=== PATIENT | female | born 1960 | race Caucasian/White ===

== ENCOUNTER 2021-08-15 05:29 | Outpatient (CLI) | payer OTHER, SELFPAY | END 2021-08-15 05:30 | disposition home or self-care (01) | LOC: AMB 08-25 15:04 | PROVIDERS: PCP Physician Assistant Medical; Visit Provider Family Medicine | DX: M25.561 Pain in right knee (principal) | CPT/HCPCS: A0425; A0429 ==

== ENCOUNTER 2021-08-15 05:46 | Emergency (ER) | payer OTHER, SELFPAY ==
[2021-08-15 05:55] VITALS: BP 113/83; PULSE 102; RESP 20; TEMP 36.6; O2SAT 94; BMI 33.3
--- NOTE | 2021-08-15 06:20 | XR_ITS ---
Final Report Patient: LYNN BAKER Facility:?[facility] Patient ID:?[id number] Site Patient ID:?[id number]. Site :?[id number] Study:?XRay Knee Right 2v-08/15/2021 6:58:51 AM Ordering Physician:Rome York Final Report: Indication: Knee pain. Technique: Right knee 2 views. Comparison: None. Findings: No acute fracture or dislocation. Joint spaces are preserved. Mild tricompartmental spurring. Small to moderate knee joint effusion. Soft tissues are unremarkable. Impression: Small to moderate knee joint effusion. No other acute findings. Dictated by Christa Rodríguez MD @ 08/15/2021 7:02:07 AM (Electronic Signature)
--- NOTE | 2021-08-15 06:22 | ED_ITS ---
HPI - Extremity Injury (Lower) General Time Seen by Provider: 06:21 Date Seen: 08/15/21 Chief Complaint: Extremity Pain/Injury, Lower Stated Complaint: Knee pain Time Seen by Provider: 08/15/21 05:53 Source: patient Mode of arrival: EMS Limitations: no limitations History of Present Illness HPI Narrative: Patient is a 61-year-old female with rheumatoid arthritis who presents by ambulance code there is no one else to bring her to the emergency room. She has had gradually increasing knee pain in her right knee. She was recently placed on prednisone course that significantly help this by her primary care physician. Remember injuring her right knee, it is not been warm, there is no history of fevers, she did go to the [address] last week. And they wrapped her knee. But otherwise did nothing. MD complaint: other Onset (ago): day(s) Injury: Right: knee Other symptoms: none Treatments prior to arrival: other Related Data Home Medications Medication Instructions Recorded Confirmed albuterol sulfate 2.5 mg/3 mL mg 08/15/21 (0.083 %) solution for nebulization ammonium lactate 12 % lotion TOPICAL 08/15/21 atorvastatin 40 mg tablet mg 08/15/21 baclofen 20 mg tablet mg 08/15/21 blood sugar diagnostic (Contour 08/15/21 08/15/21 Next Test Strips) blood-glucose meter (Contour Next 08/15/21 08/15/21 Meter) cetirizine 10 mg tablet mg 08/15/21 dapagliflozin 10 mg tablet mg 08/15/21 (Farxiga) duloxetine 60 mg capsule,delayed mg PO 08/15/21 release fluticasone propionate 50 INTRANASAL 08/15/21 mcg/actuation nasal spray,suspension folic acid 1 mg tablet 08/15/21 furosemide 40 mg tablet mg 08/15/21 gabapentin 300 mg capsule mg 08/15/21 glipizide 10 mg tablet, extended mg PO 08/15/21 release 24 hr glipizide 5 mg tablet mg 08/15/21 methotrexate sodium 2.5 mg tablet mg 08/15/21 mometasone-formoterol HFA 200 INHALATION 08/15/21 mcg-5 mcg/actuation aerosol inhaler (Dulera) montelukast 10 mg tablet mg 08/15/21 nystatin 100,000 unit/gram topical TOPICAL 08/15/21 powder (Nystop) risperidone 0.5 mg tablet mg 08/15/21 venlafaxine 150 mg mg PO 08/15/21 capsule,extended release 24 hr venlafaxine 75 mg capsule,extended mg PO 08/15/21 release 24 hr Allergies Allergy/AdvReac Type Severity Reaction Status Date / Time chlorpromazine Allergy seizure Verified 08/15/21 06:08 hydrocodone Allergy Unknown Verified 08/15/21 06:11 oxycodone Allergy Unknown Verified 08/15/21 06:11 Phenothiazines Allergy seizure Verified 08/15/21 06:11 etodolac Allergy rash Uncoded 08/15/21 06:11 morphine Allergy Unknown Uncoded 08/15/21 06:11 pregabalin Allergy Unknown Uncoded 08/15/21 06:11 Review of Systems Status of ROS: Reports: 6 or more systems reviewed and unremarkable except as noted in History and below [facility] Medical History (Updated 08/15/21 @ 07:03 by Jaylen Wu MD) Asthma Diabetes Rheumatoid arthritis Seizure Surgical History (Updated 08/15/21 @ 06:29 by Radha Ventura RN) History of appendectomy Social History Smoking Status: Current every day smoker What tobacco products do you use: cigarettes Second hand tobacco smoke exposure: No How often do you have a drink containing alcohol: never AUDIT-C Alcohol total score: 0 Non-prescribed substance use: denies use Exam Narrative: Exam Narrative: 61-year-old woman I find sleeping in the room when I enter the room. Her right knee is more swollen than the left in fact the left knee is wrapped. Her range of motion is from +5 to +40. With pain there is no palpable warmth to the right knee. She appears to have a small effusion, popliteal fossa is clear, with normal pulses. ACL and PCL seem intact. As do the lateral medial collateral ligaments. Const: Vital Signs, click to edit/add: Vital Signs - 24 hr 08/15/21 05:55 Temperature 97.8 F Pulse Rate [Right Pulse Oximeter] 102 H Respiratory Rate 20 Blood Pressure [Ri ght Upper Arm] 113/83 Pulse Oximetry 94 Course Vital Signs Vital signs: Initial Vital Signs Temperature 97.8 F 08/15/21 05:55 Temperature Source Temporal Artery Scan 08/15/21 05:55 Pulse Rate 102 H 08/15/21 05:55 Pulse Rhythm 08/15/21 05:55 Pulse Strength 3+ Normal 08/15/21 05:55 Respiratory Rate 20 08/15/21 05:55 Blood Pressure 113/83 08/15/21 05:55 Blood Pressure Mean 93 08/15/21 05:55 Blood Pressure Position Sitting 08/15/21 05:55 Pulse Oximetry 94 08/15/21 05:55 Oxygen Delivery Method 08/15/21 05:55 Vital Signs Temperature 97.8 F 08/15/21 05:55 Pulse Rate 102 H 08/15/21 05:55 Respiratory Rate 20 08/15/21 05:55 Blood Pressure 113/83 08/15/21 05:55 Pulse Oximetry 94 08/15/21 05:55 Temperature 97.8 F 08/15/21 05:55 Pulse Rate 102 H 08/15/21 05:55 Respiratory Rate 20 08/15/21 05:55 Blood Pressure 113/83 08/15/21 05:55 Pulse Oximetry 94 08/15/21 05:55 MDM - Extremity Injury (Lower) MDM Narrative Medical decision making narrative: 61-year-old female who suffers from rheumatoid arthritis who likely has a flare of her rheumatoid arthritis. She was recently on prednisone that was stopped. I think it would be not unreasonable to give her a longer tapering course. She will need to follow up with likely her primary care physician Orthopedics for ongoing care. I think it is unlikely that this is infectious, or related to a gouty arthropathy. I will give her a tapering dose of prednisone via instymeds. I did ask chest with her this will elevate her sugars. Differential Diagnosis Differential diagnosis: Likely ankle sprain and strain and acute internal derangement of knee Medical Records Attestation: I reviewed the patient's medical records. Medical records narrative: I reviewed the patient's CCD, active problems include rheumatoid arthritis, diabetes mellitus, depression, alcohol abuse in remission, asthma, biceps tendinitis, bipolar disorder, borderline personality disorder, chronic low back pain, compulsive skin picking, diabetic polyneuropathy, diverticulitis dysphagia fibromyalgia, hoarding behavior, memory impairment, meralgia paresthetica, PTSD, chondromalacia of patella, Imaging Data Right knee x-ray two view: Attestation: I have reviewed the pertinent imaging results. My impression: Mild to moderate arthritis, effusion noted no fracture by my review. Radiologist's impression: Patient: LYNN BAKER Facility:?[facility] Patient ID:?[id number] Site Patient ID:?[id number]. Site :?[id number] Study:?XRay Knee Right 2v-08/15/2021 6:58:51 AM Ordering Physician:Rome York Final Report: Indication: Knee pain. Technique: Right knee 2 views. Comparison: None. Findings: No acute fracture or dislocation. Joint spaces are preserved. Mild tricompartmental spurring. Small to moderate knee joint effusion. Soft tissues are unremarkable. Impression: Small to moderate knee joint effusion. No other acute findings. Dictated by Christa Rodríguez MD @ 08/15/2021 7:02:07 AM (Electronic Signature) Discharge Plan Discharge Clinical Impression: Acute internal derangement of knee Patient Disposition: Home, Self-Care Condition: Stable Instructions: Knee Pain (ED) Activity Level: Weight Bearing as Tolerated Prescriptions: No Action furosemide 40 mg tablet 0RF atorvastatin 40 mg tablet 0RF Label Comments: TAKE ONE TABLET BY MOUTH AT BEDTIME venlafaxine 75 mg capsule,extended release 24hr PO 0RF Label Comments: TAKE ONE CAPSULE BY MOUTH ONCE DAILY WITH A MEAL albuterol sulfate 2.5 mg /3 mL (0.083 %) solution for nebulization 0RF Label Comments: INHALE 3 ML (2.5 MG) VIA A NEBULIZER EVERY 4 HOURS IF NEEDED. ammonium lactate 12 % lotion TOPICAL 0RF Label Comments: APPLY TOPICALLY TO AFFECTED AREA(S) 2 TIMES DAILY. (DME) blood-glucose meter [Contour Next Meter] Misc MISCELLANEOUS 0RF Label Comments: DISPENSE METER, TEST STRIPS, LANCETS COVERED BY PT INS. E11.65 NIDDM TYPE II, UNCONTROLLED - TEST 3 TIMES/DAY, REASON: HYPOGLYCEMIA cetirizine 10 mg tablet 0RF Label Comments: TAKE 1 TABLET BY MOUTH ONCE DAILY glipizide 10 mg tablet extended release 24hr PO 0RF Label Comments: TAKE 1 TABLET BY MOUTH ONCE DAILY BEFORE A MEAL venlafaxine 150 mg capsule,extended release 24hr PO 0RF Label Comments: TAKE ONE CAPSULE BY MOUTH ONCE DAILY WITH A MEAL (DME) Contour Next Test Strips Strip MISCELLANEOUS 0RF Label Comments: TEST BLOOD SUGARS 3 TIMES PER DAY. baclofen 20 mg tablet 0RF Label Comments: TAKE 1 TABLET BY MOUTH THREE TIMES DAILY methotrexate sodium 2.5 mg tablet 0RF Label Comments: TAKE 10 TABLETS (25MG) BY MOUTH ONCE WEEKLY gabapentin 300 mg capsule 0RF folic acid 1 mg tablet 0RF Label Comments: TAKE 1 TABLET BY MOUTH ONCE DAILY montelukast 10 mg tablet 0RF Label Comments: TAKE 1 TABLET BY MOUTH ONCE DAILY AT BEDTIME nystatin [Nystop] 100,000 unit/gram powder TOPICAL 0RF Label Comments: APPLY 1 STRIP TOPICALLY TO AFFECTED AREA(S) 3 TIMES DAILY. fluticasone propionate 50 mcg/actuation spray,suspension INTRANASAL 0RF Label Comments: INSTILL 1 SPRAY INTO EACH NOSTRIL TWICE DAILY NEEDED glipizide 5 mg tablet 0RF Label Comments: TAKE ONE TABLET BY MOUTH ONCE DAILY BEFORE A MEAL risperidone 0.5 mg tablet 0RF Label Comments: TAKE 1 TABLET BY MOUTH ONCE DAILY IN THE AFTERNOON duloxetine 60 mg capsule,delayed release(DR/EC) PO 0RF Label Comments: TAKE 1 CAPSULE BY MOUTH TWICE DAILY Dulera 200-5 mcg/actuation HFA aerosol inhaler INHALATION 0RF Label Comments: INHALE 2 PUFFS BY MOUTH TWICE A DAY Farxiga 10 mg tablet 0RF Follow Up/Referrals: Silvia Campos PA-C [Primary Care Provider] - Stand Alone Forms: [facility] Info Instructions
--- NOTE | 2021-08-15 07:34 | PC.NURSE ---
discharge instructions given, pt given insty med for prednisone, left ER via wheelchair
== END 2021-08-15 07:30 | disposition home or self-care (01) ==
PROVIDERS: Emergency Provider Family Medicine; PCP Physician Assistant Medical
DX: M23.91 Unspecified internal derangement of right knee (principal)
CPT/HCPCS: 73560; 99282; 99283

== ENCOUNTER 2021-09-09 19:03 | Outpatient (CLI) | payer OTHER, SELFPAY | END 2021-09-09 19:04 | disposition home or self-care (01) | LOC: AMB 10-01 10:57 | PROVIDERS: PCP Physician Assistant Medical; Visit Provider Internal Medicine | DX: M25.561 Pain in right knee (principal) | CPT/HCPCS: A0425; A0429 ==

== ENCOUNTER 2021-09-09 19:26 | Emergency (ER) | payer OTHER, SELFPAY ==
[2021-09-09 19:35] VITALS: BP 144/66; PULSE 93; RESP 16; TEMP 36.7; O2SAT 98; BMI 34.9
--- NOTE | 2021-09-09 19:59 | ED_ITS ---
HPI - General Adult General Chief complaint: Unspecified Complaint, Adult Stated complaint: Knee Pain Time Seen by Provider: 09/09/21 19:48 History of Present Illness HPI narrative: Patient is a his chronic knee pain new showed osteoarthritis. He has had no. She has orthopedic follow-up next month. She is unable to get help with her severe pain fevers no chills no redness. She otherwise is feeling well. She she would be able to safely wait to her orthopedic appointment in 3 weeks. This time pain is severe. Room Related Data Home Medications Medication Instructions Recorded Confirmed albuterol sulfate 2.5 mg/3 mL mg 08/15/21 (0.083 %) solution for nebulization ammonium lactate 12 % lotion TOPICAL 08/15/21 atorvastatin 40 mg tablet mg 08/15/21 baclofen 20 mg tablet mg 08/15/21 blood sugar diagnostic (Contour 08/15/21 08/15/21 Next Test Strips) blood-glucose meter (Contour Next 08/15/21 08/15/21 Meter) cetirizine 10 mg tablet mg 08/15/21 dapagliflozin 10 mg tablet mg 08/15/21 (Farxiga) duloxetine 60 mg capsule,delayed mg PO 08/15/21 release fluticasone propionate 50 INTRANASAL 08/15/21 mcg/actuation nasal spray,suspension folic acid 1 mg tablet 08/15/21 furosemide 40 mg tablet mg 08/15/21 gabapentin 300 mg capsule mg 08/15/21 glipizide 10 mg tablet, extended mg PO 08/15/21 release 24 hr glipizide 5 mg tablet mg 08/15/21 methotrexate sodium 2.5 mg tablet mg 08/15/21 mometasone-formoterol HFA 200 INHALATION 08/15/21 mcg-5 mcg/actuation aerosol inhaler (Dulera) montelukast 10 mg tablet mg 08/15/21 nystatin 100,000 unit/gram topical TOPICAL 08/15/21 powder (Nystop) risperidone 0.5 mg tablet mg 08/15/21 venlafaxine 150 mg mg PO 08/15/21 capsule,extended release 24 hr venlafaxine 75 mg capsule,extended mg PO 08/15/21 release 24 hr Allergies Allergy/AdvReac Type Severity Reaction Status Date / Time chlorpromazine Allergy seizure Verified 08/15/21 06:08 hydrocodone Allergy Unknown Verified 08/15/21 06:11 oxycodone Allergy Unknown Verified 08/15/21 06:11 Phenothiazines Allergy seizure Verified 08/15/21 06:11 etodolac Allergy rash Uncoded 08/15/21 06:11 morphine Allergy Unknown Uncoded 08/15/21 06:11 pregabalin Allergy Unknown Uncoded 08/15/21 06:11 Review of Systems Status of ROS: Reports: 10 or more systems reviewed and unremarkable except as noted in History and below [facility] Medical History Asthma Diabetes Rheumatoid arthritis Seizure Surgical History History of appendectomy Social History Smoking Status: Current every day smoker What tobacco products do you use: cigarettes Second hand tobacco smoke exposure: No How often do you have a drink containing alcohol: never AUDIT-C Alcohol total score: 0 Non-prescribed substance use: denies use Exam Narrative: Exam Narrative: EXAM GENERAL: Patient appears comfortable and well. EYES: No scleral icterus. LYMPH: No supraclavicular or cervical lymphadenopathy. SKIN: Visible skin seen during exam normal or with benign process only. EXT: No dependent lower extremity pedal edema.Right knee is tender to palpation with a joint effusion. No signs of redness were warm HEART: Regular rate and rhythm with no murmurs, rubs, or gallops. LUNGS: Clear to auscultation bilaterally with no crackles or wheezes. ABD: Soft, non tender, non distended. PSYCH: Good eye contact, speech is not pressured. Const: Vital Signs, click to edit/add: Vital Signs - 24 hr 09/09/21 19:35 Temperature 98.1 F Pulse Rate [Right Pulse Oximeter] 93 Respiratory Rate 16 Blood Pressure [Ri ght Upper Arm] 144/66 H Pulse Oximetry 98 Course Course Hospital Course: discussion and decided to treat her with into Solu-Medrol as well as a 5 day course of prednisone. Patient's sugars me that she can now care her current medication. Vital Signs Vital signs: Initial Vital Signs Temperature 98.1 F 09/09/21 19:35 Temperature Source Temporal Artery Scan 09/09/21 19:35 Pulse Rate 93 09/09/21 19:35 Pulse Rhythm 09/09/21 19:35 Respiratory Rate 16 09/09/21 19:35 Blood Pressure 144/66 H 09/09/21 19:35 Blood Pressure Mean 92 09/09/21 19:35 Blood Pressure Position Supine 09/09/21 19:35 Pulse Oximetry 98 09/09/21 19:35 Oxygen Delivery Method 09/09/21 19:35 Vital Signs Temperature 98.1 F 09/09/21 19:35 Pulse Rate 93 09/09/21 19:35 Respiratory Rate 16 09/09/21 19:35 Blood Pressure 144/66 H 09/09/21 19:35 Pulse Oximetry 98 09/09/21 19:35 Temperature 98.1 F 09/09/21 19:35 Pulse Rate 93 09/09/21 19:35 Respiratory Rate 16 09/09/21 19:35 Blood Pressure 144/66 H 09/09/21 19:35 Pulse Oximetry 98 09/09/21 19:35 Discharge Plan Discharge Clinical Impression: Chronic pain of right knee Patient Disposition: Home, Self-Care Condition: Stable Instructions: Knee Pain (ED) Additional Instructions: Prednisone per Instymeds Ice Follow up with Orthopedics as previously scheduled Activity Level: No Restrictions Discharge Diet: Regular Prescriptions: No Action furosemide 40 mg tablet 0RF atorvastatin 40 mg tablet 0RF Label Comments: TAKE ONE TABLET BY MOUTH AT BEDTIME venlafaxine 75 mg capsule,extended release 24hr PO 0RF Label Comments: TAKE ONE CAPSULE BY MOUTH ONCE DAILY WITH A MEAL albuterol sulfate 2.5 mg /3 mL (0.083 %) solution for nebulization 0RF Label Comments: INHALE 3 ML (2.5 MG) VIA A NEBULIZER EVERY 4 HOURS IF NEEDED. ammonium lactate 12 % lotion TOPICAL 0RF Label Comments: APPLY TOPICALLY TO AFFECTED AREA(S) 2 TIMES DAILY. (DME) blood-glucose meter [Contour Next Meter] Misc MISCELLANEOUS 0RF Label Comments: DISPENSE METER, TEST STRIPS, LANCETS COVERED BY PT INS. E11.65 NIDDM TYPE II, UNCONTROLLED - TEST 3 TIMES/DAY, REASON: HYPOGLYCEMIA cetirizine 10 mg tablet 0RF Label Comments: TAKE 1 TABLET BY MOUTH ONCE DAILY glipizide 10 mg tablet extended release 24hr PO 0RF Label Comments: TAKE 1 TABLET BY MOUTH ONCE DAILY BEFORE A MEAL venlafaxine 150 mg capsule,extended release 24hr PO 0RF Label Comments: TAKE ONE CAPSULE BY MOUTH ONCE DAILY WITH A MEAL (DME) Contour Next Test Strips Strip MISCELLANEOUS 0RF Label Comments: TEST BLOOD SUGARS 3 TIMES PER DAY. baclofen 20 mg tablet 0RF Label Comments: TAKE 1 TABLET BY MOUTH THREE TIMES DAILY methotrexate sodium 2.5 mg tablet 0RF Label Comments: TAKE 10 TABLETS (25MG) BY MOUTH ONCE WEEKLY gabapentin 300 mg capsule 0RF folic acid 1 mg tablet 0RF Label Comments: TAKE 1 TABLET BY MOUTH ONCE DAILY montelukast 10 mg tablet 0RF Label Comments: TAKE 1 TABLET BY MOUTH ONCE DAILY AT BEDTIME nystatin [Nystop] 100,000 unit/gram powder TOPICAL 0RF Label Comments: APPLY 1 STRIP TOPICALLY TO AFFECTED AREA(S) 3 TIMES DAILY. fluticasone propionate 50 mcg/actuation spray,suspension INTRANASAL 0RF Label Comments: INSTILL 1 SPRAY INTO EACH NOSTRIL TWICE DAILY NEEDED glipizide 5 mg tablet 0RF Label Comments: TAKE ONE TABLET BY MOUTH ONCE DAILY BEFORE A MEAL risperidone 0.5 mg tablet 0RF Label Comments: TAKE 1 TABLET BY MOUTH ONCE DAILY IN THE AFTERNOON duloxetine 60 mg capsule,delayed release(DR/EC) PO 0RF Label Comments: TAKE 1 CAPSULE BY MOUTH TWICE DAILY Dulera 200-5 mcg/actuation HFA aerosol inhaler INHALATION 0RF Label Comments: INHALE 2 PUFFS BY MOUTH TWICE A DAY Farxiga 10 mg tablet 0RF Follow Up/Referrals: Silvia Campos PA-C [Primary Care Provider] - Stand Alone Forms: [facility] Info Instructions
[2021-09-09] MEDS: METHYLPREDNISOLONE SOD SUCC 40 MG/ML IM (20:22)
--- NOTE | 2021-09-09 22:48 | ED.NURSE ---
Pt can't find her keys. Staff looked several times in linens and all around the ED.
== END 2021-09-09 22:55 | disposition home or self-care (01) ==
LOC: ED 20:10
PROVIDERS: Emergency Provider Internal Medicine; PCP Physician Assistant Medical
DX: M25.561 Pain in right knee (principal)
CPT/HCPCS: 96372; 99283; 99284; J2920

== ENCOUNTER 2021-09-24 11:33 | Emergency (ER) | payer OTHER, SELFPAY ==
[2021-09-24] VITALS (14 sets, daily range): BP systolic 100–126; BP diastolic 50–83; PULSE 76–96; RESP 11–18; TEMP 36; O2SAT 91–100; BMI 38.3
[2021-09-24 12:37] LABS: Basophils Percent Auto 0.4 % (0.0-3.0); Eosinophils Percent Auto 1.4 % (0.0-7.0); Hematocrit 41.1 % (33.0-51.0); Hemoglobin* 12.8 gm/dL (12.0-16.0); Immature Granulocytes Abs Auto 0.01 K/uL (0.00-0.30); Lymphocytes Percent Auto 25.6 % (20-44); Mean Corpuscular HGB Conc 31 gm/dL (32-36); Mean Corpuscular Hemoglobin 28 pg (26-34); Mean Corpuscular Volume 89 fL (80-100); Monocytes Percent Auto 3.6 % (0.0-11.0); Neutrophils Percent Auto 68.6 % (42.0-72.0); Platelet Count* 124 K/uL (140-440); Red Blood Count 4.62 m/uL (4.00-5.20); White Blood Count* 2.81 K/uL (4.50-11.00)
[2021-09-24 12:46] LABS: Slide Review Reflex No
[2021-09-24 12:50] LABS: Chloride* 103 mmol/L (96-114); Sodium* 139 mmol/L (135-149)
[2021-09-24 12:53] LABS: Blood Urea Nitrogen* 11 mg/dL (7-30); Calcium* 8.6 mg/dL (8.4-10.6); Carbon Dioxide* 30 mmol/L (20-32); Creatinine* 0.5 mg/dL (0.5-1.5); Est. Creatinine Clearance* 109.01; Estimated Glomerular Filt Rate 108 ml/min; Glucose* 197 mg/dL (60-115)
[2021-09-24 12:56] LABS: Acetaminophen* < 10.0 ug/mL (10.0-30.0); Ethanol* < 0.01 % (0.01-0.03); Salicylate* < 1.0 mg/dL (1.0-10)
--- NOTE | 2021-09-24 12:56 | ED_ITS ---
HPI - Altered Mental Status General Date Seen: 09/24/21 <Jaylen Wu MD - Last Filed: 09/24/21 16:01> Chief Complaint: Altered Mental Status <Jaylen Wu MD - Last Filed: 09/24/21 16:01> Stated Complaint: Weakness <Jaylen Wu MD - Last Filed: 09/24/21 16:01> Time Seen by Provider: 09/24/21 11:41 <Jaylen Wu MD - Last Filed: 09/24/21 16:01> Source: patient, EMS and police <Jaylen Wu MD - Last Filed: 09/24/21 16:01> Mode of arrival: EMS <Jaylen Wu MD - Last Filed: 09/24/21 16:01> Limitations: altered mental status <Jaylen Wu MD - Last Filed: 09/24/21 16:01> History of Present Illness HPI narrative: Patient is a 61-year-old female who was found by friends at home, unresponsive. Police were activated, and were able to wake her up with a sternal rub, EMS was then brought over, and she was speaking to them, with voice stimulation. She does become somnolent when she is not stimulated. She admits to taking a whole bunch of marijuana gummies, for her chronic pain. She denies that this was suicidal, and said she was just tired of the chronic pain. She is unable to verbalize to me how many she took. She has not taken any other drugs or alcohol, she is supposed to wear CPAP but has not been wearing them for the last couple months. No history of falls injury fevers chills or sweats, she can give me no history of when she took her gummies. Except sometime after midnight <Jaylen Wu MD - Last Filed: 09/24/21 16:01> MD complaint: altered mental status and decreased responsiveness <Jaylen Wu MD - Last Filed: 09/24/21 16:01> Onset (ago): hour(s) <Jaylen Wu MD - Last Filed: 09/24/21 16:01> Associated symptoms: denies other symptoms <Jaylen Wu MD - Last Filed: 09/24/21 16:01> Related Data Home Medications: Home Medications Medication Instructions Recorded Confirmed albuterol sulfate 2.5 mg/3 mL mg 08/15/21 (0.083 %) solution for nebulization ammonium lactate 12 % lotion topical 08/15/21 atorvastatin 40 mg tablet mg 08/15/21 baclofen 20 mg tablet mg 08/15/21 blood sugar diagnostic (Contour 08/15/21 08/15/21 Next Test Strips) blood-glucose meter (Contour Next 08/15/21 08/15/21 Meter) cetirizine 10 mg tablet mg 08/15/21 dapagliflozin 10 mg tablet mg 08/15/21 (Farxiga) duloxetine 60 mg capsule,delayed mg PO 08/15/21 release fluticasone propionate 50 intranasal 08/15/21 mcg/actuation nasal spray,suspension folic acid 1 mg tablet 08/15/21 furosemide 40 mg tablet mg 08/15/21 gabapentin 300 mg capsule mg 08/15/21 glipizide 10 mg tablet, extended mg PO 08/15/21 release 24 hr glipizide 5 mg tablet mg 08/15/21 methotrexate sodium 2.5 mg tablet mg 08/15/21 mometasone-formoterol HFA 200 inhalation 08/15/21 mcg-5 mcg/actuation aerosol inhaler (Dulera) montelukast 10 mg tablet mg 08/15/21 nystatin 100,000 unit/gram topical topical 08/15/21 powder (Nystop) risperidone 0.5 mg tablet mg 08/15/21 venlafaxine 150 mg mg PO 08/15/21 capsule,extended release 24 hr venlafaxine 75 mg capsule,extended mg PO 08/15/21 release 24 hr <Jaylen Wu MD - Last Filed: 09/24/21 16:01> Allergies/Adverse Reactions: Allergies Allergy/AdvReac Type Severity Reaction Status Date / Time chlorpromazine Allergy seizure Verified 08/15/21 06:08 hydrocodone Allergy Unknown Verified 08/15/21 06:11 oxycodone Allergy Unknown Verified 08/15/21 06:11 Phenothiazines Allergy seizure Verified 08/15/21 06:11 etodolac Allergy rash Uncoded 08/15/21 06:11 morphine Allergy Unknown Uncoded 08/15/21 06:11 pregabalin Allergy Unknown Uncoded 08/15/21 06:11 <Jaylen Wu MD - Last Filed: 09/24/21 16:01> Review of Systems Status of ROS: Reports: unobtainable due to mental status <Jaylen Wu MD - Last Filed: 09/24/21 16:01> [facility] Medical History: Medical History Asthma Diabetes Rheumatoid arthritis Seizure <Jaylen Wu MD - Last Filed: 09/24/21 16:01> Surgical History: Surgical History History of appendectomy <Jaylen Wu MD - Last Filed: 09/24/21 16:01> Social History: Social History Smoking Status: Current every day smoker What tobacco products do you use: cigarettes Second hand tobacco smoke exposure: No How often do you have a drink containing alcohol: never AUDIT-C Alcohol total score: 0 Non-prescribed substance use: other Non-prescribed substance use details: cbd gummies <Jaylen Wu MD - Last Filed: 09/24/21 16:01> Exam Narrative: Exam Narrative: I find her in the room and she does arouse to me talking to her, yelling at her, she is somnolent, and falls back to sleep. Her saturations vary between 90 and 69% on room air. He clearly has sleep apnea. Her pupils are equal round reactive to light slightly large, she tracks normally, with absence of nystagmus her TMs are normal, oropharynx is normal. She has a bit of a thick neck, but no meningismus, no evidence of trauma over head or neck region. Chest is good air entry bilaterally but slow respirations. It sounds no clicks murmurs or gallops abdomen is soft and obese there is no guarding no past few megaly neurologically she moves all extremities independently well. She has pain in her right knee w hich she says is chronic, when she lifts her right leg, but otherwise is fairly normal. She denies suicidal or homicidal ideation. There is no evidence of rashes or bruising. <Jaylen Wu MD - Last Filed: 09/24/21 16:01> Const: Vital Signs, click to edit/add: Vital Signs - 24 hr 09/24/21 15:00 09/24/21 18:20 09/24/21 19:30 Temperature Pulse Rate [Pulse Oximeter] 82 81 81 Respiratory Rate 18 Blood Pressure [Le ft Upper Arm] 122/83 113/72 Pulse Oximetry 97 97 100 Oxygen Delivery Me thod Room Air Nasal Cannula Nasal Cannula Oxygen Flow Rate 2 2 09/24/21 22:00 09/24/21 23:30 09/25/21 00:00 Temperature Pulse Rate [Pulse Oximeter] 85 96 Respiratory Rate 16 11 L Blood Pressure [Le ft Upper Arm] 110/64 107/53 L Pulse Oximetry 96 91 Oxygen Delivery Me thod Room Air Room Air Oxygen Flow Rate 09/25/21 00:21 09/24/21 20:30 09/24/21 23:00 Temperature Pulse Rate [Pulse Oximeter] 92 86 81 Respiratory Rate 13 Blood Pressure [Le ft Upper Arm] 100/62 Pulse Oximetry 95 93 98 Oxygen Delivery Me thod Room Air Room Air Room Air Oxygen Flow Rate 09/25/21 06:00 09/25/21 08:00 Temperature 97.8 F Pulse Rate [Pulse Oximeter] 90 92 Respiratory Rate 16 18 Blood Pressure [Le ft Upper Arm] 119/71 127/73 Pulse Oximetry 94 95 Oxygen Delivery Me thod Carrick Nasal Ca nnula Nasal Cannula Oxygen Flow Rate <Jaylen Wu MD - Last Filed: 09/24/21 16:01> Vital Signs, click to edit/add: Vital Signs - 24 hr 09/24/21 15:00 09/24/21 18:20 09/24/21 19:30 Temperature Pulse Rate [Pulse Oximeter] 82 81 81 Respiratory Rate 18 Blood Pressure [Le ft Upper Arm] 122/83 113/72 Pulse Oximetry 97 97 100 Oxygen Delivery Me thod Room Air Nasal Cannula Nasal Cannula Oxygen Flow Rate 2 2 09/24/21 22:00 09/24/21 23:30 09/25/21 00:00 Temperature Pulse Rate [Pulse Oximeter] 85 96 Respiratory Rate 16 11 L Blood Pressure [Le ft Upper Arm] 110/64 107/53 L Pulse Oximetry 96 91 Oxygen Delivery Me thod Room Air Room Air Oxygen Flow Rate 09/25/21 00:21 09/24/21 20:30 09/24/21 23:00 Temperature Pulse Rate [Pulse Oximeter] 92 86 81 Respiratory Rate 13 Blood Pressure [Le ft Upper Arm] 100/62 Pulse Oximetry 95 93 98 Oxygen Delivery Me thod Room Air Room Air Room Air Oxygen Flow Rate 09/25/21 06:00 09/25/21 08:00 Temperature 97.8 F Pulse Rate [Pulse Oximeter] 90 92 Respiratory Rate 16 18 Blood Pressure [Le ft Upper Arm] 119/71 127/73 Pulse Oximetry 94 95 Oxygen Delivery Me thod Carrick Nasal Ca nnula Nasal Cannula Oxygen Flow Rate <Idris Gómez MD - Last Filed: 09/24/21 22:46> Vital Signs, click to edit/add: Vital Signs - 24 hr 09/24/21 15:00 09/24/21 18:20 09/24/21 19:30 Temperature Pulse Rate [Pulse Oximeter] 82 81 81 Respiratory Rate 18 Blood Pressure [Le ft Upper Arm] 122/83 113/72 Pulse Oximetry 97 97 100 Oxygen Delivery Me thod Room Air Nasal Cannula Nasal Cannula Oxygen Flow Rate 2 2 09/24/21 22:00 09/24/21 23:30 09/25/21 00:00 Temperature Pulse Rate [Pulse Oximeter] 85 96 Respiratory Rate 16 11 L Blood Pressure [Le ft Upper Arm] 110/64 107/53 L Pulse Oximetry 96 91 Oxygen Delivery Me thod Room Air Room Air Oxygen Flow Rate 09/25/21 00:21 09/24/21 20:30 09/24/21 23:00 Temperature Pulse Rate [Pulse Oximeter] 92 86 81 Respiratory Rate 13 Blood Pressure [Le ft Upper Arm] 100/62 Pulse Oximetry 95 93 98 Oxygen Delivery Me thod Room Air Room Air Room Air Oxygen Flow Rate 09/25/21 06:00 09/25/21 08:00 Temperature 97.8 F Pulse Rate [Pulse Oximeter] 90 92 Respiratory Rate 16 18 Blood Pressure [Le ft Upper Arm] 119/71 127/73 Pulse Oximetry 94 95 Oxygen Delivery Me thod Carrick Nasal Ca nnula Nasal Cannula Oxygen Flow Rate <Syed Frye MD - Last Filed: 10/01/21 22:43> Vital Signs, click to edit/add: Vital Signs - 24 hr 09/24/21 15:00 09/24/21 18:20 09/24/21 19:30 Temperature Pulse Rate [Pulse Oximeter] 82 81 81 Respiratory Rate 18 Blood Pressure [Le ft Upper Arm] 122/83 113/72 Pulse Oximetry 97 97 100 Oxygen Delivery Me thod Room Air Nasal Cannula Nasal Cannula Oxygen Flow Rate 2 2 09/24/21 22:00 09/24/21 23:30 09/25/21 00:00 Temperature Pulse Rate [Pulse Oximeter] 85 96 Respiratory Rate 16 11 L Blood Pressure [Le ft Upper Arm] 110/64 107/53 L Pulse Oximetry 96 91 Oxygen Delivery Me thod Room Air Room Air Oxygen Flow Rate 09/25/21 00:21 09/24/21 20:30 09/24/21 23:00 Temperature Pulse Rate [Pulse Oximeter] 92 86 81 Respiratory Rate 13 Blood Pressure [Le ft Upper Arm] 100/62 Pulse Oximetry 95 93 98 Oxygen Delivery Me thod Room Air Room Air Room Air Oxygen Flow Rate 09/25/21 06:00 09/25/21 08:00 Temperature 97.8 F Pulse Rate [Pulse Oximeter] 90 92 Respiratory Rate 16 18 Blood Pressure [Le ft Upper Arm] 119/71 127/73 Pulse Oximetry 94 95 Oxygen Delivery Me thod Carrick Nasal Ca nnula Nasal Cannula Oxygen Flow Rate <Andrei Wong MD - Last Filed: 09/25/21 14:17> Documenting provider has reviewed patient's vital signs: yes <Jaylen Wu MD - Last Filed: 09/24/21 16:01> Course Course Hospital Course: Multiple differential diagnoses were considered for altered mental status. The life-threatening differential diagnosis considered include: Meningitis/encephalitis, bacteremia, subdural, cerebrovascular accident, SAH, and hypertensive encephalopathy. Other differential diagnosis included include medication effect, hypoxia, hypoglycemia, hypercalcemia, hypo or hypernatremia, hypothyroidism, hepatic encephalopathy, carbon monoxide poisoning, UTI, pneumonia, depression, seizure, as well as other etiologies. I met with our director social, who saw that the patient was in the emergency [facility]. There has been some issues with hoarding, and the patient is actually getting removed from their place of residence due to the fact that there is water in they feel it is unsafe. Our director social will call the [facility] director social at this point. There is some unsure in a so whether she can go back to the current living situation. <Jaylen Wu MD - Last Filed: 09/24/21 16:01> Reevaluation(s) Reevaluation #1: Patient is arousable, I went back in and talked her she has no pain, vital signs are stable currently waiting on head CT, and patient to be improving, she will be signed out to oncoming ER physician for further disposition and follow- up with a head CT. <Jaylen Wu MD - Last Filed: 09/24/21 16:01> Time: 16:00 <Jaylen Wu MD - Last Filed: 09/24/21 16:01> Reevaluation #2: Patient remains semi obtunded but does answer questions. <Idris Gómez MD - Last Filed: 09/24/21 22:46> Time: 22:45 <Idris Gómez MD - Last Filed: 09/24/21 22:46> Reevaluation #3: I assumed care of this patient from Dr. Gómez. She is comfortable and sleeping. conference services coordinator will need to see her in the morning and determine if she can be discharged back to her home which apparently is not inhabitable according to the notes. <Syed Frye MD - Last Filed: 10/01/21 22:43> Vital Signs Vital signs: Initial Vital Signs Pulse Rate 81 09/24/21 11:48 Blood Pressure 110/67 09/24/21 11:48 Blood Pressure Mean 81 09/24/21 11:48 Blood Pressure Position Supine 09/24/21 11:48 Pulse Oximetry 92 09/24/21 11:48 Vital Signs Pulse Rate 81 09/24/21 11:48 Blood Pressure 110/67 09/24/21 11:48 Pulse Oximetry 92 09/24/21 11:48 Temperature 97.8 F 09/25/21 08:00 Pulse Rate 92 09/25/21 08:00 Respiratory Rate 18 09/25/21 08:00 Blood Pressure 127/73 09/25/21 08:00 Pulse Oximetry 95 09/25/21 08:00 Oxygen Delivery Method 09/25/21 08:00 Oxygen Flow Rate 2 09/24/21 19:30 <Jaylen Wu MD - Last Filed: 09/24/21 16:01> Initial Vital Signs Pulse Rate 81 09/24/21 11:48 Blood Pressure 110/67 09/24/21 11:48 Blood Pressure Mean 81 09/24/21 11:48 Blood Pressure Position Supine 09/24/21 11:48 Pulse Oximetry 92 09/24/21 11:48 Vital Signs Pulse Rate 81 09/24/21 11:48 Blood Pressure 110/67 09/24/21 11:48 Pulse Oximetry 92 09/24/21 11:48 Temperature 97.8 F 09/25/21 08:00 Pulse Rate 92 09/25/21 08:00 Respiratory Rate 18 09/25/21 08:00 Blood Pressure 127/73 09/25/21 08:00 Pulse Oximetry 95 09/25/21 08:00 Oxygen Delivery Method 09/25/21 08:00 Oxygen Flow Rate 2 09/24/21 19:30 <Idris Gómez MD - Last Filed: 09/24/21 22:46> Initial Vital Signs Pulse Rate 81 09/24/21 11:48 Blood Pressure 110/67 09/24/21 11:48 Blood Pressure Mean 81 09/24/21 11:48 Blood Pressure Position Supine 09/24/21 11:48 Pulse Oximetry 92 09/24/21 11:48 Vital Signs Pulse Rate 81 09/24/21 11:48 Blood Pressure 110/67 09/24/21 11:48 Pulse Oximetry 92 09/24/21 11:48 Temperature 97.8 F 09/25/21 08:00 Pulse Rate 92 09/25/21 08:00 Respiratory Rate 18 09/25/21 08:00 Blood Pressure 127/73 09/25/21 08:00 Pulse Oximetry 95 09/25/21 08:00 Oxygen Delivery Method 09/25/21 08:00 Oxygen Flow Rate 2 09/24/21 19:30 <Syed Frye MD - Last Filed: 10/01/21 22:43> Initial Vital Signs Pulse Rate 81 09/24/21 11:48 Blood Pressure 110/67 09/24/21 11:48 Blood Pressure Mean 81 09/24/21 11:48 Blood Pressure Position Supine 09/24/21 11:48 Pulse Oximetry 92 09/24/21 11:48 Vital Signs Pulse Rate 81 09/24/21 11:48 Blood Pressure 110/67 09/24/21 11:48 Pulse Oximetry 92 09/24/21 11:48 Temperature 97.8 F 09/25/21 08:00 Pulse Rate 92 09/25/21 08:00 Respiratory Rate 18 09/25/21 08:00 Blood Pressure 127/73 09/25/21 08:00 Pulse Oximetry 95 09/25/21 08:00 Oxygen Delivery Method 09/25/21 08:00 Oxygen Flow Rate 2 09/24/21 19:30 <Andrei Wong MD - Last Filed: 09/25/21 14:17> MDM - Altered Mental Status MDM Narrative Medical decision making narrative: Multiple differential diagnoses were considered for altered mental status. The life-threatening differential diagnosis considered include: Meningitis/encephalitis, bacteremia, subdural, cerebrovascular accident, SAH, and hypertensive encephalopathy. Other differential diagnosis included include medication effect, hypoxia, hypoglycemia, hypercalcemia, hypo or hypernatremia, hypothyroidism, hepatic encephalopathy, carbon monoxide poisoning, UTI, pneumonia, depression, seizure, as well as other etiologies. We will start an IV EKG I will do a head CT further to further differentiate what is going on here. I believe this is likely due to overdose of her ma rijuana gummies. Her glucose by the ambulance was normal. <Jaylen Wu MD - Last Filed: 09/24/21 16:01> Multiple differential diagnoses were considered for altered mental status. The life-threatening differential diagnosis considered include: Meningitis/encephalitis, bacteremia, subdural, cerebrovascular accident, SAH, and hypertensive encephalopathy. Other differential diagnosis included include medication effect, hypoxia, hypoglycemia, hypercalcemia, hypo or hypernatremia, hypothyroidism, hepatic encephalopathy, carbon monoxide poisoning, UTI, pneumonia, depression, seizure, as well as other etiologies. We will start an IV EKG I will do a head CT further to further differentiate what is going on here. I believe this is likely due to overdose of her marijuana gummies. Her glucose by the ambulance was normal. Addendum: The patient has been up aroused, in no distress, her lab studies look reassuring. She wishes to go home. Social Service contacted [facility] who knows about her home situation and they have known about this for months, and she is safe to be discharged home at this time they are making additional plans. Return as needed, disposition per prior notes. <Andrei Wong MD - Last Filed: 09/25/21 14:17> Differential Diagnosis Differential diagnosis: Likely alcoholic intoxication, altered mental status, delirium, dementia, hypoglycemia, hyponatremia, subarachnoid hemorrhage and sepsis <Jaylen Wu MD - Last Filed: 09/24/21 16:01> Medical Records Attestation: I reviewed the patient's medical records. <Jaylen Wu MD - Last Filed: 09/24/21 16:01> Lab Data Attestation: I reviewed the patient's lab results. <Jaylen Wu MD - Last Filed: 09/24/21 16:01> Labs: Lab Results 09/24/21 09/24/21 09/24/21 Range/Units 12:17 12:25 12:25 WBC 2.81 L (4.50-11.00) K/uL RBC 4.62 (4.00-5.20) m/uL Hgb 12.8 (12.0-16.0) gm/dL Hct 41.1 (33.0-51.0) % MCV 89 (80-100) fL MCH 28 (26-34) pg MCHC 31 L (32-36) gm/dL RDW Coeff of Anat 17.0 H (11.5-15.5) % Plt Count 124 L (140-440) K/uL Neut % (Auto) 68.6 (42.0-72.0) % Lymph % (Auto) 25.6 (20-44) % Jefferson % (Auto) 3.6 (0.0-11.0) % Eos % (Auto) 1.4 (0.0-7.0) % Baso % (Auto) 0.4 (0.0-3.0) % Neut # (Auto) 1.90 (1.7-7.0) K/uL Lymph # (Auto) 0.70 L (0.90-2.90) K/uL Jefferson # (Auto) 0.10 (0.00-0.90) K/UL Eos # (Auto) 0.00 (0.00-0.50) K/uL Baso # (Auto) 0.00 (0.00-0.30) K/uL Abs Immat Gran (auto) 0.01 (0.00-0.30) K/uL ABG pH (7.35-7.45) ABG pCO2 (35-45) mmHG ABG pO2 (80-105) mmHG ABG HCO3 (21-28) mmol/L ABG Total CO2 (21-30) mmol/l ABG O2 Saturation (92-100) % ABG Base Excess (-3.0-3.0) mmol/L Sodium 139 (135-149) mmol/L Potassium 4.0 (3.6-5.1) mmol/L Chloride 103 (96-114) mmol/L Carbon Dioxide 30 (20-32) mmol/L BUN 11 (7-30) mg/dL Creatinine 0.5 (0.5-1.5) mg/dL Estimated Creat Clear 109.01 Estimated GFR 108 ml/min Glucose 197 H (60-115) mg/dL Calcium 8.6 (8.4-10.6) mg/dL Troponin I < 0.01 L (0.01-0.04) ng/mL NT-Pro-B Natriuret Pep 47 (0-125) PG/mL Salicylates < 1.0 L (1.0-10) mg/dL Acetaminophen < 10.0 L (10.0-30.0) ug/mL Ethyl Alcohol < 0.01 L (0.01-0.03) % SARS-CoV-2 (PCR) Negative SARS-CoV-2 (Negative) Influenza Type A (PCR) Negative PCR FLU A (Negative) Influenza Type B (PCR) Negative PCR FLU B (Negative) RSV (PCR) Negative PCR RSV (Negative) 09/24/21 Range/Units 14:02 WBC (4.50-11.00) K/uL RBC (4.00-5.20) m/uL Hgb (12.0-16.0) gm/dL Hct (33.0-51.0) % MCV (80-100) fL MCH (26-34) pg MCHC (32-36) gm/dL RDW Coeff of Anat (11.5-15.5) % Plt Count (140-440) K/uL Neut % (Auto) (42.0-72.0) % Lymph % (Auto) (20-44) % Jefferson % (Auto) (0.0-11.0) % Eos % (Auto) (0.0-7.0) % Baso % (Auto) (0.0-3.0) % Neut # (Auto) (1.7-7.0) K/uL Lymph # (Auto) (0.90-2.90) K/uL Jefferson # (Auto) (0.00-0.90) K/UL Eos # (Auto) (0.00-0.50) K/uL Baso # (Auto) (0.00-0.30) K/uL Abs Immat Gran (auto) (0.00-0.30) K/uL ABG pH 7.41 (7.35-7.45) ABG pCO2 47 H (35-45) mmHG ABG pO2 86.7 (80-105) mmHG ABG HCO3 30 H (21-28) mmol/L ABG Total CO2 27 (21-30) mmol/l ABG O2 Saturation 97 (92-100) % ABG Base Excess 4.2 H (-3.0-3.0) mmol/L Sodium (135-149) mmol/L Potassium (3.6-5.1) mmol/L Chloride (96-114) mmol/L Carbon Dioxide (20-32) mmol/L BUN (7-30) mg/dL Creatinine (0.5-1.5) mg/dL Estimated Creat Clear Estimated GFR ml/min Glucose (60-115) mg/dL Calcium (8.4-10.6) mg/dL Troponin I (0.01-0.04) ng/mL NT-Pro-B Natriuret Pep (0-125) PG/mL Salicylates (1.0-10) mg/dL Acetaminophen (10.0-30.0) ug/mL Ethyl Alcohol (0.01-0.03) % SARS-CoV-2 (PCR) (Negative) Influenza Type A (PCR) (Negative) Influenza Type B (PCR) (Negative) RSV (PCR) (Negative) <Jaylen Wu MD - Last Filed: 09/24/21 16:01> Lab Results 09/24/21 09/24/21 09/24/21 Range/Units 12:17 12:25 12:25 WBC 2.81 L (4.50-11.00) K/uL RBC 4.62 (4.00-5.20) m/uL Hgb 12.8 (12.0-16.0) gm/dL Hct 41.1 (33.0-51.0) % MCV 89 (80-100) fL MCH 28 (26-34) pg MCHC 31 L (32-36) gm/dL RDW Coeff of Anat 17.0 H (11.5-15.5) % Plt Count 124 L (140-440) K/uL Neut % (Auto) 68.6 (42.0-72.0) % Lymph % (Auto) 25.6 (20-44) % Jefferson % (Auto) 3.6 (0.0-11.0) % Eos % (Auto) 1.4 (0.0-7.0) % Baso % (Auto) 0.4 (0.0-3.0) % Neut # (Auto) 1.90 (1.7-7.0) K/uL Lymph # (Auto) 0.70 L (0.90-2.90) K/uL Jefferson # (Auto) 0.10 (0.00-0.90) K/UL Eos # (Auto) 0.00 (0.00-0.50) K/uL Baso # (Auto) 0.00 (0.00-0.30) K/uL Abs Immat Gran (auto) 0.01 (0.00-0.30) K/uL ABG pH (7.35-7.45) ABG pCO2 (35-45) mmHG ABG pO2 (80-105) mmHG ABG HCO3 (21-28) mmol/L ABG Total CO2 (21-30) mmol/l ABG O2 Saturation (92-100) % ABG Base Excess (-3.0-3.0) mmol/L Sodium 139 (135-149) mmol/L Potassium 4.0 (3.6-5.1) mmol/L Chloride 103 (96-114) mmol/L Carbon Dioxide 30 (20-32) mmol/L BUN 11 (7-30) mg/dL Creatinine 0.5 (0.5-1.5) mg/dL Estimated Creat Clear 109.01 Estimated GFR 108 ml/min Glucose 197 H (60-115) mg/dL Calcium 8.6 (8.4-10.6) mg/dL Troponin I < 0.01 L (0.01-0.04) ng/mL NT-Pro-B Natriuret Pep 47 (0-125) PG/mL Salicylates < 1.0 L (1.0-10) mg/dL Acetaminophen < 10.0 L (10.0-30.0) ug/mL Ethyl Alcohol < 0.01 L (0.01-0.03) % SARS-CoV-2 (PCR) Negative SARS-CoV-2 (Negative) Influenza Type A (PCR) Negative PCR FLU A (Negative) Influenza Type B (PCR) Negative PCR FLU B (Negative) RSV (PCR) Negative PCR RSV (Negative) 09/24/21 Range/Units 14:02 WBC (4.50-11.00) K/uL RBC (4.00-5.20) m/uL Hgb (12.0-16.0) gm/dL Hct (33.0-51.0) % MCV (80-100) fL MCH (26-34) pg MCHC (32-36) gm/dL RDW Coeff of Anat (11.5-15.5) % Plt Count (140-440) K/uL Neut % (Auto) (42.0-72.0) % Lymph % (Auto) (20-44) % Jefferson % (Auto) (0.0-11.0) % Eos % (Auto) (0.0-7.0) % Baso % (Auto) (0.0-3.0) % Neut # (Auto) (1.7-7.0) K/uL Lymph # (Auto) (0.90-2.90) K/uL Jefferson # (Auto) (0.00-0.90) K/UL Eos # (Auto) (0.00-0.50) K/uL Baso # (Auto) (0.00-0.30) K/uL Abs Immat Gran (auto) (0.00-0.30) K/uL ABG pH 7.41 (7.35-7.45) ABG pCO2 47 H (35-45) mmHG ABG pO2 86.7 (80-105) mmHG ABG HCO3 30 H (21-28) mmol/L ABG Total CO2 27 (21-30) mmol/l ABG O2 Saturation 97 (92-100) % ABG Base Excess 4.2 H (-3.0-3.0) mmol/L Sodium (135-149) mmol/L Potassium (3.6-5.1) mmol/L Chloride (96-114) mmol/L Carbon Dioxide (20-32) mmol/L BUN (7-30) mg/dL Creatinine (0.5-1.5) mg/dL Estimated Creat Clear Estimated GFR ml/min Glucose (60-115) mg/dL Calcium (8.4-10.6) mg/dL Troponin I (0.01-0.04) ng/mL NT-Pro-B Natriuret Pep (0-125) PG/mL Salicylates (1.0-10) mg/dL Acetaminophen (10.0-30.0) ug/mL Ethyl Alcohol (0.01-0.03) % SARS-CoV-2 (PCR) (Negative) Influenza Type A (PCR) (Negative) Influenza Type B (PCR) (Negative) RSV (PCR) (Negative) <Idris Gómez MD - Last Filed: 09/24/21 22:46> Lab Results 09/24/21 09/24/21 09/24/21 Range/Units 12:17 12:25 12:25 WBC 2.81 L (4.50-11.00) K/uL RBC 4.62 (4.00-5.20) m/uL Hgb 12.8 (12.0-16.0) gm/dL Hct 41.1 (33.0-51.0) % MCV 89 (80-100) fL MCH 28 (26-34) pg MCHC 31 L (32-36) gm/dL RDW Coeff of Anat 17.0 H (11.5-15.5) % Plt Count 124 L (140-440) K/uL Neut % (Auto) 68.6 (42.0-72.0) % Lymph % (Auto) 25.6 (20-44) % Jefferson % (Auto) 3.6 (0.0-11.0) % Eos % (Auto) 1.4 (0.0-7.0) % Baso % (Auto) 0.4 (0.0-3.0) % Neut # (Auto) 1.90 (1.7-7.0) K/uL Lymph # (Auto) 0.70 L (0.90-2.90) K/uL Jefferson # (Auto) 0.10 (0.00-0.90) K/UL Eos # (Auto) 0.00 (0.00-0.50) K/uL Baso # (Auto) 0.00 (0.00-0.30) K/uL Abs Immat Gran (auto) 0.01 (0.00-0.30) K/uL ABG pH (7.35-7.45) ABG pCO2 (35-45) mmHG ABG pO2 (80-105) mmHG ABG HCO3 (21-28) mmol/L ABG Total CO2 (21-30) mmol/l ABG O2 Saturation (92-100) % ABG Base Excess (-3.0-3.0) mmol/L Sodium 139 (135-149) mmol/L Potassium 4.0 (3.6-5.1) mmol/L Chloride 103 (96-114) mmol/L Carbon Dioxide 30 (20-32) mmol/L BUN 11 (7-30) mg/dL Creatinine 0.5 (0.5-1.5) mg/dL Estimated Creat Clear 109.01 Estimated GFR 108 ml/min Glucose 197 H (60-115) mg/dL Calcium 8.6 (8.4-10.6) mg/dL Troponin I < 0.01 L (0.01-0.04) ng/mL NT-Pro-B Natriuret Pep 47 (0-125) PG/mL Salicylates < 1.0 L (1.0-10) mg/dL Acetaminophen < 10.0 L (10.0-30.0) ug/mL Ethyl Alcohol < 0.01 L (0.01-0.03) % SARS-CoV-2 (PCR) Negative SARS-CoV-2 (Negative) Influenza Type A (PCR) Negative PCR FLU A (Negative) Influenza Type B (PCR) Negative PCR FLU B (Negative) RSV (PCR) Negative PCR RSV (Negative) 09/24/21 Range/Units 14:02 WBC (4.50-11.00) K/uL RBC (4.00-5.20) m/uL Hgb (12.0-16.0) gm/dL Hct (33.0-51.0) % MCV (80-100) fL MCH (26-34) pg MCHC (32-36) gm/dL RDW Coeff of Anat (11.5-15.5) % Plt Count (140-440) K/uL Neut % (Auto) (42.0-72.0) % Lymph % (Auto) (20-44) % Jefferson % (Auto) (0.0-11.0) % Eos % (Auto) (0.0-7.0) % Baso % (Auto) (0.0-3.0) % Neut # (Auto) (1.7-7.0) K/uL Lymph # (Auto) (0.90-2.90) K/uL Jefferson # (Auto) (0.00-0.90) K/UL Eos # (Auto) (0.00-0.50) K/uL Baso # (Auto) (0.00-0.30) K/uL Abs Immat Gran (auto) (0.00-0.30) K/uL ABG pH 7.41 (7.35-7.45) ABG pCO2 47 H (35-45) mmHG ABG pO2 86.7 (80-105) mmHG ABG HCO3 30 H (21-28) mmol/L ABG Total CO2 27 (21-30) mmol/l ABG O2 Saturation 97 (92-100) % ABG Base Excess 4.2 H (-3.0-3.0) mmol/L Sodium (135-149) mmol/L Potassium (3.6-5.1) mmol/L Chloride (96-114) mmol/L Carbon Dioxide (20-32) mmol/L BUN (7-30) mg/dL Creatinine (0.5-1.5) mg/dL Estimated Creat Clear Estimated GFR ml/min Glucose (60-115) mg/dL Calcium (8.4-10.6) mg/dL Troponin I (0.01-0.04) ng/mL NT-Pro-B Natriuret Pep (0-125) PG/mL Salicylates (1.0-10) mg/dL Acetaminophen (10.0-30.0) ug/mL Ethyl Alcohol (0.01-0.03) % SARS-CoV-2 (PCR) (Negative) Influenza Type A (PCR) (Negative) Influenza Type B (PCR) (Negative) RSV (PCR) (Negative) <Syed Frye MD - Last Filed: 10/01/21 22:43> Lab Results 09/24/21 09/24/21 09/24/21 Range/Units 12:17 12:25 12:25 WBC 2.81 L (4.50-11.00) K/uL RBC 4.62 (4.00-5.20) m/uL Hgb 12.8 (12.0-16.0) gm/dL Hct 41.1 (33.0-51.0) % MCV 89 (80-100) fL MCH 28 (26-34) pg MCHC 31 L (32-36) gm/dL RDW Coeff of Anat 17.0 H (11.5-15.5) % Plt Count 124 L (140-440) K/uL Neut % (Auto) 68.6 (42.0-72.0) % Lymph % (Auto) 25.6 (20-44) % Jefferson % (Auto) 3.6 (0.0-11.0) % Eos % (Auto) 1.4 (0.0-7.0) % Baso % (Auto) 0.4 (0.0-3.0) % Neut # (Auto) 1.90 (1.7-7.0) K/uL Lymph # (Auto) 0.70 L (0.90-2.90) K/uL Jefferson # (Auto) 0.10 (0.00-0.90) K/UL Eos # (Auto) 0.00 (0.00-0.50) K/uL Baso # (Auto) 0.00 (0.00-0.30) K/uL Abs Immat Gran (auto) 0.01 (0.00-0.30) K/uL ABG pH (7.35-7.45) ABG pCO2 (35-45) mmHG ABG pO2 (80-105) mmHG ABG HCO3 (21-28) mmol/L ABG Total CO2 (21-30) mmol/l ABG O2 Saturation (92-100) % ABG Base Excess (-3.0-3.0) mmol/L Sodium 139 (135-149) mmol/L Potassium 4.0 (3.6-5.1) mmol/L Chloride 103 (96-114) mmol/L Carbon Dioxide 30 (20-32) mmol/L BUN 11 (7-30) mg/dL Creatinine 0.5 (0.5-1.5) mg/dL Estimated Creat Clear 109.01 Estimated GFR 108 ml/min Glucose 197 H (60-115) mg/dL Calcium 8.6 (8.4-10.6) mg/dL Troponin I < 0.01 L (0.01-0.04) ng/mL NT-Pro-B Natriuret Pep 47 (0-125) PG/mL Salicylates < 1.0 L (1.0-10) mg/dL Acetaminophen < 10.0 L (10.0-30.0) ug/mL Ethyl Alcohol < 0.01 L (0.01-0.03) % SARS-CoV-2 (PCR) Negative SARS-CoV-2 (Negative) Influenza Type A (PCR) Negative PCR FLU A (Negative) Influenza Type B (PCR) Negative PCR FLU B (Negative) RSV (PCR) Negative PCR RSV (Negative) 09/24/21 Range/Units 14:02 WBC (4.50-11.00) K/uL RBC (4.00-5.20) m/uL Hgb (12.0-16.0) gm/dL Hct (33.0-51.0) % MCV (80-100) fL MCH (26-34) pg MCHC (32-36) gm/dL RDW Coeff of Anat (11.5-15.5) % Plt Count (140-440) K/uL Neut % (Auto) (42.0-72.0) % Lymph % (Auto) (20-44) % Jefferson % (Auto) (0.0-11.0) % Eos % (Auto) (0.0-7.0) % Baso % (Auto) (0.0-3.0) % Neut # (Auto) (1.7-7.0) K/uL Lymph # (Auto) (0.90-2.90) K/uL Jefferson # (Auto) (0.00-0.90) K/UL Eos # (Auto) (0.00-0.50) K/uL Baso # (Auto) (0.00-0.30) K/uL Abs Immat Gran (auto) (0.00-0.30) K/uL ABG pH 7.41 (7.35-7.45) ABG pCO2 47 H (35-45) mmHG ABG pO2 86.7 (80-105) mmHG ABG HCO3 30 H (21-28) mmol/L ABG Total CO2 27 (21-30) mmol/l ABG O2 Saturation 97 (92-100) % ABG Base Excess 4.2 H (-3.0-3.0) mmol/L Sodium (135-149) mmol/L Potassium (3.6-5.1) mmol/L Chloride (96-114) mmol/L Carbon Dioxide (20-32) mmol/L BUN (7-30) mg/dL Creatinine (0.5-1.5) mg/dL Estimated Creat Clear Estimated GFR ml/min Glucose (60-115) mg/dL Calcium (8.4-10.6) mg/dL Troponin I (0.01-0.04) ng/mL NT-Pro-B Natriuret Pep (0-125) PG/mL Salicylates (1.0-10) mg/dL Acetaminophen (10.0-30.0) ug/mL Ethyl Alcohol (0.01-0.03) % SARS-CoV-2 (PCR) (Negative) Influenza Type A (PCR) (Negative) Influenza Type B (PCR) (Negative) RSV (PCR) (Negative) <Andrei Wong MD - Last Filed: 09/25/21 14:17> ECG Data Attestation: I personally reviewed and interpreted this ECG as follows: <Jaylen Wu MD - Last Filed: 09/24/21 16:01> ECG interpretation date: 09/24/21 <Jaylen Wu MD - Last Filed: 09/24/21 16:01> ECG interpretation time: 11:59 <Jaylen Wu MD - Last Filed: 09/24/21 16:01> Prior ECG tracings: not available for review <Jaylen Wu MD - Last Filed: 09/24/21 16:01> Interpretation: Normal sinus rhythm with a ventricular rate of 84, normal QTC and QTC baz: Assessment normal EKG <Jaylen Wu MD - Last Filed: 09/24/21 16:01> Discharge Plan Discharge Clinical Impression: Altered mental status <Jaylen Wu MD - Last Filed: 09/24/21 16:01> Patient Disposition: Home w/ Parent or Adult <Jaylen Wu MD - Last Filed: 09/24/21 16:01> Condition: Improved <Jaylen Wu MD - Last Filed: 09/24/21 16:01> Additional Instructions: Recheck with regular doctor within the next 2-3 days. Follow up per social Service recommendations <Jaylen Wu MD - Last Filed: 09/24/21 16:01> Activity Level: Light activity <Jaylen Wu MD - Last Filed: 09/24/21 16:01> Light activity <Idris Gómez MD - Last Filed: 09/24/21 22:46> Light activity <Syed Frye MD - Last Filed: 10/01/21 22:43> Light activity <Andrei Wong MD - Last Filed: 09/25/21 14:17> Discharge Diet: Regular <Jaylen Wu MD - Last Filed: 09/24/21 16:01> Regular <Idris Gómez MD - Last Filed: 09/24/21 22:46> Regular <Syed Frye MD - Last Filed: 10/01/21 22:43> Regular <Andrei Wong MD - Last Filed: 09/25/21 14:17> Prescriptions: No Action furosemide 40 mg tablet atorvastatin 40 mg tablet Label Comments: TAKE ONE TABLET BY MOUTH AT BEDTIME venlafaxine 75 mg capsule,extended release 24hr PO Label Comments: TAKE ONE CAPSULE BY MOUTH ONCE DAILY WITH A MEAL albuterol sulfate 2.5 mg /3 mL (0.083 %) solution for nebulization Label Comments: INHALE 3 ML (2.5 MG) VIA A NEBULIZER EVERY 4 HOURS IF NEEDED. ammonium lactate 12 % lotion TOPICAL Label Comments: APPLY TOPICALLY TO AFFECTED AREA(S) 2 TIMES DAILY. (DME) blood-glucose meter [Contour Next Meter] Misc MISCELLANEOUS Label Comments: DISPENSE METER, TEST STRIPS, LANCETS COVERED BY PT INS. E11.65 NIDDM TYPE II, UNCONTROLLED - TEST 3 TIMES/DAY, REASON: HYPOGLYCEMIA cetirizine 10 mg tablet Label Comments: TAKE 1 TABLET BY MOUTH ONCE DAILY glipizide 10 mg tablet extended release 24hr PO Label Comments: TAKE 1 TABLET BY MOUTH ONCE DAILY BEFORE A MEAL venlafaxine 150 mg capsule,extended release 24hr PO Label Comments: TAKE ONE CAPSULE BY MOUTH ONCE DAILY WITH A MEAL (DME) Contour Next Test Strips Strip MISCELLANEOUS Label Comments: TEST BLOOD SUGARS 3 TIMES PER DAY. baclofen 20 mg tablet Label Comments: TAKE 1 TABLET BY MOUTH THREE TIMES DAILY methotrexate sodium 2.5 mg tablet Label Comments: TAKE 10 TABLETS (25MG) BY MOUTH ONCE WEEKLY gabapentin 300 mg capsule folic acid 1 mg tablet Label Comments: TAKE 1 TABLET BY MOUTH ONCE DAILY montelukast 10 mg tablet Label Comments: TAKE 1 TABLET BY MOUTH ONCE DAILY AT BEDTIME nystatin [Nystop] 100,000 unit/gram powder TOPICAL Label Comments: APPLY 1 STRIP TOPICALLY TO AFFECTED AREA(S) 3 TIMES DAILY. fluticasone propionate 50 mcg/actuation spray,suspension INTRANASAL Label Comments: INSTILL 1 SPRAY INTO EACH NOSTRIL TWICE DAILY NEEDED glipizide 5 mg tablet Label Comments: TAKE ONE TABLET BY MOUTH ONCE DAILY BEFORE A MEAL risperidone 0.5 mg tablet Label Comments: TAKE 1 TABLET BY MOUTH ONCE DAILY IN THE AFTERNOON duloxetine 60 mg capsule,delayed release(DR/EC) PO Label Comments: TAKE 1 CAPSULE BY MOUTH TWICE DAILY Dulera 200-5 mcg/actuation HFA aerosol inhaler INHALATION Label Comments: INHALE 2 PUFFS BY MOUTH TWICE A DAY Farxiga 10 mg tablet <Jaylen Wu MD - Last Filed: 09/24/21 16:01> Follow Up/Referrals: Silvia Campos PA-C [Primary Care Provider] - <Jaylen Wu MD - Last Filed: 09/24/21 16:01> Stand Alone Forms: [facility] Info Instructions <Jaylen Wu MD - Last Filed: 09/24/21 16:01>
[2021-09-24 13:03] LABS: NT Pro B Type NatriureticPept* 47 PG/mL (0-125)
[2021-09-24 13:06] LABS: Troponin I* < 0.01 ng/mL (0.01-0.04)
[2021-09-24 13:12] LABS: PCR FLU A Negative PCR FLU A (Negative); PCR FLU B Negative PCR FLU B (Negative); PCR RSV Negative PCR RSV (Negative)
[2021-09-24 13:16] LABS: SARS PCR* Negative SARS-CoV-2 (Negative)
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
[2021-09-24 14:07] LABS: ABG PCO2 47 mmHG (35-45); Base Excess ABG 4.2 mmol/L (-3.0-3.0); HCO3 ABG 30 mmol/L (21-28); PO2 ABG 86.7 mmHG (80-105); TCO2 ABG 27 mmol/l (21-30); pH ABG 7.41 (7.35-7.45)
[2021-09-24 14:08] LABS: Oxygen Saturation ABG 97 % (92-100)
--- NOTE | 2021-09-24 15:24 | CRLHL7_ITS ---
For Patients: As a result of the Century Cures Act, medical imaging exams and procedure reports are released immediately into your electronic medical record. You may view this report before your referring provider. If you have questions, please contact your health care provider. INDICATION: Altered mental status. TECHNIQUE: CT head without contrast. COMPARISON: None. FINDINGS: CSF spaces: Within normal limits for age. Brain parenchyma and extra-axial spaces: The dale-white differentiation is normal. No sign of mass, hemorrhage, or midline shift. No extra-axial fluid collection. Skull base and calvarium: The visualized paranasal sinuses and mastoid air cells demonstrate no acute or significant findings. The visualized orbits are grossly unremarkable. No skull fractures. IMPRESSION: Unremarkable noncontrast head CT. Please note that all CT scans at this facility use dose modulation, iterative reconstruction, and/or weight-based dosing when appropriate to reduce radiation dose to as low as reasonably achievable. Dictated by Neeraj Carlos MD @ 09/25/2021 10:01:17 AM (Electronically Signed)
--- NOTE | 2021-09-24 20:15 | ED.NURSE ---
Pt weaned off supplemental O2, tolerating well.
--- NOTE | 2021-09-24 20:32 | ED.NURSE ---
Pt assisted out of bed, ambulated to the restroom with walker. Tolerated ambulation well. Pt changed into clean brief. Pt placed in recliner back in .
[2021-09-25] VITALS: BP 107/53
[2021-09-25 00:21] VITALS: PULSE 92; O2SAT 95
[2021-09-25 06:00] VITALS: BP 119/71; PULSE 90; RESP 16; O2SAT 94
[2021-09-25 08:00] VITALS: BP 127/73; PULSE 92; RESP 18; TEMP 36.6; O2SAT 95
--- NOTE | 2021-09-25 08:07 | ED.NURSE ---
pt sleeping flat in bed, arouses easily to voice. breakfast menu given to pt to order breakfast. pt c/o chronic pain in knees, easily falls back to sleep. O2/nc at 1.5 L
--- NOTE | 2021-09-25 09:03 | ED.NURSE ---
pt sitting up in bed eating breakfast
--- NOTE | 2021-09-25 09:14 | ED.NURSE ---
ANGELICA springer talking to pt.
--- NOTE | 2021-09-25 09:40 | ED.NURSE ---
pt up to bathroom with walker, slow walking but steady gait.
--- NOTE | 2021-09-25 09:59 | ED.NURSE ---
jagruti will pick pt up at 10:45 per marli springer. pt dressed, iv dc'd intact.
--- NOTE | 2021-09-25 10:14 | PC.SOCIAL ---
Social work: Met with pt regarding discharge plan. Pt states she wants to return to her apartment and is ready to leave now. Pt denies any assistance with discussing a higher level of care like an assisted living facility. Pt states there are people who have already recommended assisted living but she will nto go. Pt states that before [facility] closed, she was receiving homemaking assistance 4 hours a week and a shower aid twice a week. She states that with those services things were going well. Pt requested long term care social worker call her [facility] nursing home manager to ask for these services to be resumed. Called [facility] Calibration Tester, Meghan Ospina, , who confirmed that there was a lapse in services but that pt is now receiving skilled nurse services, shower aid and home making services through [facility]. Per Meghan, pt will be seen today by her home care nurse when she returns to her apartment. Pt states she does not have a ride home and requested this be arranged. metal casting trades worker called for a taxi to take pt home. Taxi will pick her up at 10:35am today. Called talent management manager, Rita, who states she will have staff bring pt's walker to the taxi when she arrives so that she can get back to her apartment safely. RN aware of the plan.
--- NOTE | 2021-09-25 11:07 | ED.NURSE ---
10:50 pt brought out to taxi via wheelchair.
--- NOTE | 2021-09-25 16:06 | PC.SOCIAL ---
When pt. discharged home she refused to allow home care into her home. Physician wrote a statement in support of emergency guardianship for pt. This was faxed over with pt.'s Ed visits to Deepthi Silva at [employer]. Left a message for Deepthi Silva that the information had been faxed.
== END 2021-09-25 11:07 | disposition home or self-care (01) ==
PROVIDERS: Family Medicine; Emergency Provider Family Medicine; PCP Physician Assistant Medical
DX: T40.711A Poisoning by cannabis, accidental (unintentional), initial encounter (principal); R41.82 Altered mental status, unspecified
CPT/HCPCS: 36415; 36600; 70450; 80048; 80143; 80179; 80306; 82077; 82803; 83880; 84484; 85025; 87502; 87634; 87635; 93005; 99285; A0425; A0427

== ENCOUNTER 2021-11-09 04:46 | Emergency (ER) | payer OTHER, SELFPAY ==
[2021-11-09 04:51] VITALS: BP 117/68; PULSE 106; RESP 22; TEMP 36.9; O2SAT 89; BMI 38.9
[2021-11-09 05:00] VITALS: BP 117/69; PULSE 108; RESP 20; O2SAT 89
--- NOTE | 2021-11-09 05:29 | CRLHL7_ITS ---
For Patients: As a result of the Century Cures Act, medical imaging exams and procedure reports are released immediately into your electronic medical record. You may view this report before your referring provider. If you have questions, please contact your health care provider. Indication: Shortness of breath Technique: Chest 1 view Comparison: December 20, 2013 Findings/Impression: Cardiovascular and mediastinum: Heart size and vasculature are normal in caliber and appearance. Mediastinum is within normal limits. Lungs and pleural space: Lungs are clear. No sign of infiltrate or mass. No sign of pleural effusion. No pneumothorax. Bones and soft tissues: No significant findings. Dictated by Tori Edmonds MD @ 11/09/2021 6:36:09 AM (Electronically Signed)
[2021-11-09 05:30] VITALS: BP 110/80; PULSE 100; RESP 20; O2SAT 88
--- NOTE | 2021-11-09 05:33 | ED.GENADULT ---
HPI - General Adult General Chief complaint: Unspecified Complaint, Adult Stated complaint: Shortness of Breath Time Seen by Provider: 11/09/21 05:11 History of Present Illness HPI narrative: 61-year-old woman brought to the emergency department via EMS from [facility]. Complaint is pain all over and ?my asthma is acting up ?. She did receive an albuterol nebulization EN route. Does admit that she feels she is doing well now from respiratory standpoint. Does have nebulizers at her residence. The breathing just started aggravating her tonight. She notes a long time history of rheumatoid arthritis and that really only prednisone is the thing that helps although she has received Dilaudid when pain is really severe. Seems to indicate that that is not where she is now. She says but they will not give it to me. I believe that some of these concerns would be related to sleep apnea. Left shoulder in particular has been bothering her. She has been discontinued off of methotrexate she says. She has not had any fever. No particular rash though I note on exam picking excoriations on the right forearm in particular. Otherwise just asking for some ice water noting herself to be rather thirsty, mouth dry. Does use CPAP. Apparently it is not working right. She is pending evaluation for it. Related Data Home Medications Medication Instructions Recorded Confirmed albuterol sulfate 2.5 mg/3 mL 2.5 mg inhalation Q4H PRN 08/15/21 11/09/21 (0.083 %) solution for nebulization ammonium lactate 12 % lotion 1 applic topical .2 times 08/15/21 11/09/21 atorvastatin 40 mg tablet 40 mg PO .bedtime 08/15/21 11/09/21 baclofen 20 mg tablet 20 mg PO TID 08/15/21 11/09/21 blood sugar diagnostic (Contour 08/15/21 08/15/21 Next Test Strips) blood-glucose meter (Contour Next 08/15/21 08/15/21 Meter) cetirizine 10 mg tablet 10 mg PO DAILY 08/15/21 11/09/21 dapagliflozin 10 mg tablet 10 mg PO DAILY 08/15/21 11/09/21 (Merged With [facility]) duloxetine 60 mg capsule,delayed 60 mg PO BID 08/15/21 11/09/21 release fluticasone propionate 50 1 spray intranasal BID PRN 08/15/21 11/09/21 mcg/actuation nasal spray,suspension folic acid 1 mg tablet 1 mg PO DAILY 08/15/21 11/09/21 furosemide 40 mg tablet 40 mg PO DAILY PRN swelling 08/15/21 11/09/21 gabapentin 300 mg capsule 900 mg PO TID 08/15/21 11/09/21 glipizide 10 mg tablet, extended 10 mg PO .once daily before me 08/15/21 11/09/21 release 24 hr glipizide 5 mg tablet 5 mg PO DAILY 08/15/21 11/09/21 methotrexate sodium 2.5 mg tablet 2.5 mg PO .once weekly 08/15/21 11/09/21 mometasone-formoterol HFA 200 2 puff inhalation BID 08/15/21 11/09/21 mcg-5 mcg/actuation aerosol inhaler (Dulera) montelukast 10 mg tablet 10 mg PO .daily at bedtime 08/15/21 11/09/21 nystatin 100,000 unit/gram topical 1 applic topical TID 08/15/21 11/09/21 powder (Nystop) risperidone 0.5 mg tablet 0.5 mg PO .daily in afternoon 08/15/21 11/09/21 venlafaxine 150 mg mg PO 08/15/21 capsule,extended release 24 hr venlafaxine 75 mg capsule,extended mg PO 08/15/21 release 24 hr aspirin 81 mg tablet,delayed mg 11/09/21 release cholecalciferol (vitamin D3) 50 50 mcg PO DAILY 11/09/21 11/09/21 mcg (2,000 unit) capsule diphenhydramine HCl 25 mg capsule 25 mg PO Q4H PRN 11/09/21 11/09/21 (Benadryl) hydrocortisone 2.5 % topical cream 1 applic topical BID 11/09/21 11/09/21 ibuprofen 600 mg tablet (IBU) 600 mg PO Q6H PRN 11/09/21 11/09/21 Allergies Allergy/AdvReac Type Severity Reaction Status Date / Time chlorpromazine Allergy seizure Verified 11/09/21 04:58 codeine Allergy Rash Verified 11/09/21 05:15 hydrocodone Allergy Unknown Verified 11/09/21 04:58 oxycodone Allergy Unknown Verified 11/09/21 04:58 Phenothiazines Allergy seizure Verified 11/09/21 04:58 etodolac Allergy rash Uncoded 08/15/21 06:11 morphine Allergy Unknown Uncoded 08/15/21 06:11 pregabalin Allergy Unknown Uncoded 08/15/21 06:11 Review of Systems Status of ROS: Reports: 6 or more systems reviewed and unremarkable except as noted in History and below [facility] Medical History Asthma Diabetes Rheumatoid arthritis Seizure Surgical History History of appendectomy Social History Smoking Status: Current every day smoker What tobacco products do you use: cigarettes Second hand tobacco smoke exposure: No How often do you have a drink containing alcohol: never AUDIT-C Alcohol total score: 0 Non-prescribed substance use: denies use and other Non-prescribed substance use details: cbd gummies Exam Narrative: Exam Narrative: By the time I am evaluating Ms. Dawkins she is more alert peers to be generally well. Is in no distress. Fully alert and oriented. Cranial nerves 2-12 intact. Head is atraumatic. Oropharynx is quite sticky and mostly edentulate. Lungs with generally diminished breath sounds. Trace crepitus throughout. Trace wheeze. Does not appear to be particularly labored in her breathing. Abdomen is obese soft nontender. Lower extremities are without edema. She has soreness in particular to movement of her left arm at the shoulder but able to accomplish without significant difficulty. Arthritic swelling in her hands. Skin is warm and dry with excoriations most noticeable over the right forearm. Const: Vital Signs, click to edit/add: Vital Signs - 24 hr 11/09/21 04:51 Temperature 98.5 F Pulse Rate [Left P ulse Oximeter] 106 H Respiratory Rate 22 Blood Pressure [Ri ght Upper Arm] 117/68 Pulse Oximetry 89 Oxygen Delivery Me thod Room Air Documenting provider has reviewed patient's vital signs: yes Course Course Hospital Course: Given a glass of ice water. Again she notes herself to be comfortable from a respiratory standpoint now. Reevaluation(s) Reevaluation #1: Has been sleeping. Satting 92%. Vital Signs Vital signs: Initial Vital Signs Temperature 98.5 F 11/09/21 04:51 Temperature Source Oral 11/09/21 04:51 Pulse Rate 106 H 11/09/21 04:51 Respiratory Rate 22 11/09/21 04:51 Blood Pressure 117/68 11/09/21 04:51 Blood Pressure Mean 84 11/09/21 04:51 Blood Pressure Position Supine 11/09/21 04:51 Pulse Oximetry 89 11/09/21 04:51 Oxygen Delivery Method 11/09/21 04:51 Vital Signs Temperature 98.5 F 11/09/21 04:51 Pulse Rate 106 H 11/09/21 04:51 Respiratory Rate 22 11/09/21 04:51 Blood Pressure 117/68 11/09/21 04:51 Pulse Oximetry 89 11/09/21 04:51 Oxygen Delivery Method 11/09/21 04:51 Temperature 98.5 F 11/09/21 04:51 Pulse Rate 93 11/09/21 06:30 Respiratory Rate 20 11/09/21 06:30 Blood Pressure 117/70 11/09/21 06:30 Pulse Oximetry 91 11/09/21 06:30 Oxygen Delivery Method 11/09/21 06:30 Medical Decision Making MDM Narrative Medical decision making narrative: In reviewing records it appears that Ms. Dawkins may be at baseline from a respiratory standpoint. I do not think though it is unreasonable to do a chest x-ray and monitor for a time here. Did review chest x-ray. Unremarkable. Radiology concurs Discharge Plan Discharge Clinical Impression: Asthma exacerbation, Rheumatoid arthritis flare Patient Disposition: Home, Self-Care Condition: Stable Additional Instructions: Take the prednisone as 40 mg on day 1 and 2, 30 mg on days 3 and 4, 20 mg on days 5 through 7, 10 mg and days 8 through 10. You do have extra pills here and you can taper this longer if necessary. Use your nebulizer 3 times daily over the next 3 days. Return for marked increase in persistent shortness of breath, chest pain, associated fever. Please do follow-up and get that CPAP problem sorted as soon as possible. Prednisone from [facility] Prescriptions: No Action furosemide 40 mg tablet 40 mg PO DAILY PRN (Reason: swelling) atorvastatin 40 mg tablet 40 mg PO .bedtime Label Comments: TAKE ONE TABLET BY MOUTH AT BEDTIME venlafaxine 75 mg capsule,extended release 24hr PO Label Comments: TAKE ONE CAPSULE BY MOUTH ONCE DAILY WITH A MEAL albuterol sulfate 2.5 mg /3 mL (0.083 %) solution for nebulization 2.5 mg inhalation Q4H PRN Label Comments: INHALE 3 ML (2.5 MG) VIA A NEBULIZER EVERY 4 HOURS IF NEEDED. ammonium lactate 12 % lotion 1 applic TOPICAL .2 times Label Comments: APPLY TOPICALLY TO AFFECTED AREA(S) 2 TIMES DAILY. Rx Instructions: NOT .2 TIMES DAILY. TWO TIMES DAILY!!!!!!!!!!!!!!!! (DME) blood-glucose meter [Contour Next Meter] Misc MISCELLANEOUS Label Comments: DISPENSE METER, TEST STRIPS, LANCETS COVERED BY PT INS. E11.65 NIDDM TYPE II, UNCONTROLLED - TEST 3 TIMES/DAY, REASON: HYPOGLYCEMIA cetirizine 10 mg tablet 10 mg PO DAILY Label Comments: TAKE 1 TABLET BY MOUTH ONCE DAILY glipizide 10 mg tablet extended release 24hr 10 mg PO .once daily before me Hold Instructions: Order Change Label Comments: TAKE 1 TABLET BY MOUTH ONCE DAILY BEFORE A MEAL venlafaxine 150 mg capsule,extended release 24hr PO Label Comments: TAKE ONE CAPSULE BY MOUTH ONCE DAILY WITH A MEAL (DME) Contour Next Test Strips Strip MISCELLANEOUS Label Comments: TEST BLOOD SUGARS 3 TIMES PER DAY. baclofen 20 mg tablet 20 mg PO TID Label Comments: TAKE 1 TABLET BY MOUTH THREE TIMES DAILY methotrexate sodium 2.5 mg tablet 2.5 mg PO .once weekly Label Comments: TAKE 10 TABLETS (25MG) BY MOUTH ONCE WEEKLY gabapentin 300 mg capsule 900 mg PO TID folic acid 1 mg tablet 1 mg PO DAILY Label Comments: TAKE 1 TABLET BY MOUTH ONCE DAILY montelukast 10 mg tablet 10 mg PO .daily at bedtime Label Comments: TAKE 1 TABLET BY MOUTH ONCE DAILY AT BEDTIME nystatin [Nystop] 100,000 unit/gram powder 1 applic TOPICAL TID Label Comments: APPLY 1 STRIP TOPICALLY TO AFFECTED AREA(S) 3 TIMES DAILY. fluticasone propionate 50 mcg/actuation spray,suspension 1 spray INTRANASAL BID PRN Label Comments: INSTILL 1 SPRAY INTO EACH NOSTRIL TWICE DAILY NEEDED glipizide 5 mg tablet 5 mg PO DAILY Label Comments: TAKE ONE TABLET BY MOUTH ONCE DAILY BEFORE A MEAL risperidone 0.5 mg tablet 0.5 mg PO .daily in afternoon Label Comments: TAKE 1 TABLET BY MOUTH ONCE DAILY IN THE AFTERNOON duloxetine 60 mg capsule,delayed release(DR/EC) 60 mg PO BID Label Comments: TAKE 1 CAPSULE BY MOUTH TWICE DAILY Dulera 200-5 mcg/actuation HFA aerosol inhaler 2 puff INHALATION BID Label Comments: INHALE 2 PUFFS BY MOUTH TWICE A DAY Farxiga 10 mg tablet 10 mg PO DAILY ibuprofen [IBU] 600 mg tablet 600 mg PO Q6H PRN diphenhydramine HCl [Benadryl] 25 mg capsule 25 mg PO Q4H PRN cholecalciferol (vitamin D3) 50 mcg (2,000 unit) capsule 50 mcg PO DAILY aspirin 81 mg tablet,delayed release (DR/EC) Label Comments: TAKE 1 TABLET BY MOUTH ONCE DAILY hydrocortisone 2.5 % cream 1 applic topical BID Follow Up/Referrals: Silvia Campos PA-C [Primary Care Provider] - Stand [facility]
[2021-11-09 06:00] VITALS: BP 118/70; PULSE 99; RESP 20; O2SAT 90
[2021-11-09 06:30] VITALS: BP 117/70; PULSE 93; RESP 20; O2SAT 91
== END 2021-11-09 07:22 | disposition home or self-care (01) ==
PROVIDERS: Emergency Provider Family Medicine; PCP Physician Assistant Medical
DX: J45.901 Unspecified asthma with (acute) exacerbation (principal); M06.9 Rheumatoid arthritis, unspecified
CPT/HCPCS: 71045; 99283; 99284; A0425; A0427

== ENCOUNTER 2021-12-20 12:27 | Emergency (ER) | payer OTHER, SELFPAY ==
[2021-12-20 12:36] VITALS: BP 103/52; PULSE 91; RESP 20; TEMP 36.2; O2SAT 91; BMI 38.9
[2021-12-20 13:00] VITALS: PULSE 95; O2SAT 91
[2021-12-20 13:30] VITALS: BP 120/65
--- NOTE | 2021-12-20 13:30 | ED_ITS ---
HPI - General Adult General Chief complaint: Extremity Pain/Injury, Lower Stated complaint: RA pain Time Seen by Provider: 12/20/21 12:50 History of Present Illness HPI narrative: 61-year-old woman presenting to the emergency department with longstanding history of rheumatoid arthritis. She apparently made statements also to her boyfriend that maybe she should just kill herself. She denies that she is feeling suicidal. Just the pain has gotten bad lately. Has been flaring for a couple of weeks at least. It has been a long time she says since been a steroid medication. She did miss her follow-up with Rheumatology due to transportation falling through and then another appointment that she had made apparently was canceled due to family issue with her provider. She is pending at soon a right knee replacement and a left shoulder surgery this January as well. She has pain in these locations as well as other joints specifically her hands and wrists which she would anticipate swelling further. She does try treating with ibuprofen which is does not enough. Historically quite nauseated and rashes on opiates. With further questioning she does acknowledge that Dilaudid is tolerated. Her patient clerical assistant apparently had called in a prescription of 10 mg dosing for 5 days or so and she knows that this will not be sufficient. She feels that steroids are the thing that would make a big difference for her. She has not had any fever. It has been no new trauma. She does note though that her right leg can give out on her presumably secondary to pain/arthritis. Related Data Home Medications Medication Instructions Recorded Confirmed albuterol sulfate 2.5 mg/3 mL 2.5 mg inhalation Q4H PRN 08/15/21 12/20/21 (0.083 %) solution for nebulization ammonium lactate 12 % lotion 1 applic topical .2 times 08/15/21 12/20/21 atorvastatin 40 mg tablet 40 mg PO .bedtime 08/15/21 12/20/21 baclofen 20 mg tablet 20 mg PO TID 08/15/21 12/20/21 blood sugar diagnostic (Contour 08/15/21 08/15/21 Next Test Strips) blood-glucose meter (Contour Next 08/15/21 08/15/21 Meter) duloxetine 60 mg capsule,delayed 60 mg PO BID 08/15/21 12/20/21 release fluticasone propionate 50 1 spray intranasal BID PRN 08/15/21 12/20/21 mcg/actuation nasal spray,suspension folic acid 1 mg tablet 1 mg PO DAILY 08/15/21 12/20/21 furosemide 40 mg tablet 40 mg PO DAILY PRN swelling 08/15/21 12/20/21 gabapentin 300 mg capsule 900 mg PO TID 08/15/21 12/20/21 glipizide 10 mg tablet, extended 10 mg PO .once daily before me 08/15/21 12/20/21 release 24 hr glipizide 5 mg tablet 5 mg PO DAILY 08/15/21 12/20/21 methotrexate sodium 2.5 mg tablet 2.5 mg PO .once weekly 08/15/21 11/09/21 mometasone-formoterol HFA 200 2 puff inhalation BID 08/15/21 12/20/21 mcg-5 mcg/actuation aerosol inhaler (Dulera) montelukast 10 mg tablet 10 mg PO .daily at bedtime 08/15/21 12/20/21 nystatin 100,000 unit/gram topical 1 applic topical TID 08/15/21 11/09/21 powder (Nystop) risperidone 0.5 mg tablet 0.5 mg PO .daily in afternoon 08/15/21 12/20/21 venlafaxine 150 mg 150 mg PO 08/15/21 capsule,extended release 24 hr venlafaxine 75 mg capsule,extended 75 mg PO 08/15/21 release 24 hr aspirin 81 mg tablet,delayed 81 mg PO DAILY 11/09/21 12/20/21 release cholecalciferol (vitamin D3) 50 50 mcg PO DAILY 11/09/21 12/20/21 mcg (2,000 unit) capsule diphenhydramine HCl 25 mg capsule 25 mg PO Q4H PRN 11/09/21 12/20/21 (Benadryl) hydrocortisone 2.5 % topical cream 1 applic topical BID 11/09/21 12/20/21 ibuprofen 600 mg tablet (IBU) 600 mg PO Q6H PRN 11/09/21 12/20/21 Previous Rx's Medication Instructions Recorded hydromorphone 2 mg tablet 2 mg PO Q6H Severe pain #6 tabs 12/20/21 (Dilaudid) Allergies Allergy/AdvReac Type Severity Reaction Status Date / Time chlorpromazine Allergy seizure Verified 11/09/21 04:58 codeine Allergy Rash Verified 11/09/21 05:15 hydrocodone Allergy Unknown Verified 11/09/21 04:58 oxycodone Allergy Unknown Verified 11/09/21 04:58 Phenothiazines Allergy seizure Verified 11/09/21 04:58 etodolac Allergy rash Uncoded 08/15/21 06:11 morphine Allergy Unknown Uncoded 08/15/21 06:11 pregabalin Allergy Unknown Uncoded 08/15/21 06:11 Review of Systems Status of ROS: Reports: 6 or more systems reviewed and unremarkable except as noted in History and below [facility] Medical History Asthma Diabetes Rheumatoid arthritis Seizure Surgical History History of appendectomy Social History Smoking Status: Current every day smoker What tobacco products do you use: cigarettes Second hand tobacco smoke exposure: No How often do you have a drink containing alcohol: never How often do you have six or more drinks on one occasion: Never AUDIT-C Alcohol total score: 0 Non-prescribed substance use: denies use and other Non-prescribed substance use details: cbd gummies Exam Narrative: Exam Narrative: pleasant. calm, nad. breathing easily and lungs are clear. edentulous. skin is warm and dry. fullness of wrist and fingers bilaterally, especially left 3rd pip. no erythema or calor. both knees appear to have small effusion. minimal dependent ankle edema mildly restricted to movement of the shoulders, more-so her left. Const: Vital Signs, click to edit/add: Vital Signs - 24 hr 12/20/21 12:36 Temperature 97.1 F L Pulse Rate [Right Pulse Oximeter] 91 Respiratory Rate 20 Blood Pressure [Ri ght Upper Arm] 103/52 L Pulse Oximetry 91 Oxygen Delivery Me thod Room Air Documenting provider has reviewed patient's vital signs: yes Course Course Hospital Course: repeat blood pressures improved Vital Signs Vital signs: Initial Vital Signs Temperature 97.1 F L 12/20/21 12:36 Temperature Source Temporal Artery Scan 12/20/21 12:36 Pulse Rate 91 12/20/21 12:36 Respiratory Rate 20 12/20/21 12:36 Blood Pressure 103/52 L 12/20/21 12:36 Blood Pressure Mean 69 12/20/21 12:36 Pulse Oximetry 91 12/20/21 12:36 Oxygen Delivery Method 12/20/21 12:36 Vital Signs Temperature 97.1 F L 12/20/21 12:36 Pulse Rate 91 12/20/21 12:36 Respiratory Rate 20 12/20/21 12:36 Blood Pressure 103/52 L 12/20/21 12:36 Pulse Oximetry 91 12/20/21 12:36 Oxygen Delivery Method 12/20/21 12:36 Temperature 97.1 F L 12/20/21 12:36 Pulse Rate 95 12/20/21 13:00 Respiratory Rate 20 12/20/21 12:36 Blood Pressure 120/65 12/20/21 13:30 Pulse Oximetry 91 12/20/21 13:00 Oxygen Delivery Method 12/20/21 13:00 Medical Decision Making MDM Narrative Medical decision making narrative: She feels confident that prednisone course will likely help pain. If really needed as prednisone taking effect, will have available a small quantity hydromorphone available at pharmacy. Discharge Plan Discharge Clinical Impression: Arthralgia, Rheumatoid arthritis flare Patient Disposition: Home w/ Parent or Adult Condition: Stable Additional Instructions: Continue to focus on hydration. Do make that follow-up appointment with Rheumatology so that you can talk with them about controlling medications. If you're feeling more down like you might hurt yourself, and after talking to people close to you, still feeling this way, please return to the emergency department From [facility] take the prednisone as 40 mg daily for 3 days, 30 mg daily for 3 days, 20 mg daily for 3 days, 10 mg daily for 3 days Prescriptions: New hydromorphone [Dilaudid] 2 mg tablet 2 mg PO Q6H Qty: 6 0RF No Action furosemide 40 mg tablet 40 mg PO DAILY PRN (Reason: swelling) atorvastatin 40 mg tablet 40 mg PO .bedtime Label Comments: TAKE ONE TABLET BY MOUTH AT BEDTIME venlafaxine 75 mg capsule,extended release 24hr 75 mg PO Label Comments: TAKE ONE CAPSULE BY MOUTH ONCE DAILY WITH A MEAL albuterol sulfate 2.5 mg /3 mL (0.083 %) solution for nebulization 2.5 mg inhalation Q4H PRN Label Comments: INHALE 3 ML (2.5 MG) VIA A NEBULIZER EVERY 4 HOURS IF NEEDED. ammonium lactate 12 % lotion 1 applic TOPICAL .2 times Label Comments: APPLY TOPICALLY TO AFFECTED AREA(S) 2 TIMES DAILY. Rx Instructions: NOT .2 TIMES DAILY. TWO TIMES DAILY!!!!!!!!!!!!!!!! (DME) blood-glucose meter [Contour Next Meter] Misc MISCELLANEOUS Label Comments: DISPENSE METER, TEST STRIPS, LANCETS COVERED BY PT INS. E11.65 NIDDM TYPE II, UNCONTROLLED - TEST 3 TIMES/DAY, REASON: HYPOGLYCEMIA glipizide 10 mg tablet extended release 24hr 10 mg PO .once daily before me Hold Instructions: Order Change Label Comments: TAKE 1 TABLET BY MOUTH ONCE DAILY BEFORE A MEAL venlafaxine 150 mg capsule,extended release 24hr 150 mg PO Label Comments: TAKE ONE CAPSULE BY MOUTH ONCE DAILY WITH A MEAL (DME) Contour Next Test Strips Strip MISCELLANEOUS Label Comments: TEST BLOOD SUGARS 3 TIMES PER DAY. baclofen 20 mg tablet 20 mg PO TID Label Comments: TAKE 1 TABLET BY MOUTH THREE TIMES DAILY methotrexate sodium 2.5 mg tablet 2.5 mg PO .once weekly Label Comments: TAKE 10 TABLETS (25MG) BY MOUTH ONCE WEEKLY gabapentin 300 mg capsule 900 mg PO TID folic acid 1 mg tablet 1 mg PO DAILY Label Comments: TAKE 1 TABLET BY MOUTH ONCE DAILY montelukast 10 mg tablet 10 mg PO .daily at bedtime Label Comments: TAKE 1 TABLET BY MOUTH ONCE DAILY AT BEDTIME nystatin [Nystop] 100,000 unit/gram powder 1 applic TOPICAL TID Label Comments: APPLY 1 STRIP TOPICALLY TO AFFECTED AREA(S) 3 TIMES DAILY. fluticasone propionate 50 mcg/actuation spray,suspension 1 spray INTRANASAL BID PRN Label Comments: INSTILL 1 SPRAY INTO EACH NOSTRIL TWICE DAILY NEEDED glipizide 5 mg tablet 5 mg PO DAILY Label Comments: TAKE ONE TABLET BY MOUTH ONCE DAILY BEFORE A MEAL risperidone 0.5 mg tablet 0.5 mg PO .daily in afternoon Label Comments: TAKE 1 TABLET BY MOUTH ONCE DAILY IN THE AFTERNOON duloxetine 60 mg capsule,delayed release(DR/EC) 60 mg PO BID Label Comments: TAKE 1 CAPSULE BY MOUTH TWICE DAILY Dulera 200-5 mcg/actuation HFA aerosol inhaler 2 puff INHALATION BID Label Comments: INHALE 2 PUFFS BY MOUTH TWICE A DAY ibuprofen [IBU] 600 mg tablet 600 mg PO Q6H PRN diphenhydramine HCl [Benadryl] 25 mg capsule 25 mg PO Q4H PRN cholecalciferol (vitamin D3) 50 mcg (2,000 unit) capsule 50 mcg PO DAILY aspirin 81 mg tablet,delayed release (DR/EC) 81 mg PO DAILY Label Comments: TAKE 1 TABLET BY MOUTH ONCE DAILY hydrocortisone 2.5 % cream 1 applic topical BID Follow Up/Referrals: Silvia Campos PA-C [Referring] - Stand Alone Forms: [facility] Info Instructions
== END 2021-12-20 13:44 | disposition home or self-care (01) ==
LOC: ED 13:29
PROVIDERS: Emergency Provider Family Medicine; PCP Family Medicine
DX: M06.9 Rheumatoid arthritis, unspecified (principal)
CPT/HCPCS: 99283; 99284; A0425; A0427

== ENCOUNTER 2022-01-26 18:28 | Emergency (ER) | payer OTHER, SELFPAY ==
[2022-01-26 18:33] VITALS: BP 113/67; PULSE 118; RESP 18; TEMP 35.9; O2SAT 92; BMI 39.3
--- NOTE | 2022-01-26 18:53 | CRLHL7_ITS ---
For Patients: As a result of the Cures Act, medical imaging exams and procedure reports are released immediately into your electronic medical record. You may view this report before your referring provider. If you have questions, please contact your health care provider. INDICATION: Fall. TECHNIQUE: Three views of the sacrum/coccyx. COMPARISON: None. FINDINGS: No dislocation or displaced fracture. The sacroiliac joints are intact bilaterally. The bilateral hip joint spaces appear relatively maintained. Intact pubic symphysis. IMPRESSION: Sacrum without displaced fracture. Dictated by Ignacio Edmonds MD @ 01/26/2022 7:28:50 PM Dictated by: Ignacio Edmonds MD @ 01/26/2022 19:28:56 (Electronically Signed)
--- NOTE | 2022-01-26 18:55 | ED.BACK ---
HPI - Back Pain/Injury General Chief Complaint: Back Injury/Pain Stated Complaint: Lower Back Injury / Hurt Tailbone - from fall Time Seen by Provider: 01/26/22 18:31 History of Present Illness HPI Narrative: This 61-year-old female comes in with an injury to her tailbone. She states that she fell 4 days ago. She was using a walker and tripped backwards over a step landing on her tailbone. She does not report any other injury. She did not hit her head or have loss of consciousness. She is able to sit but states that if she sits back the pain is unbearable. Related Data Home Medications Medication Instructions Recorded Confirmed albuterol sulfate 2.5 mg/3 mL 2.5 mg inhalation Q4H PRN 08/15/21 01/26/22 (0.083 %) solution for nebulization ammonium lactate 12 % lotion 1 applic topical .2 times 08/15/21 01/26/22 atorvastatin 40 mg tablet 40 mg PO .bedtime 08/15/21 01/26/22 baclofen 20 mg tablet 20 mg PO TID 08/15/21 01/26/22 blood sugar diagnostic (Contour 08/15/21 08/15/21 Next Test Strips) blood-glucose meter (Contour Next 08/15/21 08/15/21 Meter) duloxetine 60 mg capsule,delayed 60 mg PO BID 08/15/21 01/26/22 release fluticasone propionate 50 1 spray intranasal BID PRN 08/15/21 01/26/22 mcg/actuation nasal spray,suspension folic acid 1 mg tablet 1 mg PO DAILY 08/15/21 01/26/22 furosemide 40 mg tablet 40 mg PO DAILY PRN swelling 08/15/21 01/26/22 gabapentin 300 mg capsule 900 mg PO TID 08/15/21 01/26/22 glipizide 10 mg tablet, extended 10 mg PO .once daily before me 08/15/21 01/26/22 release 24 hr glipizide 5 mg tablet 5 mg PO DAILY 08/15/21 01/26/22 methotrexate sodium 2.5 mg tablet 2.5 mg PO .once weekly 08/15/21 01/26/22 mometasone-formoterol HFA 200 2 puff inhalation BID 08/15/21 01/26/22 mcg-5 mcg/actuation aerosol inhaler (Dulera) montelukast 10 mg tablet 10 mg PO .daily at bedtime 08/15/21 01/26/22 nystatin 100,000 unit/gram topical 1 applic topical TID 08/15/21 01/26/22 powder (Nystop) risperidone 0.5 mg tablet 0.5 mg PO .daily in afternoon 08/15/21 01/26/22 venlafaxine 150 mg 150 mg PO DAILY 08/15/21 01/26/22 capsule,extended release 24 hr venlafaxine 75 mg capsule,extended 75 mg PO DAILY 08/15/21 01/26/22 release 24 hr aspirin 81 mg tablet,delayed 81 mg PO DAILY 11/09/21 01/26/22 release cholecalciferol (vitamin D3) 50 50 mcg PO DAILY 11/09/21 12/20/21 mcg (2,000 unit) capsule diphenhydramine HCl 25 mg capsule 25 mg PO Q4H PRN 11/09/21 01/26/22 (Benadryl) hydrocortisone 2.5 % topical cream 1 applic topical BID 11/09/21 01/26/22 ibuprofen 600 mg tablet (IBU) 600 mg PO Q6H PRN 11/09/21 01/26/22 Previous Rx's Medication Instructions Recorded hydromorphone 2 mg tablet 2 mg PO Q6H Severe pain #6 tabs 12/20/21 (Dilaudid) Allergies Allergy/AdvReac Type Severity Reaction Status Date / Time chlorpromazine Allergy seizure Verified 01/26/22 18:39 codeine Allergy Rash Verified 01/26/22 18:39 hydrocodone Allergy Unknown Verified 01/26/22 18:39 oxycodone Allergy Unknown Verified 01/26/22 18:39 Phenothiazines Allergy seizure Verified 01/26/22 18:39 etodolac Allergy rash Uncoded 08/15/21 06:11 morphine Allergy Unknown Uncoded 08/15/21 06:11 pregabalin Allergy Unknown Uncoded 08/15/21 06:11 Review of Systems Status of ROS: Reports: 10 or more systems reviewed and unremarkable except as noted in History and below Narrative: Constitutional: No fevers, no weight gain or loss. Eyes: No discharge. No vision changes. HENT: No congestion, no sore throat, no ear pain. Cardiovascular: No chest pain, no palpitations. Respiratory: She reports asthma symptoms. Gastrointestinal: No abdominal pain, no vomiting, no diarrhea. Genitourinary: No dysuria, no hematuria. Musculoskeletal: Normal range of motion. Skin: No rashes, no pruritis. Neurological: No dizziness, weakness, sensory change, speech change. Endo/Heme/Allergies: No bruising or bleeding. No polydipsia. Pysch: no suicidality, no anxiety, no insomnia. All other systems reviewed and are negative. [facility] Medical History Asthma Diabetes Rheumatoid arthritis Seizure Surgical History History of appendectomy Social History Smoking Status: Current every day smoker What tobacco products do you use: cigarettes Second hand tobacco smoke exposure: No How often do you have a drink containing alcohol: never How often do you have six or more drinks on one occasion: Never AUDIT-C Alcohol total score: 0 Non-prescribed substance use: denies use and other Non-prescribed substance use details: [facility] service: No Exam Narrative: Exam Narrative: Constitutional: Well-developed, well-nourished, no acute distress. HEENT: Normocephalic, atraumatic. Neck: Normal range of motion. Nontender. Supple. Heart: Intact distal pulses. Lungs: No chest discomfort. No wheezes, rhonchi, or rales. Abdomen: Nontender. Back: Normal range of motion. Pain in the sacrum and coccyx area. Extremities: Normal range of motion. No injury. Skin: Intact. No rash. Warm. No erythema or pallor. Neurologic: No altered sensation. No weakness. Alert and oriented. Psychiatric: No suicidality. No anxiety or depression. No insomnia. Nursing notes and vitals signs are reviewed. Const: Vital Signs, click to edit/add: Vital Signs - 24 hr 01/26/22 18:33 Temperature 96.7 F L Pulse Rate [Right Pulse Oximeter] 118 H Respiratory Rate 18 Blood Pressure [Ri ght Upper Arm] 113/67 Pulse Oximetry 92 Oxygen Delivery Me thod Room Air Course Vital Signs Vital signs: Initial Vital Signs Temperature 96.7 F L 01/26/22 18:33 Temperature Source Temporal Artery Scan 01/26/22 18:33 Pulse Rate 118 H 01/26/22 18:33 Respiratory Rate 18 01/26/22 18:33 Blood Pressure 113/67 01/26/22 18:33 Blood Pressure Mean 82 01/26/22 18:33 Blood Pressure Position Sitting 01/26/22 18:33 Pulse Oximetry 92 01/26/22 18:33 Oxygen Delivery Method 01/26/22 18:33 Vital Signs Temperature 96.7 F L 01/26/22 18:33 Pulse Rate 118 H 01/26/22 18:33 Respiratory Rate 18 01/26/22 18:33 Blood Pressure 113/67 01/26/22 18:33 Pulse Oximetry 92 01/26/22 18:33 Oxygen Delivery Method 01/26/22 18:33 Temperature 96.7 F L 01/26/22 18:33 Pulse Rate 118 H 01/26/22 18:33 Respiratory Rate 18 01/26/22 18:33 Blood Pressure 113/67 01/26/22 18:33 Pulse Oximetry 92 01/26/22 18:33 Oxygen Delivery Method 01/26/22 18:33 MDM - Back Pain/Injury MDM Narrative Medical decision making narrative: This patient comes in with injury to her tailbone from a fall that occurred 4 days ago. X-ray imaging shows no evidence of fracture. The patient is able to sit and ambulate but if she sits back to much it is too much pain for her. She did receive a prescription for Toradol. She states that she is taking prednisone currently and this helps her with regard to pain and her asthma symptoms. Imaging Data XR Coccyx Sacrum: Radiologist's impression: Sacrum without displaced fracture. Discharge Plan Discharge Clinical Impression: Coccygeal contusion Patient Disposition: Home, Self-Care Condition: Stable Additional Instructions: Take medication as needed and indicated. Follow up with MD or return if worsening. Prescriptions: No Action furosemide 40 mg tablet 40 mg PO DAILY PRN (Reason: swelling) atorvastatin 40 mg tablet 40 mg PO .bedtime Label Comments: TAKE ONE TABLET BY MOUTH AT BEDTIME venlafaxine 75 mg capsule,extended release 24hr 75 mg PO DAILY Label Comments: TAKE ONE CAPSULE BY MOUTH ONCE DAILY WITH A MEAL albuterol sulfate 2.5 mg /3 mL (0.083 %) solution for nebulization 2.5 mg inhalation Q4H PRN Label Comments: INHALE 3 ML (2.5 MG) VIA A NEBULIZER EVERY 4 HOURS IF NEEDED. ammonium lactate 12 % lotion 1 applic TOPICAL .2 times Label Comments: APPLY TOPICALLY TO AFFECTED AREA(S) 2 TIMES DAILY. Rx Instructions: NOT .2 TIMES DAILY. TWO TIMES DAILY!!!!!!!!!!!!!!!! (DME) blood-glucose meter [Contour Next Meter] Misc MISCELLANEOUS Label Comments: DISPENSE METER, TEST STRIPS, LANCETS COVERED BY PT INS. E11.65 NIDDM TYPE II, UNCONTROLLED - TEST 3 TIMES/DAY, REASON: HYPOGLYCEMIA glipizide 10 mg tablet extended release 24hr 10 mg PO .once daily before me Hold Instructions: Order Change Label Comments: TAKE 1 TABLET BY MOUTH ONCE DAILY BEFORE A MEAL venlafaxine 150 mg capsule,extended release 24hr 150 mg PO DAILY Label Comments: TAKE ONE CAPSULE BY MOUTH ONCE DAILY WITH A MEAL (DME) Contour Next Test Strips Strip MISCELLANEOUS Label Comments: TEST BLOOD SUGARS 3 TIMES PER DAY. baclofen 20 mg tablet 20 mg PO TID Label Comments: TAKE 1 TABLET BY MOUTH THREE TIMES DAILY methotrexate sodium 2.5 mg tablet 2.5 mg PO .once weekly Label Comments: TAKE 10 TABLETS (25MG) BY MOUTH ONCE WEEKLY gabapentin 300 mg capsule 900 mg PO TID folic acid 1 mg tablet 1 mg PO DAILY Label Comments: TAKE 1 TABLET BY MOUTH ONCE DAILY montelukast 10 mg tablet 10 mg PO .daily at bedtime Label Comments: TAKE 1 TABLET BY MOUTH ONCE DAILY AT BEDTIME nystatin [Nystop] 100,000 unit/gram powder 1 applic TOPICAL TID Label Comments: APPLY 1 STRIP TOPICALLY TO AFFECTED AREA(S) 3 TIMES DAILY. fluticasone propionate 50 mcg/actuation spray,suspension 1 spray INTRANASAL BID PRN Label Comments: INSTILL 1 SPRAY INTO EACH NOSTRIL TWICE DAILY NEEDED glipizide 5 mg tablet 5 mg PO DAILY Label Comments: TAKE ONE TABLET BY MOUTH ONCE DAILY BEFORE A MEAL risperidone 0.5 mg tablet 0.5 mg PO .daily in afternoon Label Comments: TAKE 1 TABLET BY MOUTH ONCE DAILY IN THE AFTERNOON duloxetine 60 mg capsule,delayed release(DR/EC) 60 mg PO BID Label Comments: TAKE 1 CAPSULE BY MOUTH TWICE DAILY Dulera 200-5 mcg/actuation HFA aerosol inhaler 2 puff INHALATION BID Label Comments: INHALE 2 PUFFS BY MOUTH TWICE A DAY ibuprofen [IBU] 600 mg tablet 600 mg PO Q6H PRN Hold Instructions: not taking but will in needed diphenhydramine HCl [Benadryl] 25 mg capsule 25 mg PO Q4H PRN cholecalciferol (vitamin D3) 50 mcg (2,000 unit) capsule 50 mcg PO DAILY aspirin 81 mg tablet,delayed release (DR/EC) 81 mg PO DAILY Label Comments: TAKE 1 TABLET BY MOUTH ONCE DAILY hydrocortisone 2.5 % cream 1 applic topical BID hydromorphone [Dilaudid] 2 mg tablet 2 mg PO Q6H Qty: 6 0RF Follow Up/Referrals: Jossy Henson MD [Primary Care Provider] - Stand Al[facility]
== END 2022-01-26 20:05 | disposition home or self-care (01) ==
PROVIDERS: Emergency Provider Emergency Medicine Emergency Medical Services; PCP Family Medicine
DX: S30.0XXA Contusion of lower back and pelvis, initial encounter (principal); W01.0XXA Fall on same level from slipping, tripping and stumbling without subsequent striking against object, initial encounter
CPT/HCPCS: 72220; 99283; 99284

== ENCOUNTER 2022-02-26 09:07 | Outpatient (RCR) | payer OTHER, SELFPAY | END 2022-06-06 11:23 | disposition home or self-care (01) | PROVIDERS: PCP Family Medicine; Visit Provider Family Medicine | DX: M17.11 Unilateral primary osteoarthritis, right knee (principal); M25.561 Pain in right knee; R26.9 Unspecified abnormalities of gait and mobility; Z51.89 Encounter for other specified aftercare | CPT/HCPCS: 97162 ==

== ENCOUNTER 2022-03-03 09:43 | Emergency (ER) | payer OTHER, SELFPAY ==
[2022-03-03 09:46] VITALS: BP 101/61; PULSE 110; RESP 18; TEMP 36.6; O2SAT 92
[2022-03-03] MEDS: HYDROmorphone 2 MG TABLET PO (10:52)
[2022-03-03] MEDS: predniSONE 20 MG TABLET 60 MG PO (10:52)
[2022-03-03 12:35] VITALS: BP 120/63; PULSE 109; RESP 20; O2SAT 91
--- NOTE | 2022-03-03 15:02 | ED_ITS ---
HPI - General Adult General Date Seen: 03/03/22 Chief complaint: Unspecified Complaint, Adult Stated complaint: RA exacerbation Time Seen by Provider: 03/03/22 10:15 Source: patient Mode of arrival: EMS Limitations: no limitations History of Present Illness HPI narrative: Patient is a 62-year-old woman who comes in by EMS saying that she has uncontrolled pain due to her rheumatoid arthritis. This is apparently her 2nd call to EMS today due to uncontrolled pain. She [address] She tells me that she has not been on steroids for a while now but that they are typically helpful for her. She also says that Dilaudid is helpful for her. She says that Toradol tends to make her out of it. She was sleeping when I entered the room and had to be roused. However, she says that she was not able to get around today, not able to get up due to pain in her hands, wrist, shoulder, and knee. Review of her records shows that we have seen her previously due to uncontrolled pain. She last had Dilaudid a number of months ago. She was on a prednisone taper at that same time. Does not look as if she has had anything since then. She denies any recent trauma, fevers, respiratory symptoms, or other complaints. Related Data Home Medications Medication Instructions Recorded Confirmed albuterol sulfate 2.5 mg/3 mL 2.5 mg inhalation Q4H PRN 08/15/21 01/26/22 (0.083 %) solution for nebulization ammonium lactate 12 % lotion 1 applic topical .2 times 08/15/21 01/26/22 atorvastatin 40 mg tablet 40 mg PO .bedtime 08/15/21 01/26/22 baclofen 20 mg tablet 20 mg PO TID 08/15/21 01/26/22 blood sugar diagnostic (Contour 08/15/21 08/15/21 Next Test Strips) blood-glucose meter (Contour Next 08/15/21 08/15/21 Meter) duloxetine 60 mg capsule,delayed 60 mg PO BID 08/15/21 01/26/22 release fluticasone propionate 50 1 spray intranasal BID PRN 08/15/21 01/26/22 mcg/actuation nasal spray,suspension folic acid 1 mg tablet 1 mg PO DAILY 08/15/21 01/26/22 furosemide 40 mg tablet 40 mg PO DAILY PRN swelling 08/15/21 01/26/22 gabapentin 300 mg capsule 900 mg PO TID 08/15/21 01/26/22 glipizide 10 mg tablet, extended 10 mg PO .once daily before me 08/15/21 01/26/22 release 24 hr glipizide 5 mg tablet 5 mg PO DAILY 08/15/21 01/26/22 methotrexate sodium 2.5 mg tablet 2.5 mg PO .once weekly 08/15/21 01/26/22 mometasone-formoterol HFA 200 2 puff inhalation BID 08/15/21 01/26/22 mcg-5 mcg/actuation aerosol inhaler (Dulera) montelukast 10 mg tablet 10 mg PO .daily at bedtime 08/15/21 01/26/22 nystatin 100,000 unit/gram topical 1 applic topical TID 08/15/21 01/26/22 powder (Nystop) risperidone 0.5 mg tablet 0.5 mg PO .daily in afternoon 08/15/21 01/26/22 venlafaxine 150 mg 150 mg PO DAILY 08/15/21 01/26/22 capsule,extended release 24 hr venlafaxine 75 mg capsule,extended 75 mg PO DAILY 08/15/21 01/26/22 release 24 hr aspirin 81 mg tablet,delayed 81 mg PO DAILY 11/09/21 01/26/22 release cholecalciferol (vitamin D3) 50 50 mcg PO DAILY 11/09/21 12/20/21 mcg (2,000 unit) capsule diphenhydramine HCl 25 mg capsule 25 mg PO Q4H PRN 11/09/21 01/26/22 (Benadryl) hydrocortisone 2.5 % topical cream 1 applic topical BID 11/09/21 01/26/22 ibuprofen 600 mg tablet (IBU) 600 mg PO Q6H PRN 11/09/21 01/26/22 Previous Rx's Medication Instructions Recorded hydromorphone 2 mg tablet 2 mg PO Q6H Severe pain #6 tabs 12/20/21 (Dilaudid) hydromorphone 2 mg tablet 2 mg PO Q6H PRN pain #7 tabs 03/03/22 (Dilaudid) prednisone 20 mg tablet See Rx Instructions .Route 03/03/22 .COMPLEX #24 tabs Allergies Allergy/AdvReac Type Severity Reaction Status Date / Time chlorpromazine Allergy seizure Verified 01/26/22 18:39 codeine Allergy Rash Verified 01/26/22 18:39 hydrocodone Allergy Unknown Verified 01/26/22 18:39 oxycodone Allergy Unknown Verified 01/26/22 18:39 Phenothiazines Allergy seizure Verified 01/26/22 18:39 etodolac Allergy rash Uncoded 08/15/21 06:11 morphine Allergy Unknown Uncoded 08/15/21 06:11 pregabalin Allergy Unknown Uncoded 08/15/21 06:11 Review of Systems Status of ROS: Reports: 6 or more systems reviewed and unremarkable except as noted in History and below [facility] Medical History Asthma Diabetes Rheumatoid arthritis Seizure Surgical History History of appendectomy Social History Smoking Status: Current every day smoker What tobacco products do you use: cigarettes Do you use any of these nicotine containing products: None Second hand tobacco smoke exposure: No How often do you have a drink containing alcohol: never How often do you have six or more drinks on one occasion: Never AUDIT-C Alcohol total score: 0 Non-prescribed substance use: denies use and other Non-prescribed substance use details: [employer] service: No Exam Narrative: Exam Narrative: Vital signs reviewed In general, as somnolent but easily arousable woman. Head: Normocephalic, atraumatic Neck: Supple. Heart: Regular rate and rhythm without murmur. Lungs: Occasional wheeze, no increased work of breathing. Extremities: No visible inflammatory arthritis, erythema, warmth, edema. She has the right knee in a brace. Skin: Warm dry, well perfused. Neurologic: She is easily arousable, conversant, moves all extremities. Falls asleep when no one is in the room. Const: Vital Signs, click to edit/add: Vital Signs - 24 hr 03/03/22 09:46 03/03/22 12:35 Temperature 97.9 F Pulse Rate [Right Pulse Oximeter] 110 H 109 H Respiratory Rate 18 20 Blood Pressure [Ri ght Upper Arm] 101/61 120/63 Pulse Oximetry 92 91 Oxygen Delivery Me thod Room Air Room Air Documenting provider has reviewed patient's vital signs: yes Course Course Hospital Course: I have reviewed her records, reviewed her prescription monitoring database. She is on gabapentin, but does not get frequent narcotics. In fact she lists allergies to all narcotics except for Dilaudid. Nonetheless, given that she does not use anything frequently, I am going to give her Dilaudid # 7 for use over the next day or 2. I am also putting her on a prednisone taper which appears to have worked for her well in the past I did give her 2 mg of oral Dilaudid here as well as 60 mg of prednisone so that she was able to be ambulatory and able to go home. I do not see anything else acute going on at this time. If she is not improving with these measures or has other concerns, follow up with primary care. Did advise her that any further acute pain management should come through primary care or her children librarian. Return to the emergency department for new symptoms such as fever, vomiting, etc.. Vital Signs Vital signs: Initial Vital Signs Temperature 97.9 F 03/03/22 09:46 Temperature Source Oral 03/03/22 09:46 Pulse Rate 110 H 03/03/22 09:46 Pulse Rhythm 03/03/22 09:46 Respiratory Rate 18 03/03/22 09:46 Blood Pressure 101/61 03/03/22 09:46 Blood Pressure Mean 74 03/03/22 09:46 Blood Pressure Position Supine 03/03/22 09:46 Pulse Oximetry 92 03/03/22 09:46 Oxygen Delivery Method 03/03/22 09:46 Vital Signs Temperature 97.9 F 03/03/22 09:46 Pulse Rate 110 H 03/03/22 09:46 Respiratory Rate 18 03/03/22 09:46 Blood Pressure 101/61 03/03/22 09:46 Pulse Oximetry 92 03/03/22 09:46 Oxygen Delivery Method 03/03/22 09:46 Temperature 97.9 F 03/03/22 09:46 Pulse Rate 109 H 03/03/22 12:35 Respiratory Rate 20 03/03/22 12:35 Blood Pressure 120/63 03/03/22 12:35 Pulse Oximetry 91 03/03/22 12:35 Oxygen Delivery Method 03/03/22 12:35 Discharge Plan Discharge Clinical Impression: Rheumatoid arthritis, Pain, chronic Patient Disposition: Home, Self-Care Condition: Improved Instructions: Chronic Pain (ED) Additional Instructions: Steroid taper as prescribed. Discuss further steroids with your children librarian. Small number of Dilaudid prescribed. Further pain medications should come from primary care or your children librarian. Prescriptions: New prednisone 20 mg tablet See Rx Instructions .ROUTE .COMPLEX Qty: 24 0RF Rx Instructions: Three tabs daily for 4 days, then 2 tabs daily for 4 days, then 1 tab daily for 4 days hydromorphone [Dilaudid] 2 mg tablet 2 mg PO Q6H PRN (Reason: pain) Qty: 7 0RF No Action furosemide 40 mg tablet 40 mg PO DAILY PRN (Reason: swelling) atorvastatin 40 mg tablet 40 mg PO .bedtime Label Comments: TAKE ONE TABLET BY MOUTH AT BEDTIME venlafaxine 75 mg capsule,extended release 24hr 75 mg PO DAILY Label Comments: TAKE ONE CAPSULE BY MOUTH ONCE DAILY WITH A MEAL albuterol sulfate 2.5 mg /3 mL (0.083 %) solution for nebulization 2.5 mg inhalation Q4H PRN Label Comments: INHALE 3 ML (2.5 MG) VIA A NEBULIZER EVERY 4 HOURS IF NEEDED. ammonium lactate 12 % lotion 1 applic TOPICAL .2 times Label Comments: APPLY TOPICALLY TO AFFECTED AREA(S) 2 TIMES DAILY. Rx Instructions: NOT .2 TIMES DAILY. TWO TIMES DAILY!!!!!!!!!!!!!!!! (DME) blood-glucose meter [Contour Next Meter] Misc MISCELLANEOUS Label Comments: DISPENSE METER, TEST STRIPS, LANCETS COVERED BY PT INS. E11.65 NIDDM TYPE II, UNCONTROLLED - TEST 3 TIMES/DAY, REASON: HYPOGLYCEMIA glipizide 10 mg tablet extended release 24hr 10 mg PO .once daily before me Hold Instructions: Order Change Label Comments: TAKE 1 TABLET BY MOUTH ONCE DAILY BEFORE A MEAL venlafaxine 150 mg capsule,extended release 24hr 150 mg PO DAILY Label Comments: TAKE ONE CAPSULE BY MOUTH ONCE DAILY WITH A MEAL (DME) Contour Next Test Strips Strip MISCELLANEOUS Label Comments: TEST BLOOD SUGARS 3 TIMES PER DAY. baclofen 20 mg tablet 20 mg PO TID Label Comments: TAKE 1 TABLET BY MOUTH THREE TIMES DAILY methotrexate sodium 2.5 mg tablet 2.5 mg PO .once weekly Label Comments: TAKE 10 TABLETS (25MG) BY MOUTH ONCE WEEKLY gabapentin 300 mg capsule 900 mg PO TID folic acid 1 mg tablet 1 mg PO DAILY Label Comments: TAKE 1 TABLET BY MOUTH ONCE DAILY montelukast 10 mg tablet 10 mg PO .daily at bedtime Label Comments: TAKE 1 TABLET BY MOUTH ONCE DAILY AT BEDTIME nystatin [Nystop] 100,000 unit/gram powder 1 applic TOPICAL TID Label Comments: APPLY 1 STRIP TOPICALLY TO AFFECTED AREA(S) 3 TIMES DAILY. fluticasone propionate 50 mcg/actuation spray,suspension 1 spray INTRANASAL BID PRN Label Comments: INSTILL 1 SPRAY INTO EACH NOSTRIL TWICE DAILY NEEDED glipizide 5 mg tablet 5 mg PO DAILY Label Comments: TAKE ONE TABLET BY MOUTH ONCE DAILY BEFORE A MEAL risperidone 0.5 mg tablet 0.5 mg PO .daily in afternoon Label Comments: TAKE 1 TABLET BY MOUTH ONCE DAILY IN THE AFTERNOON duloxetine 60 mg capsule,delayed release(DR/EC) 60 mg PO BID Label Comments: TAKE 1 CAPSULE BY MOUTH TWICE DAILY Dulera 200-5 mcg/actuation HFA aerosol inhaler 2 puff INHALATION BID Label Comments: INHALE 2 PUFFS BY MOUTH TWICE A DAY ibuprofen [IBU] 600 mg tablet 600 mg PO Q6H PRN Hold Instructions: not taking but will in needed diphenhydramine HCl [Benadryl] 25 mg capsule 25 mg PO Q4H PRN cholecalciferol (vitamin D3) 50 mcg (2,000 unit) capsule 50 mcg PO DAILY aspirin 81 mg tablet,delayed release (DR/EC) 81 mg PO DAILY Label Comments: TAKE 1 TABLET BY MOUTH ONCE DAILY hydrocortisone 2.5 % cream 1 applic topical BID hydromorphone [Dilaudid] 2 mg tablet 2 mg PO Q6H Qty: 6 0RF Follow Up/Referrals: Jossy Henson MD [Primary Care Provider] - Stand Alone Forms: [employer] Info Instructions
== END 2022-03-03 12:47 | disposition home or self-care (01) ==
PROVIDERS: Emergency Provider Emergency Medicine; PCP Family Medicine
DX: M06.9 Rheumatoid arthritis, unspecified (principal)
CPT/HCPCS: 99283; 99284; A0998; A9270; J7512

== ENCOUNTER 2022-04-01 16:29 | Outpatient (REF) | payer OTHER, SELFPAY ==
[2022-04-01 17:28] LABS: Mononuclear WBC Body Fluid* 22 %; Polynuclear WBC Body Fluid* 78 %; RBC, Body Fluid* 3000 Cells/uL; WBC, Body Fluid* 11354 Cells/uL
[2022-04-01 17:30] LABS: BF Clarity* Slightly Cloudy; BF Color Xanthochromic; BF Total Volume* 9
== END 2022-04-01 16:30 | disposition home or self-care (01) ==
LOC: LAB 16:29
PROVIDERS: PCP Family Medicine; Visit Provider Orthopaedic Surgery Sports Medicine
DX: M25.561 Pain in right knee (principal); M06.9 Rheumatoid arthritis, unspecified
CPT/HCPCS: 87070; 87075; 87186; 87205; 89051; 89060

== ENCOUNTER 2023-01-30 12:54 | Emergency (ER) | payer OTHER, SELFPAY ==
[2023-01-30 12:59] VITALS: BP 117/67; PULSE 106; RESP 18; TEMP 36.5; O2SAT 91; BMI 38.8
--- NOTE | 2023-01-30 14:07 | ED_ITS ---
HPI - General Adult General Chief complaint: Extremity Pain/Injury, Upper Stated complaint: Hand Injury Time Seen by Provider: 01/30/23 13:11 History of Present Illness HPI narrative: This 62-year-old female has history of rheumatoid arthritis and is taking methotrexate. She comes in reporting worsening pain in her right wrist but does not have any recent injury event or strenuous activity related to this. She states that the pain is keeping her awake at night and that she is unable to use her right hand. Related Data Home Medications Medication Instructions Recorded Confirmed albuterol sulfate 2.5 mg/3 mL 2.5 mg inhalation Q4H PRN 08/15/21 10/07/22 (0.083 %) solution for nebulization ammonium lactate 12 % lotion 1 applic topical .2 times 08/15/21 10/07/22 atorvastatin 40 mg tablet 40 mg PO .bedtime 08/15/21 10/07/22 baclofen 20 mg tablet 20 mg PO TID 08/15/21 10/07/22 blood sugar diagnostic (Contour 08/15/21 07/15/22 Next Test Strips) blood-glucose meter (Contour Next 08/15/21 07/15/22 Meter) duloxetine 60 mg capsule,delayed 60 mg PO BID 08/15/21 10/07/22 release fluticasone propionate 50 1 spray intranasal BID PRN 08/15/21 10/07/22 mcg/actuation nasal spray,suspension folic acid 1 mg tablet 1 mg PO DAILY 08/15/21 10/07/22 furosemide 40 mg tablet 40 mg PO DAILY PRN swelling 08/15/21 10/07/22 gabapentin 300 mg capsule 900 mg PO TID 08/15/21 10/07/22 glipizide 10 mg tablet, extended 10 mg PO .once daily before me 08/15/21 10/07/22 release 24 hr glipizide 5 mg tablet 5 mg PO DAILY 08/15/21 10/07/22 methotrexate sodium 2.5 mg tablet 2.5 mg PO .once weekly 08/15/21 10/07/22 mometasone-formoterol HFA 200 2 puff inhalation BID 08/15/21 10/07/22 mcg-5 mcg/actuation aerosol inhaler (Dulera) montelukast 10 mg tablet 10 mg PO .daily at bedtime 08/15/21 10/07/22 nystatin 100,000 unit/gram topical 1 applic topical TID 08/15/21 10/07/22 powder (Nystop) risperidone 0.5 mg tablet 0.5 mg PO .daily in afternoon 08/15/21 10/07/22 venlafaxine 150 mg 150 mg PO DAILY 08/15/21 10/07/22 capsule,extended release 24 hr venlafaxine 75 mg capsule,extended 75 mg PO DAILY 08/15/21 10/07/22 release 24 hr aspirin 81 mg tablet,delayed 81 mg PO DAILY 11/09/21 10/07/22 release diphenhydramine HCl 25 mg capsule 25 mg PO Q4H PRN 11/09/21 10/07/22 (Benadryl) hydrocortisone 2.5 % topical cream 1 applic topical BID 11/09/21 10/07/22 ibuprofen 600 mg tablet (IBU) 600 mg PO Q6H PRN 11/09/21 09/27/22 cetirizine 10 mg tablet 10 mg PO DAILY 10/07/22 10/07/22 dapagliflozin propanediol 10 mg 10 mg PO DAILY 10/07/22 10/07/22 tablet (Farxiga) exenatide microspheres 2 mg/0.85 2 mg subcut 10/07/22 10/07/22 mL subcutaneous auto-injector (RegBinder) ketorolac 10 mg tablet mg PO 10/07/22 10/07/22 prednisone 10 mg tablet mg PO 10/07/22 10/07/22 Previous Rx's Medication Instructions Recorded acetaminophen 500 mg tablet 1,000 mg (2 x 500 mg) PO Q6H PRN 09/27/22 pain #248 tabs ibuprofen 600 mg tablet 600 mg PO Q6H PRN pain #124 tabs 09/27/22 ketorolac 10 mg tablet 10 mg PO Q8H 5 days #15 tabs 01/30/23 prednisone 10 mg tablets in a dose See Rx Instructions PO .COMPLEX 01/30/23 pack #21 ea Allergies Allergy/AdvReac Type Severity Reaction Status Date / Time morphine Allergy Unknown Verified 10/07/22 14:03 pregabalin Allergy Unknown Verified 10/07/22 14:03 chlorpromazine Allergy seizure Verified 10/07/22 14:03 codeine Allergy Rash Verified 10/07/22 14:03 etodolac Allergy Rash Verified 10/07/22 14:03 hydrocodone Allergy Unknown Verified 10/07/22 14:03 oxycodone Allergy Unknown Verified 10/07/22 14:03 Phenothiazines Allergy seizure Verified 10/07/22 14:03 tylenol 5 Allergy Unknown Uncoded 10/07/22 14:03 Review of Systems Status of ROS: Reports: 10 or more systems reviewed and unremarkable except as noted in History and below Narrative: Constitutional: No fevers, no weight gain or loss. Eyes: No discharge. No vision changes. HENT: No congestion, no sore throat, no ear pain. Cardiovascular: No chest pain, no palpitations. Respiratory: No shortness of breath, no wheezes, no cough. Gastrointestinal: No abdominal pain, no vomiting, no diarrhea. Genitourinary: No dysuria, no hematuria. Musculoskeletal: Rheumatoid arthritis with worsening pain in the right wrist. Skin: No rashes, no pruritis. Neurological: No dizziness, weakness, sensory change, speech change. Endo/Heme/Allergies: No bruising or bleeding. No polydipsia. Pysch: no suicidality, no anxiety, no insomnia. All other systems reviewed and are negative. [facility] Medical History (Updated 01/30/23 @ 14:12 by Amrit Cam MD) High cholesterol ?E78.00 - Pure hypercholesterolemia, unspecified (ICD-10) Vomiting ?R11.10 - Vomiting, unspecified (ICD-10) Right wrist pain ?M25.531 - Pain in right wrist (ICD-10) Pain of right forearm ?M79.631 - Pain in right forearm (ICD-10) Otitis externa ?H60.90 - Unspecified otitis externa, unspecified ear (ICD-10) Migraine headache ?G43.909 - Migraine, unspecified, not intractable, without status migrainosus (ICD-10) Infection due to severe acute respiratory syndrome coronavirus 2 (SARS-CoV-2) ?U07.1 - COVID-19 (ICD-10) Edema ?R60.9 - Edema, unspecified (ICD-10) Diarrhea ?R19.7 - Diarrhea, unspecified (ICD-10) Acute dysfunction of left eustachian tube ?H69.82 - Other specified disorders of Eustachian tube, left ear (ICD-10) Seizure ?R56.9 - Unspecified convulsions (ICD-10) Asthma ?J45.909 - Unspecified asthma, uncomplicated (ICD-10) Diabetes ?E11.9 - Type 2 diabetes mellitus without complications (ICD-10) Rheumatoid arthritis ?M06.9 - Rheumatoid arthritis, unspecified (ICD-10) Surgical History (Updated 10/07/22 @ 14:31 by Allegra Lucas) Status post total left knee replacement (~2005) ?Z96.652 - Presence of left artificial knee joint (ICD-10) H/O: hysterectomy ?Z90.710 - Acquired absence of both cervix and uterus (ICD-10) History of appendectomy ?Z90.49 - Acquired absence of other specified parts of digestive tract (ICD- 10) Social History Smoking Status: Current every day smoker What tobacco products do you use: cigarettes Do you use any of these nicotine containing products: None Second hand tobacco smoke exposure: No How often do you have a drink containing alcohol: never How often do you have six or more drinks on one occasion: Never AUDIT-C Alcohol total score: 0 Non-prescribed substance use: denies use and other Non-prescribed substance use details: [facility]: No Exam Narrative: Exam Narrative: Constitutional: Well-developed, well-nourished, no acute distress. HEENT: Normocephalic, atraumatic. Neck: Normal range of motion. Nontender. Supple. Heart: Regular. No murmurs. Normal rate. Intact distal pulses. Lungs: Clear to auscultation. No chest discomfort. No wheezes, rhonchi, or rales. Abdomen: Normal bowel sounds. Nontender. No rebound tenderness. Genitalia: Deferred. Back: No midline tenderness. Normal range of motion. Extremities: Diffuse pain in the right wrist with mild swelling. Decreased range of motion. Skin: Intact. No rash. Warm. No erythema or pallor. Neurologic: No altered sensation. No weakness. Alert and oriented. Psychiatric: No suicidality. No anxiety or depression. No insomnia. Nursing notes and vitals signs are reviewed. Const: Vital Signs, click to edit/add: Vital Signs - 24 hr 01/30/23 12:59 Temperature 97.7 F Pulse Rate [Pulse Oximeter] 106 H Respiratory Rate 18 Blood Pressure [Ri ght Forearm] 117/67 Pulse Oximetry 91 Oxygen Delivery Me thod Room Air Course Vital Signs Vital signs: Initial Vital Signs Temperature 97.7 F 01/30/23 12:59 Temperature Source Temporal Artery Scan 01/30/23 12:59 Pulse Rate 106 H 01/30/23 12:59 Pulse Rhythm Regular 01/30/23 12:59 Respiratory Rate 18 01/30/23 12:59 Blood Pressure 117/67 01/30/23 12:59 Blood Pressure Mean 83 01/30/23 12:59 Blood Pressure Position Sitting 01/30/23 12:59 Pulse Oximetry 91 01/30/23 12:59 Oxygen Delivery Method Room Air 01/30/23 12:59 Vital Signs Temperature 97.7 F 01/30/23 12:59 Pulse Rate 106 H 01/30/23 12:59 Respiratory Rate 18 01/30/23 12:59 Blood Pressure 117/67 01/30/23 12:59 Pulse Oximetry 91 01/30/23 12:59 Oxygen Delivery Method Room Air 01/30/23 12:59 Temperature 97.7 F 01/30/23 12:59 Pulse Rate 106 H 01/30/23 12:59 Respiratory Rate 18 01/30/23 12:59 Blood Pressure 117/67 01/30/23 12:59 Pulse Oximetry 91 01/30/23 12:59 Oxygen Delivery Method Room Air 01/30/23 12:59 Medical Decision Making MDM Narrative Medical decision making narrative: This patient has rheumatoid arthritis and comes in with worsening pain in her right wrist which is not related to any injury event or strenuous activity. There is no need for any kind of imaging studies at this time. The patient is taking methotrexate but otherwise is not taking any medicine for pain. She received a prescription for prednisone and Toradol. She is advised to follow-up with her primary physician for ongoing management. Discharge Plan Discharge Clinical Impression: Rheumatoid arthritis Patient Disposition: Home, Self-Care Condition: Unchanged Additional Instructions: Take medications as prescribed. Follow up with MD or return if worsening. Prescriptions: New ketorolac 10 mg tablet 10 mg PO Q8H 5 Days Qty: 15 0RF prednisone 10 mg tablets,dose pack See Rx Instructions .ROUTE .COMPLEX Qty: 21 0RF Rx Instructions: orally per package directions No Action cetirizine 10 mg tablet 10 mg PO DAILY Byyuriy BCise 2 mg/0.85 mL auto-injector 2 mg subcut Farxiga 10 mg tablet 10 mg PO DAILY prednisone 10 mg tablet PO ketorolac 10 mg tablet PO ibuprofen 600 mg tablet 600 mg PO Q6H PRN (Reason: pain) Qty: 124 0RF acetaminophen 500 mg tablet 1,000 mg PO Q6H PRN (Reason: pain) Qty: 248 0RF furosemide 40 mg tablet 40 mg PO DAILY PRN (Reason: swelling) atorvastatin 40 mg tablet 40 mg PO .bedtime Patient Comments: TAKE ONE TABLET BY MOUTH AT BEDTIME venlafaxine 75 mg capsule,extended release 24hr 75 mg PO DAILY Patient Comments: TAKE ONE CAPSULE BY MOUTH ONCE DAILY WITH A MEAL albuterol sulfate 2.5 mg /3 mL (0.083 %) solution for nebulization 2.5 mg inhalation Q4H PRN Patient Comments: INHALE 3 ML (2.5 MG) VIA A NEBULIZER EVERY 4 HOURS IF NEEDED. ammonium lactate 12 % lotion 1 applic TOPICAL .2 times Patient Comments: APPLY TOPICALLY TO AFFECTED AREA(S) 2 TIMES DAILY. Rx Instructions: NOT .2 TIMES DAILY. TWO TIMES DAILY!!!!!!!!!!!!!!!! (DME) blood-glucose meter [Contour Next Meter] Misc MISCELLANEOUS Patient Comments: DISPENSE METER, TEST STRIPS, LANCETS COVERED BY PT INS. E11.65 NIDDM TYPE II, UNCONTROLLED - TEST 3 TIMES/DAY, REASON: HYPOGLYCEMIA glipizide 10 mg tablet extended release 24hr 10 mg PO .once daily before me Hold Instructions: Order Change Patient Comments: TAKE 1 TABLET BY MOUTH ONCE DAILY BEFORE A MEAL venlafaxine 150 mg capsule,extended release 24hr 150 mg PO DAILY Patient Comments: TAKE ONE CAPSULE BY MOUTH ONCE DAILY WITH A MEAL (DME) Contour Next Test Strips Strip MISCELLANEOUS Patient Comments: TEST BLOOD SUGARS 3 TIMES PER DAY. baclofen 20 mg tablet 20 mg PO TID Patient Comments: TAKE 1 TABLET BY MOUTH THREE TIMES DAILY methotrexate sodium 2.5 mg tablet 2.5 mg PO .once weekly Patient Comments: TAKE 10 TABLETS (25MG) BY MOUTH ONCE WEEKLY gabapentin 300 mg capsule 900 mg PO TID folic acid 1 mg tablet 1 mg PO DAILY Patient Comments: TAKE 1 TABLET BY MOUTH ONCE DAILY montelukast 10 mg tablet 10 mg PO .daily at bedtime Patient Comments: TAKE 1 TABLET BY MOUTH ONCE DAILY AT BEDTIME nystatin [Nystop] 100,000 unit/gram powder 1 applic TOPICAL TID Patient Comments: APPLY 1 STRIP TOPICALLY TO AFFECTED AREA(S) 3 TIMES DAILY. fluticasone propionate 50 mcg/actuation spray,suspension 1 spray INTRANASAL BID PRN Patient Comments: INSTILL 1 SPRAY INTO EACH NOSTRIL TWICE DAILY NEEDED glipizide 5 mg tablet 5 mg PO DAILY Patient Comments: TAKE ONE TABLET BY MOUTH ONCE DAILY BEFORE A MEAL risperidone 0.5 mg tablet 0.5 mg PO .daily in afternoon Patient Comments: TAKE 1 TABLET BY MOUTH ONCE DAILY IN THE AFTERNOON duloxetine 60 mg capsule,delayed release(DR/EC) 60 mg PO BID Patient Comments: TAKE 1 CAPSULE BY MOUTH TWICE DAILY Dulera 200-5 mcg/actuation HFA aerosol inhaler 2 puff INHALATION BID Patient Comments: INHALE 2 PUFFS BY MOUTH TWICE A DAY ibuprofen [IBU] 600 mg tablet 600 mg PO Q6H PRN Hold Instructions: not taking but will in needed diphenhydramine HCl [Benadryl] 25 mg capsule 25 mg PO Q4H PRN aspirin 81 mg tablet,delayed release (DR/EC) 81 mg PO DAILY Patient Comments: TAKE 1 TABLET BY MOUTH ONCE DAILY hydrocortisone 2.5 % cream 1 applic topical BID Follow Up/Referrals: Jossy Henson MD [Primary Care Provider] - Stand Alone Forms: [employer] Info Instructions
--- NOTE | 2023-01-30 16:01 | ED.NURSE ---
Call from Eduar, pharmacist at [facility] in [place]. Pharmacist unclear about Prednisone Dose Pack instructions. Per MD, pt to take 6 tablets together on Day 1, 5 tablets together on Day 2, 4 tablets together on Day 3, 3 tablets together on Day 4, 2 tablets together on Day 5, and 1 tablet on Day 6. Tablets are 10 mg and pt to be dispensed 21 tablets.
== END 2023-01-30 14:28 | disposition home or self-care (01) ==
PROVIDERS: Emergency Provider Emergency Medicine Emergency Medical Services; PCP Family Medicine
DX: M06.831 Other specified rheumatoid arthritis, right wrist (principal)
CPT/HCPCS: 95992; 99283; 99284

== ENCOUNTER 2023-03-21 17:28 | Emergency (ER) | payer OTHER, SELFPAY ==
[2023-03-21 17:31] VITALS: BP 125/74; PULSE 102; RESP 20; TEMP 36.5; O2SAT 97; BMI 36.4
--- NOTE | 2023-03-21 17:57 | ED_ITS ---
HPI - General Adult General Date Seen: 03/21/23 Chief complaint: Extremity Pain/Injury, Lower Stated complaint: R big toe swollen/infected Time Seen by Provider: 03/21/23 17:34 History of Present Illness HPI narrative: 62-year-old female with a history of rheumatoid arthritis (on methotrexate) osteoarthritis, tobacco use, diabetes, dyslipidemia, and history of gout who presents to the ER today for evaluation of pain involving her right great toe. In particular she has had a swollen, slightly red, slightly squishy bump affecting the medial aspect of her right foot on the medial aspect of the right MTP joint. She says it has probably been swollen like that for several days but she says she ?just isn't good the time? and can not remember for sure how long it has been swollen. Certainly swollen since she took a shower on . Sometimes he gets bigger and sometimes it gets smaller. He does not have any known injury. She does not think she has been walking without shoes or would have had any puncture injury to her foot. However she does have some chronic numbness and burning in her foot due to diabetic neuropathy. She has not had any fever or chills. No other spreading redness or swelling in her foot. No known injury. Related Data Home Medications Medication Instructions Recorded Confirmed albuterol sulfate 2.5 mg/3 mL 2.5 mg inhalation Q4H PRN 08/15/21 10/07/22 (0.083 %) solution for nebulization ammonium lactate 12 % lotion 1 applic topical .2 times 08/15/21 10/07/22 atorvastatin 40 mg tablet 40 mg PO .bedtime 08/15/21 10/07/22 baclofen 20 mg tablet 20 mg PO TID 08/15/21 10/07/22 blood sugar diagnostic (Contour 08/15/21 07/15/22 Next Test Strips) blood-glucose meter (Contour Next 08/15/21 07/15/22 Meter) duloxetine 60 mg capsule,delayed 60 mg PO BID 08/15/21 10/07/22 release fluticasone propionate 50 1 spray intranasal BID PRN 08/15/21 10/07/22 mcg/actuation nasal spray,suspension folic acid 1 mg tablet 1 mg PO DAILY 08/15/21 10/07/22 furosemide 40 mg tablet 40 mg PO DAILY PRN swelling 08/15/21 10/07/22 gabapentin 300 mg capsule 900 mg PO TID 08/15/21 10/07/22 glipizide 10 mg tablet, extended 10 mg PO .once daily before me 08/15/21 10/07/22 release 24 hr glipizide 5 mg tablet 5 mg PO DAILY 08/15/21 10/07/22 methotrexate sodium 2.5 mg tablet 2.5 mg PO .once weekly 08/15/21 10/07/22 mometasone-formoterol HFA 200 2 puff inhalation BID 08/15/21 10/07/22 mcg-5 mcg/actuation aerosol inhaler (Dulera) montelukast 10 mg tablet 10 mg PO .daily at bedtime 08/15/21 10/07/22 nystatin 100,000 unit/gram topical 1 applic topical TID 08/15/21 10/07/22 powder (Nystop) risperidone 0.5 mg tablet 0.5 mg PO .daily in afternoon 08/15/21 10/07/22 venlafaxine 150 mg 150 mg PO DAILY 08/15/21 10/07/22 capsule,extended release 24 hr venlafaxine 75 mg capsule,extended 75 mg PO DAILY 08/15/21 10/07/22 release 24 hr aspirin 81 mg tablet,delayed 81 mg PO DAILY 11/09/21 10/07/22 release diphenhydramine HCl 25 mg capsule 25 mg PO Q4H PRN 11/09/21 10/07/22 (Benadryl) hydrocortisone 2.5 % topical cream 1 applic topical BID 11/09/21 10/07/22 ibuprofen 600 mg tablet (IBU) 600 mg PO Q6H PRN 11/09/21 09/27/22 cetirizine 10 mg tablet 10 mg PO DAILY 10/07/22 10/07/22 dapagliflozin propanediol 10 mg 10 mg PO DAILY 10/07/22 10/07/22 tablet (Farxiga) exenatide microspheres 2 mg/0.85 2 mg subcut 10/07/22 10/07/22 mL subcutaneous auto-injector (India Benson) ketorolac 10 mg tablet mg PO 10/07/22 10/07/22 prednisone 10 mg tablet mg PO 10/07/22 10/07/22 Previous Rx's Medication Instructions Recorded acetaminophen 500 mg tablet 1,000 mg (2 x 500 mg) PO Q6H PRN 09/27/22 pain #248 tabs ibuprofen 600 mg tablet 600 mg PO Q6H PRN pain #124 tabs 09/27/22 ketorolac 10 mg tablet 10 mg PO Q8H 5 days #15 tabs 01/30/23 prednisone 10 mg tablets in a dose See Rx Instructions PO .COMPLEX 01/30/23 pack #21 ea naproxen 500 mg tablet 500 mg PO BID #14 tabs 03/21/23 Allergies Allergy/AdvReac Type Severity Reaction Status Date / Time morphine Allergy Unknown Verified 10/07/22 14:03 pregabalin Allergy Unknown Verified 10/07/22 14:03 chlorpromazine Allergy seizure Verified 10/07/22 14:03 codeine Allergy Rash Verified 10/07/22 14:03 etodolac Allergy Rash Verified 10/07/22 14:03 hydrocodone Allergy Unknown Verified 10/07/22 14:03 oxycodone Allergy Unknown Verified 10/07/22 14:03 Phenothiazines Allergy seizure Verified 10/07/22 14:03 tylenol 5 Allergy Unknown Uncoded 10/07/22 14:03 [facility] Medical History (Updated 03/21/23 @ 19:02 by Shravan Lowery MD) High cholesterol ?E78.00 - Pure hypercholesterolemia, unspecified (ICD-10) Vomiting ?R11.10 - Vomiting, unspecified (ICD-10) Right wrist pain ?M25.531 - Pain in right wrist (ICD-10) Pain of right forearm ?M79.631 - Pain in right forearm (ICD-10) Otitis externa ?H60.90 - Unspecified otitis externa, unspecified ear (ICD-10) Migraine headache ?G43.909 - Migraine, unspecified, not intractable, without status migrainosus (ICD-10) Infection due to severe acute respiratory syndrome coronavirus 2 (SARS-CoV-2) ?U07.1 - COVID-19 (ICD-10) Edema ?R60.9 - Edema, unspecified (ICD-10) Diarrhea ?R19.7 - Diarrhea, unspecified (ICD-10) Acute dysfunction of left eustachian tube ?H69.82 - Other specified disorders of Eustachian tube, left ear (ICD-10) Seizure ?R56.9 - Unspecified convulsions (ICD-10) Asthma ?J45.909 - Unspecified asthma, uncomplicated (ICD-10) Diabetes ?E11.9 - Type 2 diabetes mellitus without complications (ICD-10) Rheumatoid arthritis ?M06.9 - Rheumatoid arthritis, unspecified (ICD-10) Surgical History (Updated 10/07/22 @ 14:31 by Allegra Lucas) Status post total left knee replacement (~2005) ?Z96.652 - Presence of left artificial knee joint (ICD-10) H/O: hysterectomy ?Z90.710 - Acquired absence of both cervix and uterus (ICD-10) History of appendectomy ?Z90.49 - Acquired absence of other specified parts of digestive tract (ICD- 10) Social History Smoking Status: Current every day smoker What tobacco products do you use: cigarettes Do you use any of these nicotine containing products: None Second hand tobacco smoke exposure: No How often do you have a drink containing alcohol: never How often do you have six or more drinks on one occasion: Never AUDIT-C Alcohol total score: 0 Non-prescribed substance use: denies use and other Non-prescribed substance use details: cbd gummies service: No Exam Narrative: Exam Narrative: Constitutional: Appears well-developed and well-nourished. Alert. Conversant, but limited historian. She really can not recall how long her toes been red or swollen. Perhaps a few days, but perhaps significantly longer.. Non toxic. HENT: Head: Atraumatic. Nose: Nose normal. Mouth/Throat: Oral mucosa is clear and moist. no trismus. Eyes: Conjunctivae normal. EOM normal. Pupils equal, round, and reactive to light. No scleral icterus. Neck: Normal range of motion. Neck supple. No tracheal deviation present. Cardiovascular: Normal rate, regular rhythm. No gallop. No friction rub. No murmur heard. Symmetric DP and PT artery pulses Pulmonary/Chest: Effort normal. No stridor. No respiratory distress. No wheezes. No rales. No rhonchi . No tenderness. Abdominal: Soft. Bowel sounds normal. No distension. No mass. No tenderness. No rebound. No guarding. Musculoskeletal: RUE: Normal range of motion. No tenderness. No deformity LUE: Normal range of motion. No tenderness. No deformity RLE: Normal range of motion. No edema. She has sensitivity to palpation of all of her toes because of neuropathy. She has an area of redness and swelling involving the medial aspect of the foot adjacent to the 1st MTP joint. 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 It is roughly 2 cm in diameter and slightly raised compared to the medial foot. She has previously lost her toenail of the great toe. Otherwise the great toe looks good. No other surrounding redness of the toe or midfoot or forefoot. No ascending lymphangitis. LLE: Normal range of motion. No edema. No tenderness. No deformity Lymph: No cervical adenopathy. Neurological: Alert and oriented to person, place, and time. Normal strength. CN II-VII intact. No sensory deficit. GCS eye subscore is 4. GCS verbal subscore is 5. GCS motor subscore is 6. Normal coordination Skin: Skin is warm and dry. No rash noted. No pallor. Normal capillary refill. Psychiatric: Normal mood. Normal affect. Const: Vital Signs, click to edit/add: Vital Signs - 24 hr 03/21/23 17:31 Temperature 97.7 F Pulse Rate [Left P ulse Oximeter] 102 H Respiratory Rate 20 Blood Pressure [Ri ght Upper Arm] 125/74 Pulse Oximetry 97 Oxygen Delivery Me thod Room Air Course Vital Signs Vital signs: Initial Vital Signs Temperature 97.7 F 03/21/23 17:31 Temperature Source Temporal Artery Scan 03/21/23 17:31 Pulse Rate 102 H 03/21/23 17:31 Respiratory Rate 20 03/21/23 17:31 Blood Pressure 125/74 03/21/23 17:31 Blood Pressure Mean 91 03/21/23 17:31 Blood Pressure Position Sitting 03/21/23 17:31 Pulse Oximetry 97 03/21/23 17:31 Oxygen Delivery Method Room Air 03/21/23 17:31 Vital Signs Temperature 97.7 F 03/21/23 17:31 Pulse Rate 102 H 03/21/23 17:31 Respiratory Rate 20 03/21/23 17:31 Blood Pressure 125/74 03/21/23 17:31 Pulse Oximetry 97 03/21/23 17:31 Oxygen Delivery Method Room Air 03/21/23 17:31 Temperature 97.7 F 03/21/23 17:31 Pulse Rate 102 H 03/21/23 17:31 Respiratory Rate 20 03/21/23 17:31 Blood Pressure 125/74 03/21/23 17:31 Pulse Oximetry 97 03/21/23 17:31 Oxygen Delivery Method Room Air 03/21/23 17:31 Medications Administered Medications: Discontinued Medications Generic Name Dose Route Start Last Admin Trade Name Ines PRN Reason Stop Dose Admin Cephalexin HCl 500 mg 03/21/23 19:05 03/21/23 19:08 Cephalexin 500 Mg Capsule PO 03/21/23 19:06 500 mg ONCE ONE Administration Ibuprofen 600 mg 03/21/23 19:03 03/21/23 19:07 Ibuprofen 600 Mg Tablet PO 03/21/23 19:04 600 mg ONCE ONE Administration Lidocaine HCl 20 ml 03/21/23 18:10 03/21/23 18:25 Lidocaine 1% Mdv INJECTION 03/21/23 18:11 3 ml ONCE ONE Administration Naproxen 500 mg 03/21/23 18:57 03/21/23 19:07 Naproxen 250 Mg Tablet PO 03/21/23 18:58 Not Given ONCE ONE Medical Decision Making MDM Narrative Medical decision making narrative: This is a 63-year-old female with a history of diabetes and diabetic neuropathy affecting her feet, also history of rheumatoid arthritis on methotrexate and a history of gout who presents to the ER today with pain swelling involving the medial aspect of her right foot at the MTP joint. She does know how long it has been like this but at least a few days. Today she was worried that she might be developing an infection because she has diabetes, however she has not had any really increasing redness or swelling, if anything it is actually getting smaller. No purulent drainage. No fever chills. No redness spreading up her legs. She does not have any history of trauma. She does have chronic numbness and tingling pain in her toes which is unchanged. Differential here would include gouty arthritis with tophi which I think is most likely as well as septic arthritis. Less likely would be occult trauma since she has neuropathy and limited sensation. X-rays are obtained and are negative for any fracture. They do show evidence for bony erosions and probable gout. We attempted arthrocentesis (after fastidious sterile prep with Betadine and local anesthesia with lidocaine, sterile technique throughout to gain fluid from the joint so we could confirm the diagnosis of gout but were unsuccessful because she was just having too much pain due to the distal traction on the great toe joint used to open up the 1st MTP joint. We were not able to obtain any fluid. At this point there is no significant spreading redness or other signs of cellulitis. I have low suspicion for possible septic arthritis however, we were unable to succeed in arthrocentesis to get fluid.. However since the patient does have RA, on methotrexate and diabetes, who cover her with a course of oral antibiotics. Will also treat the most likely cause for [id number] a course of NSAIDs. Corticosteroids relatively contraindicated by diabetes. Colchicine contraindicated by medical comorbidities, statin use. She will need close outpatient follow up in the Ortho or Podiatry Clinic for re-evaluation. Based on the bony erosions of her big toe on the x-ray, would need an MRI in follow-up. This can be done clinic. Return precautions reviewed. Questions answered. Immobilization an ortho shoe. Cephalexin 500 mg t.i.d. through [facility]. Prescription for NSAIDs sent to her pharmacy at [place]. We discussed the [place] pharmacy is closed tomorrow on Thursday, but she refused to switch to any other pharmacy. Imaging Data xr foot, right: Attestation: I have reviewed the pertinent imaging results. Radiologist's impression: IMPRESSION: Moderate soft tissue swelling with periarticular erosions predominately involving the 1st metatarsal head of the right foot, with potential involvement of the 2nd metatarsal as well. Findings are suggestive of gouty arthritis, however septic arthritis remains on the differential. Follow-up MR with and without contrast may be considered for improved characterization. Discharge Plan Discharge Clinical Impression: Arthritis of first metatarsophalangeal (MTP) joint Patient Disposition: Home, Self-Care Instructions: Gout (ED) Additional Instructions: We suspect that your toe joint swelling is due to gout attack in the toe joint. Please take the anti-inflammatory medicines twice daily for the next 3-7 days to help reduce the swelling. Use caution because this medicine can cause a flare up of GERD or upset stomach. Call [phone] on Thursday morning to arrange a clinic follow-up with the orthopedist or the rating specialist for re-evaluation. You will need an MRI of your 5th toe for further assessment. I do not think your toe joint is infected, but we will start you on antibiotics today to prevent any infection from developing. Monitor carefully and if you do have increasing swelling, increasing redness, or if you develop a fever or other symptoms of infection, please come back to the ER right away. Prescriptions: New naproxen 500 mg tablet 500 mg PO BID Qty: 14 0RF No Action cetirizine 10 mg tablet 10 mg PO DAILY Bydureon BCise 2 mg/0.85 mL auto-injector 2 mg subcut Farxiga 10 mg tablet 10 mg PO DAILY prednisone 10 mg tablet PO ketorolac 10 mg tablet PO ibuprofen 600 mg tablet 600 mg PO Q6H PRN (Reason: pain) Qty: 124 0RF acetaminophen 500 mg tablet 1,000 mg PO Q6H PRN (Reason: pain) Qty: 248 0RF furosemide 40 mg tablet 40 mg PO DAILY PRN (Reason: swelling) atorvastatin 40 mg tablet 40 mg PO .bedtime Patient Comments: TAKE ONE TABLET BY MOUTH AT BEDTIME venlafaxine 75 mg capsule,extended release 24hr 75 mg PO DAILY Patient Comments: TAKE ONE CAPSULE BY MOUTH ONCE DAILY WITH A MEAL albuterol sulfate 2.5 mg /3 mL (0.083 %) solution for nebulization 2.5 mg inhalation Q4H PRN Patient Comments: INHALE 3 ML (2.5 MG) VIA A NEBULIZER EVERY 4 HOURS IF NEEDED. ammonium lactate 12 % lotion 1 applic TOPICAL .2 times Patient Comments: APPLY TOPICALLY TO AFFECTED AREA(S) 2 TIMES DAILY. Rx Instructions: NOT .2 TIMES DAILY. TWO TIMES DAILY!!!!!!!!!!!!!!!! (DME) blood-glucose meter [Contour Next Meter] Misc MISCELLANEOUS Patient Comments: DISPENSE METER, TEST STRIPS, LANCETS COVERED BY PT INS. E11.65 NIDDM TYPE II, UNCONTROLLED - TEST 3 TIMES/DAY, REASON: HYPOGLYCEMIA glipizide 10 mg tablet extended release 24hr 10 mg PO .once daily before me Hold Instructions: Order Change Patient Comments: TAKE 1 TABLET BY MOUTH ONCE DAILY BEFORE A MEAL venlafaxine 150 mg capsule,extended release 24hr 150 mg PO DAILY Patient Comments: TAKE ONE CAPSULE BY MOUTH ONCE DAILY WITH A MEAL (DME) Contour Next Test Strips Strip MISCELLANEOUS Patient Comments: TEST BLOOD SUGARS 3 TIMES PER DAY. baclofen 20 mg tablet 20 mg PO TID Patient Comments: TAKE 1 TABLET BY MOUTH THREE TIMES DAILY methotrexate sodium 2.5 mg tablet 2.5 mg PO .once weekly Patient Comments: TAKE 10 TABLETS (25MG) BY MOUTH ONCE WEEKLY gabapentin 300 mg capsule 900 mg PO TID folic acid 1 mg tablet 1 mg PO DAILY Patient Comments: TAKE 1 TABLET BY MOUTH ONCE DAILY montelukast 10 mg tablet 10 mg PO .daily at bedtime Patient Comments: TAKE 1 TABLET BY MOUTH ONCE DAILY AT BEDTIME nystatin [Nystop] 100,000 unit/gram powder 1 applic TOPICAL TID Patient Comments: APPLY 1 STRIP TOPICALLY TO AFFECTED AREA(S) 3 TIMES DAILY. fluticasone propionate 50 mcg/actuation spray,suspension 1 spray INTRANASAL BID PRN Patient Comments: INSTILL 1 SPRAY INTO EACH NOSTRIL TWICE DAILY NEEDED glipizide 5 mg tablet 5 mg PO DAILY Patient Comments: TAKE ONE TABLET BY MOUTH ONCE DAILY BEFORE A MEAL risperidone 0.5 mg tablet 0.5 mg PO .daily in afternoon Patient Comments: TAKE 1 TABLET BY MOUTH ONCE DAILY IN THE AFTERNOON duloxetine 60 mg capsule,delayed release(DR/EC) 60 mg PO BID Patient Comments: TAKE 1 CAPSULE BY MOUTH TWICE DAILY Dulera 200-5 mcg/actuation HFA aerosol inhaler 2 puff INHALATION BID Patient Comments: INHALE 2 PUFFS BY MOUTH TWICE A DAY ibuprofen [IBU] 600 mg tablet 600 mg PO Q6H PRN Hold Instructions: not taking but will in needed diphenhydramine HCl [Benadryl] 25 mg capsule 25 mg PO Q4H PRN aspirin 81 mg tablet,delayed release (DR/EC) 81 mg PO DAILY Patient Comments: TAKE 1 TABLET BY MOUTH ONCE DAILY hydrocortisone 2.5 % cream 1 applic topical BID ketorolac 10 mg tablet 10 mg PO Q8H 5 Days Qty: 15 0RF prednisone 10 mg tablets,dose pack See Rx Instructions .ROUTE .COMPLEX Qty: 21 0RF Rx Instructions: orally per package directions Follow Up/Referrals: Jossy Henson MD [Primary Care Provider] - Stand Alone Forms: [employer] Info Instructions
--- NOTE | 2023-03-21 18:09 | CRLHL7_ITS ---
For Patients: As a result of the Century Cures Act, medical imaging exams and procedure reports are released immediately into your electronic medical record. You may view this report before your referring provider. If you have questions, please contact your health care provider. INDICATION: Right 1st metatarsophalangeal joint pain and swelling. TECHNIQUE: Right foot radiographs, 3 views. COMPARISON: None. FINDINGS: There is abnormal periarticular erosions involving the distal right first metatarsal head, and to a lesser extent the 2nd distal metatarsal head, base of the 1st proximal phalanx in the tibial sesamoids as well. There is moderate overlying soft tissue edema. Hallux valgus. No acute fractures. Mild diffuse degenerative joint space narrowing and spurring of the dorsal midfoot. Small plantar calcaneal osteophytes. No radiopaque foreign bodies. IMPRESSION: Moderate soft tissue swelling with periarticular erosions predominately involving the 1st metatarsal head of the right foot, with potential involvement of the 2nd metatarsal as well. Findings are suggestive of gouty arthritis, however septic arthritis remains on the differential. Follow-up MR with and without contrast may be considered for improved characterization. Dictated by Waqas Fine MD @ 03/21/2023 6:52:10 PM (Electronically Signed)
[2023-03-21] MEDS: LIDOCAINE 1% MDV 20 ML INJECTION (18:25)
[2023-03-21] MEDS: IBUPROFEN 600 MG TABLET PO (19:07)
[2023-03-21] MEDS: cephALEXin 500 MG CAPSULE PO (19:08)
--- OUTSIDE RECORDS SUMMARY | 2023-03-21 19:09 | XMS_ITS | Clinical Summary ---
Author Name Unknown Organization [facility] Address [place], [place] [address] Care Team Providers Care Principal Process Engineer Name Role Phone Steven Lopez MD Unavailable [phone] [facility], [place] Unavailable [phone] Jossy Henson MD Primary Care Provider Rn Unavailable Unavailable Allergies Active Allergy Reactions Criticality Noted Date Comments Acetaminophen-Codeine Itching 11/20/2004 However, she tolerates regular acetaminophen. Most likely reacted to the codeine Etodolac Rash 09/01/2011 Purpura, vascultis Morphine Itching 02/27/2015 Oxycodone Itching 06/24/2005 itching Phenothiazines Seizures High 10/18/2002 Seizure (Tolerates IM phenergan). Pregabalin Edema 04/11/2009 Swelling of face, legs,hands, feet, stomach. Patient states, My whole body. Pharmacist told her to stop taking it. Chlorpromazine Seizures High 02/27/2015 Hydrocodone-Acetaminophen Itching 04/05/2004 itching Medications Medication Sig Dispensed Refills Start Date End Date Status diphenhydrAMINE (BENADRYL) 25 mg capsule Take 25 mg by mouth every 4 hours if needed. 0 10/20/19 12 Active hydrocortisone 2.5% creamIndications:H emorrhoids, external Apply topically to affected area(s) 2 times daily. 30 g 0 07/03/19 19 Active Diabetic ShoeIndications:Di abetic polyneuropathy associated with type 2 diabetes mellitus (HC) As directed 1 Each. Wear diabetic shoes daily 1 Each 11 07/03/19 19 Active Walker - 4 wheelsIndications: Fibromyalgia,Diabe tic polyneuropathy associated with type 2 diabetes mellitus (HC),Arthritis of knee, right,Chronic midline low back pain without sciatica Seated walker For home use. Length of need: 99 mo 1 Device 0 05/08/19 21 Active CPAPIndications:OS A (obstructive sleep apnea) CPAP machine for home use at pressure 11cm/H2O, nasal mask x1/3month with nasal cushion x2/mo 1 Device 11 07/14/19 21 Active ammonium lactate 12% topical (LACHYDRIN) 12 % lotionIndications: Dry skin Apply topically to affected area(s) 2 times daily. 225 g 0 08/30/19 21 Active TENS unit and electrodes cmpkIndications:Ch ronic midline low back pain without sciatica,Musculosk eletal back pain As directed. 1 Each 0 09/19/19 Active blood sugar diagnostic (Blood Glucose Test) stripIndications:D iabetes mellitus type 2, uncontrolled, with complications Test blood sugars 3 times per day. 200 Each 11 05/01/19 Active durable medical equipment (DME)Indications:C hronic pain of both knees,Bilateral knee swelling,Type 2 diabetes mellitus with diabetic neuropathy, without long-term current use of insulin (HC),Chronic midline low back pain without sciatica Power lift chair 1 Each 0 08/08/19 Active Contour Next Meter DISPENSE METER, TEST STRIPS, LANCETS COVERED BY PT INS. E11.65 NIDDM TYPE II, UNCONTROLLED - TEST 3 TIMES/DAY, REASON: HYPOGLYCEMIA 0 05/01/19 Active Shower ChairIndications:R heumatoid arthritis involving multiple sites, unspecified whether rheumatoid factor present (HC),Osteoarthriti s of multiple joints, unspecified osteoarthritis type For home use. Length of Need 99 years. 1 Each 0 10/17/19 Active Blood-Glucose Meter (Contour Next Meter)Indications: Type 2 diabetes mellitus with diabetic neuropathy, without long-term current use of insulin (HC) DISPENSE METER, TEST STRIPS, LANCETS COVERED BY PT INS. E11.65 NIDDM TYPE II, UNCONTROLLED - TEST 3 TIMES/DAY, REASON: HYPOGLYCEMIA 1 Kit 0 11/14/19 Active Microlet LancetIndications: Type 2 diabetes mellitus with diabetic neuropathy, without long-term current use of insulin (HC) TEST THREE TIMES DAILY 300 Each 2 11/14/19 22 Active nystatin (MYCOSTATIN) creamIndications:I ntertriginous candidiasis Apply topically to affected area(s) two times daily. 60 g 3 11/22/19 22 Active nystatin powder (MYCOSTATIN) powderIndications: Intertriginous candidiasis Apply 1 Strip topically to affected area(s) three times daily. 60 g 5 11/22/19 22 Active nebulizer accessories kitIndications:Mod erate persistent asthma, unspecified whether complicated For home use. Length of need: 99 months 1 Kit 0 01/23/20 22 Active furosemide (LASIX) 40 mg tabletIndications: Peripheral edema TAKE 1 TABLET (40 MG) BY MOUTH ONCE DAILY IF NEEDED (SWELLING). 90 Tablet 0 08/18/19 23 Active methotrexate (RHEUMATREX) 2.5 mg tabletIndications: Rheumatoid arthritis, involving unspecified site, unspecified whether rheumatoid factor present (HC),Rheumatoid arthritis involving multiple sites, unspecified whether rheumatoid factor present (HC) TAKE 10 TABLETS BY MOUTH ONCE WEEKLY 120 Tablet 0 11/21/19 23 Active predniSONE (DELTASONE) 10 mg tabletIndications: High risk medication use 40 mg prednisone x 3 days , 30 mg daily x 3 days, 20 mg daily x 3 days, 10 mg daily x 3 days. 45 Tablet 0 02/06/20 23 Active fluticasone (50 mcg per actuation) nasal solution (FLONASE)Indicatio ns:Moderate persistent asthma, unspecified whether complicated Inhale 2 Sprays to both nostrils once daily. 15.8 mL 3 02/26/19 24 Active Graduated Compression StockingsIndicatio ns:Peripheral edema For personal use. Length: calf Strength: 20-30 mmHg Circumference in cm: To be measured by vendor 2 Packet 0 02/26/19 24 Active NebulizerIndicatio ns:Moderate persistent asthma, unspecified whether complicated,Tobacc o use disorder, continuous Nebulizer, disposable neb kit x 4, reuseable neb kit x 1, mask x 1, filters x 1. Frequency of use: daily; Medication: albuterol Length of need: 99 months 1 Each 0 02/26/19 24 Active nicotine 21 mg/24 hr (NICODERM; HABITROL) 21 mg/24 hr patchIndications:T obacco use disorder, continuous Apply 1 Patch on dry, clean, hairless skin once daily. 14 Patch 02/26/19 Active atorvastatin (LIPITOR) 40 mg tabletIndications: Dyslipidemia, goal LDL below 100 Take 1 Tablet (40 mg) by mouth at bedtime. 100 Tablet 02/26/19 Active cetirizine (ZYRTEC) 10 mg tabletIndications: Moderate persistent asthma, unspecified whether complicated Take 1 Tablet (10 mg) by mouth once daily. 100 Tablet 02/26/19 Active dapagliflozin propanediol (Farxiga) 10 mg tabletIndications: Type 2 diabetes mellitus with diabetic neuropathy, without long-term current use of insulin (HC) Take 1 Tablet (10 mg) by mouth once daily. 100 Tablet 02/26/19 Active Dulera 200-5 mcg/actuation inhalerIndications :Moderate persistent asthma, unspecified whether complicated Inhale 2 Puffs by mouth two times daily. 13 g 02/26/19 Active DULoxetine (CYMBALTA) 60 mg Delayed-release capsuleIndications :Fibromyalgia Take 1 Capsule (60 mg) by mouth two times daily. 200 Capsule 02/26/19 Active exenatide ER (BYDUREON BCISE) 2 mg/0.85 mL subcutaneous auto-injectorIndic ations:Type 2 diabetes mellitus with diabetic neuropathy, without long-term current use of insulin (HC) Inject 0.85 mL (2 mg) subcutaneous once weekly. 4 Each 02/26/19 Active gabapentin (NEURONTIN) 300 mg capsuleIndications :Diabetic polyneuropathy associated with type 2 diabetes mellitus (HC) Take 3 Capsules (900 mg) by mouth three times daily. 810 Capsule 02/26/19 24 Active glipiZIDE (GLUCOTROL) 5 mg tabletIndications: Type 2 diabetes mellitus with diabetic neuropathy, without long-term current use of insulin (HC) Take 1 Tablet (5 mg) by mouth once daily before a meal. 100 Tablet 02/26/19 Active glipiZIDE extended-release (GLUCOTROL XL) 10 mg Extended-Release tabletIndications: Type 2 diabetes mellitus with diabetic neuropathy, without long-term current use of insulin (HC) Take 1 Tablet (10 mg) by mouth once daily before a meal. 100 Tablet 02/26/19 24 Active montelukast (SINGULAIR) 10 mg tabletIndications: Moderate persistent asthma, unspecified whether complicated Take 1 Tablet (10 mg) by mouth at bedtime. 100 Tablet 3 02/26/19 24 Active aspirin (ECOTRIN) 81 mg enteric coated tabletIndications: Type 2 diabetes mellitus with diabetic neuropathy, without long-term current use of insulin (HC) Take 1 Tablet (81 mg) by mouth once daily. 100 Tablet 3 02/26/19 24 Active albuterol (PROVENTIL) 0.083 % neb solutionIndication s:Moderate persistent asthma, unspecified whether complicated Inhale 3 mL (2.5 mg) via a nebulizer every 4 hours if needed for Shortness Of Breath or Wheezing. 90 mL 5 02/26/19 24 Active baclofen (LIORESAL) 20 mg tabletIndications: Fibromyalgia Take 1 Tablet (20 mg) by mouth three times daily. 300 Tablet 3 02/26/19 24 Active risperiDONE (RISPERDAL) 1 mg tabletIndications: Depression, unspecified depression type Take 1 Tablet (1 mg) by mouth at bedtime. 100 Tablet 3 02/27/19 24 Active ondansetron (Zofran) 4 mg tabletIndications: Adenomatous polyp of colon, unspecified part of colon Take 2 Tablets (8 mg) by mouth two times daily. 6 Tablet 0 03/10/19 24 Active polyethylene glycol-electrolyte (GOLYTELY) 236-22.74-6.74 -5.86 gram suspensionIndicati ons:Adenomatous polyp of colon, unspecified part of colon Drink up to 6 liters the day before colonoscopy and 2 liters 6 hours before colonoscopy appointment 8000 mL 0 03/10/19 24 Active folic acid 1 mg tabletIndications: Rheumatoid arthritis, involving unspecified site, unspecified whether rheumatoid factor present (HC) TAKE 1 TABLET (1 MG) BY MOUTH ONCE DAILY. 90 Tablet 0 03/05/19 24 Active fluticasone (50 mcg per actuation) nasal solution (FLONASE)Indicatio ns:Moderate persistent asthma, unspecified whether complicated Inhale 1 [place] in the nostril(s) 2 times daily if needed. 1 Bottle 11 12/24/19 024 Discontinued(Re order (E-cancel not sent)) NebulizerIndicatio ns:Tobacco use disorder, continuous,Moderat e persistent asthma, unspecified whether complicated Nebulizer, disposable neb kit x 4, reuseable neb kit x 1, mask x 1, filters x 1. Frequency of use: daily; Medication: albuterol Length of need: 99 months 1 Device 0 08/16/19 21 024 Discontinued(Re order (E-cancel not sent)) cholecalciferol (Vitamin D-3) 2,000 unit capsuleIndications :Vitamin D deficiency Take 1 Capsule (2,000 units) by mouth once daily. 90 Capsule 3 05/15/19 22 024 Discontinued(*M ed complete/Regime n complete/Level of care change) clonazePAM (KLONOPIN) 0.5 mg tablet Take 0.5 mg by mouth. 0 024 Discontinued(*M ed complete/Regime n complete/Level of care change) albuterol (PROVENTIL) 0.083 % neb solutionIndication s:Moderate persistent asthma, unspecified whether complicated Inhale 3 mL (2.5 mg) via a nebulizer every 4 hours if needed for Shortness Of Breath or Wheezing. 90 mL 5 01/23/20 22 024 Discontinued(Re order (E-cancel not sent)) HYDROmorphone (DILAUDID) 2 mg tablet Take 2 mg by mouth every 6 hours if needed. for pain 0 03/03/19 23 024 Discontinued(*M ed complete/Regime n complete/Level of care change) Graduated Compression StockingsIndicatio ns:Peripheral edema For personal use. Length: calf Strength: 20-30 mmHg Circumference in cm: To be measured by vendor 2 Packet 0 06/05/19 23 024 Discontinued(Re order (E-cancel not sent)) exenatide ER (BYDUREON BCISE) 2 mg/0.85 mL subcutaneous auto-injectorIndic ations:Type 2 diabetes mellitus with diabetic neuropathy, without long-term current use of insulin (HC) Inject 0.85 mL (2 mg) subcutaneous once weekly. 4 Each 06/05/19 23 024 Discontinued(Re order (E-cancel not sent)) dapagliflozin (Farxiga) 10 mg tabletIndications: Type 2 diabetes mellitus with diabetic neuropathy, without long-term current use of insulin (HC) Take 1 Tablet (10 mg) by mouth once daily. 90 Tablet 3 06/05/19 23 024 Discontinued(Re order (E-cancel not sent)) glipiZIDE (GLUCOTROL) 5 mg tabletIndications: Type 2 diabetes mellitus with diabetic neuropathy, without long-term current use of insulin (HC) Take 1 Tablet (5 mg) by mouth once daily before a meal. 90 Tablet 3 06/05/19 23 024 Discontinued(Re order (E-cancel not sent)) glipiZIDE extended-release (GLUCOTROL XL) 10 mg Extended-Release tabletIndications: Type 2 diabetes mellitus with diabetic neuropathy, without long-term current use of insulin (HC) Take 1 Tablet (10 mg) by mouth once daily before a meal. 90 Tablet 3 06/05/19 024 Discontinued(Re order (E-cancel not sent)) aspirin (ECOTRIN) 81 mg enteric coated tabletIndications: Type 2 diabetes mellitus with diabetic neuropathy, without long-term current use of insulin (HC) TAKE 1 TABLET BY MOUTH ONCE DAILY 90 Tablet 3 08/29/19 23 024 Discontinued(Re order (E-cancel not sent)) atorvastatin (LIPITOR) 40 mg tabletIndications: Dyslipidemia, goal LDL below 100 TAKE ONE TABLET BY MOUTH AT BEDTIME 90 Tablet 2 08/29/19 024 Discontinued(Re order (E-cancel not sent)) folic acid 1 mg tabletIndications: Rheumatoid arthritis, involving unspecified site, unspecified whether rheumatoid factor present (HC) Take 1 Tablet (1 mg) by mouth once daily. 90 Tablet 0 11/21/19 23 024 Discontinued acetaminophen (Pain Reliever ES,acetaminophn,) 500 mg tabletIndications: Acute pain of left shoulder Take 2 Tablets (1,000 mg) by mouth every 6 hours if needed for Pain. 240 Tablet 0 11/27/19 23 024 Discontinued(*M ed complete/Regime n complete/Level of care change) ibuprofen (ADVIL; MOTRIN) 600 mg tabletIndications: Acute pain of left shoulder TAKE ONE TABLET BY MOUTH EVERY SIX HOURS NEEDED FOR PAIN 90 Tablet 1 11/27/19 23 024 Discontinued(*M ed complete/Regime n complete/Level of care change) cetirizine (ZYRTEC) 10 mg tabletIndications: Moderate persistent asthma, unspecified whether complicated TAKE 1 TABLET BY MOUTH ONCE DAILY 90 Tablet 1 12/06/19 23 024 Discontinued(Re order (E-cancel not sent)) risperiDONE (RISPERDAL) 0.5 mg tabletIndications: Depression, unspecified depression type TAKE 1 TABLET BY MOUTH ONCE DAILY IN THE AFTERNOON 30 Tablet 0 01/22/20 23 024 Discontinued(*M edication adjustment) gabapentin (NEURONTIN) 300 mg capsuleIndications :Diabetic polyneuropathy associated with type 2 diabetes mellitus (HC) TAKE 3 CAPSULES (900 MG) BY MOUTH THREE TIMES DAILY. 270 Capsule 0 02/06/20 23 024 Discontinued(Re order (E-cancel not sent)) Dulera 200-5 mcg/actuation inhalerIndications :Moderate persistent asthma, unspecified whether complicated INHALE 2 PUFFS BY MOUTH TWICE A DAY 13 g 0 02/06/20 23 024 Discontinued(Re order (E-cancel not sent)) DULoxetine (CYMBALTA) 60 mg Delayed-release capsuleIndications :Fibromyalgia TAKE 1 CAPSULE (60 MG) BY MOUTH TWO TIMES DAILY. 60 Capsule 0 02/06/20 23 024 Discontinued(Re order (E-cancel not sent)) baclofen (LIORESAL) 20 mg tabletIndications: Fibromyalgia TAKE 1 TABLET (20 MG) BY MOUTH THREE TIMES DAILY. 90 Tablet 0 02/04/20 23 024 Discontinued(Re order (E-cancel not sent)) montelukast (SINGULAIR) 10 mg tabletIndications: Moderate persistent asthma, unspecified whether complicated TAKE ONE TABLET BY MOUTH AT BEDTIME 30 Tablet 0 02/06/20 23 024 Discontinued(Re order (E-cancel not sent)) Active Problems Problem Noted Date Diagnosed Date Subacromial bursitis of left shoulder joint 03/2021 Subacromial impingement of left shoulder 022 Arthritis of left glenohumeral joint 01/17/2022 Primary osteoarthritis of right knee 10/02/2021 Overview: Reports getting previous right knee cortisone injection approximately 2013. Sep 2021: Dr. Quiroz did right knee cortisone injection. Adenomatous colon polyp 01/26/2018 Overview: Colonoscopy 01/2018 multiple polyps, repeat in 3 years, PEG 4-8L Diabetes mellitus 12/19/2017 Depression 12/19/2017 Common migraine 12/19/2017 Diverticulitis of large inte leni with perforation without bleeding 04/26/2017 Eustachian tube dysfunction, bilateral 7 Diabetic polyneuropathy asso ciated with type 2 diabetes mellitus 01/31/2016 Compulsive skin picking 09/05/2014 Urolithiasis 07/06/2013 RA (rheumatoid arthritis) 06/20/2013 Overview: Overview: Dx ~ 2012, RF positive, CCP neg. Inflammatory fluid right knee: 2011:14,200; 04/2012: 18, 573; 11/2012: 12,800. Cultures negative, crystals negative Methotrexate trial 01/2013 Bilateral carpal tunnel syndrome 12/15/2011 Chondromalacia of patella 07/21/2011 Hoarding behavior 02/17/2011 PTSD (post-traumatic stress disorder) 02/17/2011 Overview: Overview: IMO Update 11/26 Asthma 08/21/2010 JV 09/07/2018 AHI-27.7 06/13/2010 Overview: Overview: IMO Update 11/26 Bipolar affective disorder 05/16/2010 Atopic rhinitis 11/16/2009 Overview: IMO Update 11/26 AC (acromioclavicular) joint arthritis 0 Biceps tendonitis 11/13/2009 Vitamin D deficiency 08/13/2009 Memory impairment 01/31/2009 Fibromyalgia 01/03/2009 Sacroiliac joint dysfunction of both sides 12/01 Alcohol abuse, in remission 08/23/2008 Overview: Overview: IMO Update 11/26 Osteoarthritis of multiple joints 08/23/2008 Overview: Overview: IMO Update 11/26 Facet arthropathy of spine 08/23/2008 Overview: IMO Update 11/26 Meralgia paraesthetica 01/12/2008 Overview: Overview: Left thigh IMO Update 11/26 Dysphagia 12/05/2007 Overview: Overview: IMO Update 2015 Chronic low back pain 05/14/2007 Overview: Overview: MRI Lumbar spine 2007; IMPRESSION: Very mild degenerative changes at L4-L5 fairly similar to the previous study. Congenital partial fusion anteriorly of T11-T12. IMO Update 11/26 IMO Update Borderline personality disorder 08/03/2006 Overview: Overview: IMO Update 11/26 Mixed hyperlipidemia 06/29/2006 Heavy smoker (more than 20 cigarettes per day) 1 02/22/2002 Obesity, Class II, BMI 35-39.9 12/23/2002 Overview: Overview: Body mass index is 36.22 kg/(m^2). 01/31/2016: Body mass index is 37.93 kg/(m^2). 06/20/2016: Body mass index is 37.45 kg/(m^2). 09/22/2016: Body mass index is 38.38 kg/m??. Encounters Date Type Department Care Team Description 03/18/2023 Telephone [facility] [address] [place] [address] Jossy Henson MD Questions (letter. ) 03/18/2023 Telephone [facility] [address] [place] [address] Steven Lopez MD Questions (talk to care team) 03/05/2023 Refill [facility] [address] [place] [address] Steven Lopez MD Refill Request (Folic Acid) 03/04/2023 Orders Only [facility] [address] [place] [address] Steven Lopez MD <No scans attached> 03/04/2023 Telephone [facility] [address] [place] [address] Steven Lopez MD Prior Authorization (INFLECTRA ([id number])/) 03/03/2023 Telephone [facility] [address] [place] [address] Bc Cunningham MD Screening 03/03/2023 Orders Only [facility] [address] [place] [address] Steven Lopez MD <No scans attached> 03/02/2023 Telephone [facility] [address] [place] [address] Steven Lopez MD Results (Liver enzymes, TB gold) 03/02/2023 Telephone [facility] [address] [place] [address] Steven Lopez MD Prior Authorization (REMICADE ([id number])) 03/02/2023 Telephone [facility] [address] [place] [address] Steven Lopez MD Infusion Therapy 03/02/2023 Orders Only [facility] [address] [place] [address] Steven Lopez MD <No scans attached> 02/27/2023 Telephone [facility] [address] [place] [address] Jossy Henson MD Results 02/26/2023 1:55 PM AUTOMOTIVE REFINISH TECHNICIAN Office Visit [facility] [address] [place] [address] Jossy Henson MD Physical (smoking patches, nasal spray, coughing up phlegm ) 02/26/2023 1:30 PM AUTOMOTIVE REFINISH TECHNICIAN Orders Only [facility] [address] [place] [address] Lab, [facility] 02/26/2023 Travel 02/05/2023 7:00 PM AUTOMOTIVE REFINISH TECHNICIAN Phone Office Visit [facility] [address] [place] [address] Steven Lopez MD 02/05/2023 Travel 02/05/2023 Telephone [facility] [address] [facility] [address] [place] [address] Steven Lopez MD Medication Management (rheumatoid arthritis pain) 02/03/2023 Refill [facility] [address] [place] [address] Katarzyna Tan PA Refill Request (Baclofen) 02/03/2023 Refill [facility] [address] [place] [address] Jossy Henson MD Refill Request (Gabapentin, Dulera, Duloxetine, Montelukast) 01/30/2023 Telephone [facility] [address] [place] [address] Jossy Henson MD Questions (pain) 01/21/2023 Refill [facility] [address] [place] [address] Jossy Henson MD Refill Request (Risperidone) 01/14/2023 Telephone [facility] [address] [place] [address] Steven Lopez MD Failed Appointment 01/12/2023 Telephone [facility] [address] [place] [address] Steven Lopez MD Appointment Reminder 01/05/2023 Refill [facility] [address] [place] [address] Jossy Henson MD Refill Request (Baclofen) 01/05/2023 Refill [facility] [address] [place] [address] Jossy Henson MD Refill Request (Duloxetine, Montelukast) 12/31/2022 Telephone [facility] [address] [facility] [address] [facility] [address] [place] [id number] Steven Lopez MD Questions (Future appt) from Last 3 Months Immunizations Name Administration Dates Next Due COVID-19 Vaccine Spikevax (M oderna 50mcg/0.5mL) 12YO+ [id number] Formula PF 02/26/2023 COVID-19 vaccine (Moderna 100mcg/0.5mL) PF, MDV 05/03/2020 COVID-19 vaccine (Pfizer-Bio NTech 30mcg/0.3mL) 12YO+ BIVALENT PF, MDV 11/21/2021 COVID-19 vaccine (Pfizer-Bio NTech 30mcg/0.3mL) 12YO+ ANGIE-SUCROSE PF, MDV 08/02/2021 Hepatitis B (Adult) 11/02/2018,05/26/2003,2003 Hepatitis B, Unspecified 04/26/2003 Influenza Virus, Unspecified 12/19/2016, 01/31/2016,11/24/2012,2011,10/29/2010,10/31/2008,12/23/2006,1 ,01/01/2005,02/23/2004, 003 Influenza, IIV3 (Age 6-35 mos) 10/31/2008 Influenza, IIV3 (Age >=3 years) 11/25/19 13,11/04/2011,10/29/2010,2009,12/13/2007,12/23/2006,11/27/2005,1 03/03/2004,02/23/2004,12/23/2002 Influenza, IIV4 02/26/2023,,12/14/2020,2019,11/02/2018,12/14/2017,12/19/2016,1 04/02/2015,01/25/2010,12/13/2007 Influenza, IIV4 (=>6mos) MDV 01/31/2016 Pneumococcal Conj 20-valent (Prevnar 20) 08/02/2021 Pneumococcal Poly,23-Valent (Pneumovax) 12/19/2016 Td (Age >=7 Years) 01/17/2003 Tdap 06/28/2012 Zoster (Shingrix-RZV, recombinant) 11/02/2018 Family History Medical History Relation Name Comments COPD Father Edema Father Arthritis Mother Atrial fibrillation Mother COPD Mother Depression Mother Relation Name Status Comments Father (Age 67) Mother (Age 74) Social History Tobacco Use Types Packs/Day Years Used Date Smoking Tobacco: Every Day Cigarettes 1 54.1 Started: [birth year]/16/1969 Smokeless Tobacco: Never Tobacco Cessation:Ready to Q uit: No; Counseling Given: Yes Alcohol Use Standard Drinks/Week Comments No 0 (1 standard drink = 0.6 oz pur e alcohol) hx of alcoholism PHQ-2 Answer Date Recorded PHQ-2 TOTAL SCORE 4 06/04/2022 Social Connections Answer Date Recorded Frequency of Communication with Friends and Fami ly Not on file 08/03/2022 Financial Resource Strain Answer Date R ecorded Difficulty of Paying Living Expenses 3 08/02/2021 Difficulty of Paying Living Expenses Not on file 08/02/2021 Food Insecurity Answer Date Recorded Worried About Running Out of Food in the Last Ye ar 1 08/02/2021 Transportation Needs Answer Date Record ed Lack of Transportation (Medical) 2 08/02/2021 Housing Stability Answer Date Recorded Unable to Pay for Housing in the Last Year 1 08/02/2021 Sex and Gender Information Value Date Recorded Sex Assigned at Not on file Gender Identity Not on file Sexual Orientation Not on file Obstetrics History Last Filed Vital Signs Vital Sign Reading Time Taken Comments Blood Pressure 114/76 02/26/2023 2:19 PM AUTOMOTIVE REFINISH TECHNICIAN Pulse 92 02/26/2023 2:19 PM AUTOMOTIVE REFINISH TECHNICIAN Temperature 36.8 ??C (98.2 ??F) 11/21/2021 2:20 PM CD T Respiratory Rate 16 04/11/2022 11:54 AM AUTOMOTIVE REFINISH TECHNICIAN Oxygen Saturation 94% 02/26/2023 2:19 PM AUTOMOTIVE REFINISH TECHNICIAN Inhaled Oxygen Concentration - - Weight 99.4 kg (219 lb 3.2 oz) 02/26/2023 2:19 P M AUTOMOTIVE REFINISH TECHNICIAN Height 166.5 cm (5' 5.55) 02/26/2023 2:19 PM CS T Body Mass Index 35.87 02/26/2023 2:19 PM AUTOMOTIVE REFINISH TECHNICIAN Plan of Treatment Upcoming Encounters Date Type Department Care Team (Late st Contact Info) Description 05/25/2023 6:30 AM CDT Office Visit [facility] [facility] [place] [address] Bc Cunningham MD [address] [place] [address] 06/01/2023 2:00 PM CDT Office Visit [facility] [address] [place], [place] [id number] Steven Lopez MD [address] [place] [address] Health Maintenance Due Date Last Done Comments HIV for age 15-65 [address] (for lung CA) ag e 50-80 02/22/2012 Zoster (shingles) series for age 50+ (2 of 2) 12/28/2018 11/02/2018 Colonoscopy through age 75 01/25/202101/25, 01/25/2018, 01/25/2018 Mammogram for age 45-75 04/30/2022 05/01/19 22, 12/15/2019, 01/18/2018 Tetanus booster 06/28/2022 06/28/2012, 01/17/2003 COVID-19 vaccine series ( season) 2023 02/26/2023, 11/21/2021, 08/02/2021, Additional history exists Depression screening for age 12+ 06/05/2023 06/04/2022, 06/04/2022, 05/01/2021, Additional history exists BMI (ht and wt on same day) for age 18+ 02/27/2024 02/26/2023, 01/17/2022, 04/30/2021, Additional history exists Lipids for age 45-75 02/27/2028 02/26/2023, 04/30/2021, 04/30/2021, Additional history exists Tdap Completed 06/28/2012 Pneumococcal series for age 6-64 Completed 08/03/19 22, 12/19/2016 Hepatitis C screening for ag e 18-79 Completed 02/26/2023, 12/26/2021, 10/25/2020, Additional history exists Influenza for age 50-64 Completed 02/26/19 24, 11/21/2021, 12/14/2020, Additional history exists Procedures Procedure Name Priority Date/Time Associated Diagnosis Comments QFT MITOGEN PERFORMABLE Routine 02/26/2023 1:55 PM AUTOMOTIVE REFINISH TECHNICIAN High risk medication use QFT TB2 PERFORMABLE Routine 02/26/2023 1 :55 PM AUTOMOTIVE REFINISH TECHNICIAN High risk medication use QFT TB1 PERFORMABLE Routine 02/26/2023 1 :55 PM AUTOMOTIVE REFINISH TECHNICIAN High risk medication use QUANTIFERON TB GOLD PLUS Routine 02/26/2023 1:55 PM AUTOMOTIVE REFINISH TECHNICIAN High risk medication use COMP METABOLIC PANEL Routine 02/26/2023 1:55 PM AUTOMOTIVE REFINISH TECHNICIAN High risk medication use CBC W PLT NO DIFF Routine 02/26/2023 1:5 5 PM AUTOMOTIVE REFINISH TECHNICIAN High risk medication use ANTI HBS QUANT AHS Routine 02/26/2023 1: 55 PM AUTOMOTIVE REFINISH TECHNICIAN High risk medication use ANTI HCV Routine 02/26/2023 1:55 PM AUTOMOTIVE REFINISH TECHNICIAN High risk medication use QUANTIFERON TB GOLD PLUS Routine 02/26/2023 1:55 PM AUTOMOTIVE REFINISH TECHNICIAN High risk medication use HEMOGLOBIN A1C Routine 02/26/2023 1:55 PM AUTOMOTIVE REFINISH TECHNICIAN Type 2 diabetes mellitus with diabetic neuropathy, without long-term current use of insulin (HC) LDL CHOLESTEROL,DIRECT Routine 02/26/2023 1:55 AM AUTOMOTIVE REFINISH TECHNICIAN Mixed hyperlipidemia from Last 3 Months Results * QFT MITOGEN PERFORMABLE (02/26/2023 1:55 PM AUTOMOTIVE REFINISH TECHNICIAN) MITOGEN 10.00 IU/mL 02/28/2023 9:22 AM AUTOMOTIVE REFINISH TECHNICIAN [facility] Blood BLOOD SPECIMEN / Unknown Venipuncture / Unknown 02/26/2023 1:55 PM AUTOMOTIVE REFINISH TECHNICIAN 02/26/2023 2:06 PM AUTOMOTIVE REFINISH TECHNICIAN Steven Lopez MD CHEMISTRY Performing Organization Address City/[facility]/ZIP Co de Phone Number [facility] [address] [phone], [place] * QFT TB2 PERFORMABLE (02/26/2023 1:55 PM AUTOMOTIVE REFINISH TECHNICIAN) [facility] TB2 0.07 IU/mL 02/28/2023 9:22 AM AUTOMOTIVE REFINISH TECHNICIAN [facility] Blood BLOOD SPECIMEN / Unknown Venipuncture / Unknown 02/26/2023 1:55 PM AUTOMOTIVE REFINISH TECHNICIAN 02/26/2023 2:06 PM AUTOMOTIVE REFINISH TECHNICIAN Steven Lopez MD CHEMISTRY Performing Organization Address City/[facility]/ZIP Co de Phone Number [facility] [address] [place] [id number], [place] * QFT TB1 PERFORMABLE (02/26/2023 1:55 PM AUTOMOTIVE REFINISH TECHNICIAN) [facility] TB1 0.06 IU/mL 02/28/2023 9:50 AM AUTOMOTIVE REFINISH TECHNICIAN [facility] Blood BLOOD SPECIMEN / Unknown Venipuncture / Unknown 02/26/2023 1:55 PM AUTOMOTIVE REFINISH TECHNICIAN 02/26/2023 2:06 PM AUTOMOTIVE REFINISH TECHNICIAN Steven Lopez MD CHEMISTRY Performing Organization Address City/[facility]/ZIP Co de Phone Number [facility] [address] [place] [phone], [place] * QUANTIFERON TB GOLD PLUS (02/26/2023 1:55 PM AUTOMOTIVE REFINISH TECHNICIAN) [facility] QFTP NIL 0.04 02/28/2023 12:32 PM AUTOMOTIVE REFINISH TECHNICIAN [facility] TB1 0.06 IU/mL 02/28/2023 12:32 PM AUTOMOTIVE REFINISH TECHNICIAN [facility] TB2 0.07 IU/mL 02/28/2023 12:32 PM AUTOMOTIVE REFINISH TECHNICIAN [facility] MITOGEN 10.00 IU/mL 02/28/2023 12:32 PM AUTOMOTIVE REFINISH TECHNICIAN [facility] QFTP TB AG1 - NIL 0.02 024 12:32 PM [facility] TB1-NIL % OF NIL 50 % 02/28/19 24 12:32 PM AUTOMOTIVE REFINISH TECHNICIAN [facility] QFTP TB AG2 - NIL 0.03 024 12:32 PM AUTOMOTIVE REFINISH TECHNICIAN [facility] TB2-NIL % OF NIL 75 % 02/28/19 12:32 PM AUTOMOTIVE REFINISH TECHNICIAN [facility] QFTP MITOGEN - NIL 9.96 2023 12:[address] [facility] QFTP QUANTIFERON INTERPRETATION Negative Negative 02/28/2023 12:32 PM AUTOMOTIVE REFINISH TECHNICIAN [facility] Blood BLOOD SPECIMEN / Unknown Venipuncture / Unknown 02/26/2023 1:55 PM AUTOMOTIVE REFINISH TECHNICIAN 02/26/2023 2:06 PM AUTOMOTIVE REFINISH TECHNICIAN [facility] - 02/28/2023 12:32 PM AUTOMOTIVE REFINISH TECHNICIAN M. tuberculosis infection not likely, but cannot be excluded in cases of immunosuppression. CAUTION: The performance of QuantiFERON-TB Gold Plus has not been evaluated in specimens from: - Individuals with impaired or altered immune factors (HIV infections, transplant patients, those receieving immunosuppressive drugs such as corticosteroids) and those with other clinical conditions (e.g., diabetes, hematological disorders). - Individuals younger than 17 years old. ??Refer to CDC website for testing recommendations in children 6-17 years old. - women Steven Lopez MD CHEMISTRY [facility] [address] [place] [address], * ANTI HCV (02/26/2023 1:55 PM AUTOMOTIVE REFINISH TECHNICIAN) HEPATITIS C ANTIBODY Non-Reacti ve Non-React awa 02/26/2023 9:26 PM AUTOMOTIVE REFINISH TECHNICIAN [facility] Comment:Please note, per www .CDC.gov: If a patient is known to be at high risk of HCV infection, or is symptomatic, and the physician's suspicion of HCV infection is high, HCV RNA testing is often employed and is of diagnostic value, even after an initial negative anti-HCV test result. Blood BLOOD SPECIMEN / Unknown Venipuncture / Unknown 02/26/2023 1:55 PM AUTOMOTIVE REFINISH TECHNICIAN 02/26/2023 2:06 PM AUTOMOTIVE REFINISH TECHNICIAN Steven Lopez MD SEND OUTS Performing Organization Address [facility] Co de Phone Number [facility] [address] [place] [address], [place] * ANTI HBS QUANT AHS (02/26/2023 1:55 PM AUTOMOTIVE REFINISH TECHNICIAN) Pathologist [facility] ANTI HBS QUANT <3.50 mIU/mL 02/26/2023 9:26 PM AUTOMOTIVE REFINISH TECHNICIAN [facility] Blood BLOOD SPECIMEN / Unknown Venipuncture / Unknown 02/26/2023 1:55 PM AUTOMOTIVE REFINISH TECHNICIAN 02/26/2023 2:06 PM AUTOMOTIVE REFINISH TECHNICIAN Narrative [facility] - 02/26/2023 9:26 PM AUTOMOTIVE REFINISH TECHNICIAN <8.5 Considered not immune to HBV infection. >=8.5 to < 11.5 Indeterminate result, unable to dertermine if antibody is present at levels consistent with immunity. >= 11.5 Considered immune to HBV infection. Biotin supplements may cause clinically significant interference for this test assay. ??If interference is suspected, it is strongly recommended that biotin is discontinued for at least one week prior to retesting. Steven Lopez MD SEND OUTS Performing Organization Address [facility] Co de Phone Number [facility] [address] [place] [address], [place] * (ABNORMAL) CBC W PLT NO DIFF (02/26/2023 1:55 PM AUTOMOTIVE REFINISH TECHNICIAN) WHITE BLOOD COUNT 6.5 4.5 - 11.0 thou/cu mm 02/26/2023 2:18 PM AUTOMOTIVE REFINISH TECHNICIAN [facility] RED BLOOD COUNT 5.32(H) 4.00 - 5.20 mil/cu mm 02/26/2023 2:18 PM [facility] HEMOGLOBIN 14.5 12.0 - 16.0 g/dL 02/26/2023 2:18 PM AUTOMOTIVE REFINISH TECHNICIAN [facility] HEMATOCRIT 46.9 33.0 - 51.0 % 02/26/2023 2:18 PM AUTOMOTIVE REFINISH TECHNICIAN [facility] MCV 88 80 - 100 fL 02/26/2023 2:18 PM AUTOMOTIVE REFINISH TECHNICIAN [facility] MCH 27.3 26.0 - 34.0 pg 02/26/2023 2:18 PM [facility] MCHC 30.9(L) 32.0 - 36.0 g/dL 02/26/2023 2:18 PM [facility] RDW 19.5(H) 11.5 - 15.5 % 02/26/2023 2:18 PM [facility] PLATELET COUNT 127(L) 140 - 440 thou/cu mm 02/26/2023 2:18 PM [facility] MPV 11.1(H) 6.5 - 11.0 fL 02/26/2023 2:18 PM [facility] Blood BLOOD SPECIMEN / Unknown Venipuncture / Unknown 02/26/2023 1:55 PM AUTOMOTIVE REFINISH TECHNICIAN 02/26/2023 2:06 PM AUTOMOTIVE REFINISH TECHNICIAN Narrative [facility] - 02/26/2023 2:18 PM AUTOMOTIVE REFINISH TECHNICIAN This procedure was originally ordered at [facility]. Steven Lopez MD HEMATOLOGY [facility] [address] [place] [address], * (ABNORMAL) HEMOGLOBIN A1C MONITORING (POCT) (02/26/2023 1:55 PM AUTOMOTIVE REFINISH TECHNICIAN) HEMOGLOBIN A1C MONITORING (POCT) 7.6(H) <=6.4 % 02/26/2023 2:07 PM [facility] Blood BLOOD SPECIMEN / Unknown Venipuncture / Unknown 02/26/2023 1:55 PM AUTOMOTIVE REFINISH TECHNICIAN 02/26/2023 2:07 PM AUTOMOTIVE REFINISH TECHNICIAN Narrative [facility] - 02/26/2023 2:07 PM AUTOMOTIVE REFINISH TECHNICIAN ? (<=6.9%) ? Indicates good control ? (7.0% to 7.9%) ? Indicates fair control ? (>=8.0%) ? Indicates poor control ?? NOTE: ??These thresholds are guidelines and ?individual targets may vary. Falsely low levels may be seen with: Recent Transfusion, Recent Significant Blood Loss, Hemolytic Diseases, or Falsely elevated levels may be seen with: Untreated Anemias, Splenectomy ? Jossy Henson MD CHEMISTRY [facility] [address] [place] [address], * (ABNORMAL) COMP METABOLIC PANEL (02/26/2023 1:55 PM AUTOMOTIVE REFINISH TECHNICIAN) SODIUM 140 136 - 145 mmol/L 02/26/2023 9:22 PM [facility] POTASSIUM 4.0 3.5 - 5.1 mmol/L 02/26/2023 9:22 PM [facility] CHLORIDE 99 98 - 107 mmol/L 02/26/2023 9:22 PM [facility] CO2,TOTAL 29 22 - 29 mmol/L 02/26/2023 9:22 PM [facility] ANION GAP 12 5 - 18 02/26/2023 9:22 PM [facility] GLUCOSE 262(H) 70 - 99 mg/dL 02/26/2023 9:22 PM [facility] CALCIUM 9.5 8.8 - 10.2 mg/dL 02/26/2023 9:22 PM [facility] BUN 16 8 - 23 mg/dL 02/26/2023 9:22 PM [facility] CREATININE 0.73 0.50 - 0.90 mg/dL 02/26/2023 9:22 PM [facility] BUN/CREAT RATIO 22(H) 10 - 20 9:22 PM [facility] eGFR >90 >90 mL/min/1.7 3m2 02/26/2023 9:22 PM [facility] Comment:As of 2021, eG FR is calculated by the CKD-EPI creatinine equation without race adjustment. ??eGFR can be influenced by muscle mass, exercise, and diet. ??The reported eGFR is an estimation only and is only applicable if the renal function is stable. ALBUMIN 4.1 4.0 - 4.9 g/dL 02/26/2023 9:22 PM [facility] PROTEIN,TOTAL 6.2 6.0 - 8.0 g/dL 02/26/2023 9:22 PM [facility] BILIRUBIN,TOTAL 0.2 0.0 - 1.2 mg/dL 02/26/2023 9:22 PM [facility] ALK PHOSPHATASE 144(H) 35 - 104 IU/L 02/26/2023 9:22 PM [facility] ALT (SGPT) 31 10 - 35 IU/L 02/26/2023 9:22 PM [facility] AST (SGOT) 14 10 - 35 IU/L 02/26/2023 9:22 PM [facility] Blood BLOOD SPECIMEN / Unknown Venipuncture / Unknown 02/26/2023 1:55 PM AUTOMOTIVE REFINISH TECHNICIAN 02/26/2023 2:06 PM [facility] Steven Lopez MD [facility] [address] [place] [address], * LDL CHOLESTEROL,DIRECT (02/26/2023 1:55 AM AUTOMOTIVE REFINISH TECHNICIAN) LDL CHOLESTEROL,DI RECT 96 mg/dL 02/26/2023 9:24 PM AUTOMOTIVE REFINISH TECHNICIAN [facility] PROVIDER ORDERED STATUS RANDOM 02/26/2023 9:24 PM AUTOMOTIVE REFINISH TECHNICIAN [facility] Blood BLOOD SPECIMEN / Unknown Venipuncture / Unknown 02/26/2023 1:55 AM AUTOMOTIVE REFINISH TECHNICIAN 02/26/2023 2:36 PM AUTOMOTIVE REFINISH TECHNICIAN Narrative [facility] - 02/26/2023 9:24 PM AUTOMOTIVE REFINISH TECHNICIAN Optimal ?<100 mg/dl Near Optimal ?100-129 mg/dl Borderline High ?? 130-159 mg/dl High ?160-189 mg/dl Very High ? >=190 mg/dl Jossy Henson MD CHEMISTRY Performing Organization Address City/State/[facility] Co de Phone Number [facility] [address] [place] [phone], from Last 3 Months Advance Directives Documents on File Type Date Recorded Patient [employer] Salesperson Expl anation POLST 07/18/2020 Care Teams Principal Process Engineer Relationship Specialty Start Date End Date Jossy Henson MD [address] [place] [address] PCP - General Family Practice 10/03/21 Steven Lopez MD [address] [facility] [address] [place] [address] Rheumatology Rheumatology 10/25/[address] [address] 08/28/21 RN Home Health Nurse 06/04/22 Karyn Swift 07/17/21
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
== END 2023-03-21 19:19 | disposition home or self-care (01) ==
LOC: ED 19:06
PROVIDERS: Emergency Provider Emergency Medicine; PCP Family Medicine
DX: M19.09 Primary osteoarthritis, other specified site (principal)
CPT/HCPCS: 73630; 99283; A9270